=== PATIENT | female | born 1960 | race Caucasian/White ===

== ENCOUNTER → 2018-02-01 12:44 | Outpatient (CLI) | payer OTHER, SELFPAY ==
--- NOTE | 2018-02-01 12:46 | XR_ITS ---
XR DEXA axial skeleton HISTORY: ITS.REASON: menopausal ORDERING PHYSICIAN: Ozzie Palma MD PATIENT AGE: 57 years COMPARISON: None FINDINGS: The BMD measured at the left femoral neck is 0.905 g/cm squared with a T score of -1.0 . This is considered Normal according to the World Health Organization criteria. Fracture risk is Low. Treatment is advised. IMPRESSION: Normal bone density. Suggest follow-up exam January 2020
== END ==
PROVIDERS: PCP Internal Medicine Adolescent Medicine; Visit Provider Obstetrics & Gynecology
DX: Z13.820 Encounter for screening for osteoporosis (principal); Z78.0 Asymptomatic menopausal state
CPT/HCPCS: 77080

== ENCOUNTER → 2018-11-30 13:40 | Outpatient (CLI) | payer OTHER, SELFPAY ==
[2018-11-30 14:08] LABS: Basophils # 0.1 K/mm3 (0-0.2); Eosinophils # 0.4 K/mm3 (0.0-0.4); Eosinophils % 6.8 % (0.1-12.0); Hemoglobin 13.5 g/dL (12.2-16.2); Lymphocytes % 34.2 % (10-50); Mean Corpuscular HGB Conc 33.8 g/dL (31.8-35.4); Mean Corpuscular Volume 85.6 fl (81-99); Mean Platelet Volume 7.2 fl (7.4-10.4); Monocytes # 0.3 K/mm3 (0.1-1.0); Monocytes % 5.7 % (1.7-9.3); Neutrophils # 3.1 K/mm3 (1.8-7.8); Neutrophils % 52.3 % (37.0-80.0); Platelet Count 414 K/mm3 (142-424); Red Blood Count 4.67 M/mm3 (4.20-5.40); Red Cell Distribution Width 13.3 % (11.5-17.5); White Blood Count 5.8 K/mm3 (4.8-10.8)
[2018-11-30 15:29] LABS: Erythrocyte Sedimentation Rate 22 mm/hr (0-30)
[2018-11-30 15:53] LABS: Alanine Aminotransferase 31 U/L (12-78); Albumin Level 4.2 gm/dL (3.4-5.0); Albumin/Globulin Ratio 1.2 (1.1-1.8); Alkaline Phosphatase 109 U/L (46-116); Anion Gap 17.4 mEq/L (5-15); Aspartate Amino Transferase 24 U/L (15-37); Bilirubin,Total 0.3 mg/dL (0.2-1.0); Blood Urea Nitrogen 10 mg/dL (7-18); Carbon Dioxide 23 mmol/L (21.0-32.0); Chloride 104 mmol/L (98-107); Creatinine,Serum 0.73 mg/dL (0.55-1.02); Estimated Glomerular Filt Rate 82 ml/min (>60); Ferritin 172 ng/mL (8-388); GFR (African American) 99 ML/MIN (>60); Globulin 3.6 gm/dl (1.3-3.2); Glucose 65 mg/dL (74-106); Potassium 4.4 mmoL/L (3.5-5.1); Sodium 140 mmol/L (136-145); Total Protein,Serum 7.8 gm/dL (6.4-8.2)
[2018-11-30 16:27] LABS: C-Reactive Protein < 0.2 mg/L (0.0-0.9)
[2018-12-02 08:26] LABS: Iron 86 ug/dL (27-159); UIBC 309 ug/dL (131-425)
[2018-12-02 18:09] LABS: Iron Saturation 22 % (15-55)
== END ==
PROVIDERS: Visit Provider Internal Medicine Medical Oncology
DX: D47.3 Essential (hemorrhagic) thrombocythemia (principal)
CPT/HCPCS: 36415; 80053; 81270; 82728; 83540; 83550; 85025; 85651; 86140

== ENCOUNTER → 2019-01-15 11:51 | Outpatient (CLI) | payer OTHER, SELFPAY ==
[2019-01-15 12:39] LABS: Basophils # 0.1 K/mm3 (0-0.2); Basophils % 0.9 % (0.1-2.0); Eosinophils # 0.4 K/mm3 (0.0-0.4); Eosinophils % 6.6 % (0.1-12.0); Hematocrit 37.3 % (37.0-47.0); Hemoglobin 12.7 g/dL (12.2-16.2); Lymphocytes # 1.9 K/mm3 (0.7-4.5); Lymphocytes % 28.2 % (10-50); Mean Corpuscular Hemoglobin 29.3 pg (27.0-31.2); Mean Corpuscular Volume 86.2 fl (81-99); Mean Platelet Volume 7.5 fl (7.4-10.4); Monocytes # 0.3 K/mm3 (0.1-1.0); Monocytes % 4.3 % (1.7-9.3); Platelet Count 429 K/mm3 (142-424); Red Blood Count 4.33 M/mm3 (4.20-5.40); Red Cell Distribution Width 13.4 % (11.5-17.5); White Blood Count 6.6 K/mm3 (4.8-10.8)
== END ==
PROVIDERS: Visit Provider Internal Medicine Medical Oncology
DX: D47.3 Essential (hemorrhagic) thrombocythemia (principal)
CPT/HCPCS: 36415; 85025

== ENCOUNTER → 2019-06-22 14:49 | Outpatient (CLI) | payer OTHER, SELFPAY ==
[2019-06-22 15:26] LABS: Basophils # 0.1 K/mm3 (0-0.2); Basophils % 0.9 % (0.1-2.0); Eosinophils # 0.5 K/mm3 (0.0-0.4); Eosinophils % 7.7 % (0.1-12.0); Hemoglobin 12.6 g/dL (12.2-16.2); Lymphocytes # 1.9 K/mm3 (0.7-4.5); Lymphocytes % 27.9 % (10-50); Mean Corpuscular HGB Conc 32.3 g/dL (31.8-35.4); Mean Corpuscular Hemoglobin 28.9 pg (27.0-31.2); Mean Corpuscular Volume 89.3 fl (81-99); Mean Platelet Volume 7.7 fl (7.4-10.4); Monocytes # 0.4 K/mm3 (0.1-1.0); Monocytes % 5.5 % (1.7-9.3); Platelet Count 417 K/mm3 (142-424); Red Blood Count 4.37 M/mm3 (4.20-5.40); Red Cell Distribution Width 13.5 % (11.5-17.5); White Blood Count 6.9 K/mm3 (4.8-10.8)
== END ==
PROVIDERS: Visit Provider Internal Medicine Medical Oncology
DX: D64.9 Anemia, unspecified (principal)
CPT/HCPCS: 36415; 85025

== ENCOUNTER → 2019-11-09 12:55 | Outpatient (CLI) | payer OTHER, SELFPAY ==
[2019-11-09 14:31] LABS: Anion Gap 16.7 mEq/L (5-15); Blood Urea Nitrogen 12 mg/dl (7-17); Calcium 11.2 mg/dl (8.4-10.2); Carbon Dioxide 23 mmol/L (22.0-30.0); Chloride 103 mmol/L (98-107); Estimated Glomerular Filt Rate 102 ml/min (>60); GFR (African American) 124 ML/MIN (>60); Glucose 81 mg/dl (74-100); Potassium 4.7 mmoL/L (3.5-5.1); Sodium 138 mmol/L (136-145)
[2019-11-09 14:48] LABS: Free T4 (Free Thyroxine) 0.83 ng/dl (0.78-2.19)
[2019-11-09 15:03] LABS: Thyroid Stimulating Hormone 2.58 uIU/mL (0.465-4.68)
[2019-11-10 09:38] LABS: Lithium (Eskalith(R)) 0.9 mmol/L (0.6-1.2)
== END ==
PROVIDERS: Visit Provider Emergency Medicine
DX: R53.83 Other fatigue (principal)
CPT/HCPCS: 80048; 80178; 84439; 84443

== ENCOUNTER → 2019-11-12 13:31 | Outpatient (CLI) | payer OTHER, SELFPAY ==
[2019-11-16 11:22] LABS: Calcium, Ionized 5.8 mg/dL (4.5-5.6); Parathyroid Hormone Intact 26 pg/mL (15-65); Vitamin D 25 Hydroxy 50.5 ng/mL (30.0-100.0)
== END ==
PROVIDERS: Visit Provider Physician Assistant
DX: E83.52 Hypercalcemia (principal)
CPT/HCPCS: 36415; 82330; 82652; 83970

== ENCOUNTER → 2019-12-04 07:46 | Outpatient (CLI) | payer OTHER, SELFPAY ==
--- NOTE | 2019-12-04 07:46 | CT_ITS ---
PROCEDURE: CT LUNG SCREENING CLINICAL INDICATION: lung ca screening 30+ pack-year smoking history lung cancer the the COMPARISON: CHW CT CHEST W/ CONTRAST from 06/23/2017 TECHNIQUE: The exam was performed on a GE Light Speed [address] scanner using 2.90 mGy CTDI. A low dose helical CT CHEST was performed on a multi-detector scanner. All CT scans at the facility use one or more dose reduction, viz: automated exposure control, ma/kV adjustment per patient size (including targeted exams where dose is matched to indication, i.e. head), or iterative reconstruction technique. The LDCT was performed in a facility that meets the criteria for the screening program. Data regarding this exam was submitted to ACR which is an approved registry. The order for this exam indicates that it came as a result of a lung cancer screening counseling shard decision-making visit that included all the elements required of such a visit including smoking cessation. The radiologist interpreting this exam meets the CMS criteria for the LDCT lung cancer screening program. The exam is reported using the Lung-RADS classification scale and reported to the ACR registry. NOTE: This study was performed for the specific purposes of lung cancer screening and is not an alternative to diagnostic chest CT. RADIATION DOSE: CTDI vol(CT dose Index-volume) = 2.90mG DLP (Dose Length Product) = 103.42 mGcm FINDINGS: Changes of COPD. Fibrotic changes are present in the right middle lobe and lingula. No suspicious nodules are evident.. Granuloma is present in the left upper lobe. OTHER FINDINGS: No other pertinent findings evident. IMPRESSION: Lung rads category 1, negative Recommend annual LD CT Dictated by: Kwasi Jones MD 12/04/2019 14:17 Electronically signed by Kwasi Jones MD in [place] 12/04/2019 14:17
== END ==
PROVIDERS: PCP Emergency Medicine; Visit Provider Emergency Medicine
DX: Z87.891 Personal history of nicotine dependence (principal); Z12.2 Encounter for screening for malignant neoplasm of respiratory organs; E83.52 Hypercalcemia

== ENCOUNTER → 2019-12-17 10:07 | Outpatient (CLI) | payer OTHER, SELFPAY ==
[2019-12-17 10:58] LABS: Basophils # 0.1 K/mm3 (0-0.2); Eosinophils # 0.3 K/mm3 (0.0-0.4); Eosinophils % 5.8 % (0.1-12.0); Hematocrit 39.6 % (37.0-47.0); Hemoglobin 12.9 g/dL (12.2-16.2); Lymphocytes # 1.4 K/mm3 (0.7-4.5); Lymphocytes % 23.6 % (10-50); Mean Corpuscular HGB Conc 32.7 g/dL (31.8-35.4); Mean Corpuscular Volume 88.7 fl (81-99); Monocytes # 0.3 K/mm3 (0.1-1.0); Monocytes % 4.5 % (1.7-9.3); Neutrophils # 3.7 K/mm3 (1.8-7.8); Neutrophils % 65.1 % (37.0-80.0); Platelet Count 395 K/mm3 (142-424); Red Blood Count 4.46 M/mm3 (4.20-5.40); Red Cell Distribution Width 13.3 % (11.5-17.5); White Blood Count 5.7 K/mm3 (4.8-10.8)
[2019-12-17 11:58] LABS: Ferritin 129 ng/ml (11.1-264)
[2019-12-18 03:36] LABS: Iron 85 ug/dL (27-159); UIBC 301 ug/dL (131-425)
[2019-12-18 06:58] LABS: Iron Saturation 22 % (15-55)
== END ==
PROVIDERS: Visit Provider Internal Medicine Medical Oncology
DX: D64.9 Anemia, unspecified (principal)
CPT/HCPCS: 36415; 82728; 83540; 83550; 85025

== ENCOUNTER → 2019-12-25 11:27 | Outpatient (CLI) | payer OTHER, SELFPAY ==
[2019-12-25 13:18] LABS: Alanine Aminotransferase 22 U/L (12-78); Albumin Level 4.7 g/dl (3.5-5.0); Albumin/Globulin Ratio 1.7 (1.1-1.8); Alkaline Phosphatase 122 U/L (38-126); Anion Gap 13.6 mEq/L (5-15); Aspartate Amino Transferase 31 U/L (14-36); Bilirubin,Total 0.4 mg/dl (0.2-1.3); Blood Urea Nitrogen 10 mg/dl (7-17); Calcium 10.7 mg/dl (8.4-10.2); Carbon Dioxide 23 mmol/L (22.0-30.0); Chloride 106 mmol/L (98-107); Estimated Glomerular Filt Rate 102 ml/min (>60); GFR (African American) 123 ML/MIN (>60); Globulin 2.8 g/dL (1.3-3.2); Potassium 4.6 mmoL/L (3.5-5.1); Sodium 138 mmol/L (136-145); Total Protein,Serum 7.5 g/dl (6.3-8.2)
[2019-12-25 13:47] LABS: Thyroid Stimulating Hormone 2.24 uIU/mL (0.465-4.68)
[2019-12-25 14:00] LABS: Glucose 42 mg/dl (74-100)
[2019-12-26 12:56] LABS: Hemoglobin A1C 5.1 % (4.0-6.0)
[2019-12-28 09:16] LABS: Lithium (Eskalith(R)) 0.8 mmol/L (0.6-1.2)
== END ==
PROVIDERS: Visit Provider Nurse Practitioner Psychiatric/Mental Health
DX: Z00.00 Encounter for general adult medical examination without abnormal findings (principal); F31.9 Bipolar disorder, unspecified; Z79.899 Other long term (current) drug therapy
CPT/HCPCS: 36415; 80053; 80178; 83036; 84443

== ENCOUNTER 2020-01-28 10:27 | Observation (INO) | payer OTHER, SELFPAY ==
[2020-01-28] VITALS (10 sets, daily range): BP systolic 100–148; BP diastolic 72–82; PULSE 77–103; RESP 18–22; TEMP 36.6–37.3; O2SAT 91–100; BMI 26.2; BMI 26.7
--- NOTE | 2020-01-28 10:33 | ECG_ITS ---
APPROVED REPORT Exam: Resting ECG HR:77 bpm ECG Measurements Heart Rate 77 AXES FL 148 P 62 QRSd 82 QRS 63 QT 384 T 72 QTc 434 <Conclusion> Normal sinus rhythm Normal ECG Electronically signed by : Luigi Oconnell, 01/29/2020 15:52:34
--- NOTE | 2020-01-28 10:34 | XR_ITS ---
PROCEDURE: XR CHEST PORTABLE CLINICAL HISTORY: pain COMPARISON: CXR CHEST(2 VIEWS-NOT PORTABLE) from 04/22/[address] CHEST W/ CONTRAST from 06/23/2017 FINDINGS: The cardiomediastinal silhouette and pulmonary vascularity are within normal limits. There are mild atelectatic changes in the lung bases. Upper lobes are clear. No acute bony abnormalities. IMPRESSION: Mild bibasilar atelectasis Dictated by: Kwasi Jones MD 01/28/2020 10:48 Electronically signed by Kwasi Jones MD in [place] 01/28/2020 10:48
--- NOTE | 2020-01-28 10:37 | PC.NURSE ---
Rad at bedside
--- NOTE | 2020-01-28 10:43 | CT_ITS ---
PROCEDURE: CT ABDOMEN PELVIS WO CON CLINICAL INDICATION: pain Mid epigastric pain COMPARISON: No exams were available for comparison TECHNIQUE: Axial images obtained with sagittal and coronal reformats. All CT scans at the facility use one or more dose reduction, viz: automated exposure control, ma/kV adjustment per patient size (including targeted exams where dose is matched to indication, i.e. head), or iterative reconstruction technique. FINDINGS: LOWER THORAX: There are some atelectatic changes in the lung bases. Small metallic density is noted in the right breast inferior aspect. ABDOMEN & PELVIS: The liver, spleen, adrenal glands, pancreas, and kidneys have an unremarkable unenhanced CT appearance. Prior cholecystectomy. There is a small metallic density along the right aspect of the celiac artery and may be due to a displaced clip. This is not significantly changed. The There is thickening of the colon throughout which may be due to nondistention or colitis. A clip is present in the right lower quadrant. There was reported prior appendectomy. There is some fluid density in the cecum. There are post hysterectomy changes. No intestinal obstruction or free air. No acute bony anomalies. IMPRESSION: 1. Mild diffuse thickening of the colon which may be seen with colitis or may be due to nondistention. There is fatty infiltration of the wall of the colon. This is a nonspecific finding and could be seen with prior inflammation or obesity. 2. Otherwise negative. Dictated by: Kwasi Jones MD 01/28/2020 11:45 Electronically signed by Kwasi Jones MD in [place] 01/28/2020 11:45
--- NOTE | 2020-01-28 10:47 | HMH.EDGENADL ---
ED Disposition Clinical Impression: Bipolar 1 disorder Abdominal pain Qualifiers: Abdominal location: epigastric Qualified Code(s): R10.13 - Epigastric pain Disposition: Admitted as Observation Condition on Discharge: Good - Critical Care Critical Care Time: No Attestation: On 01/28/20, the high probability of a clinically significant, sudden or life threatening deterioration of the following system(s) required my full and direct attention, intervention and personal management. The time I documented below is in addition to time spent performing reported procedures but includes the following listed in this critical care notation. Medical Decision Making - Medical Records Medical records reviewed: Yes: I reviewed the patient's medical records. - Jd Inquiry Pt receiving controlled substance: No Vital Signs: 01/28/20 10:28 01/28/20 11:25 01/28/20 11:33 Temperature 99.1 F Temperature Source Oral Pulse Rate [Left Radial] 94 H 77 78 Respiratory Rate 20 Blood Pressure [Right Arm] 100/78 L 148/73 H 136/82 Blood Pressure Mean [Right Arm] 85 98 100 Blood Pressure Source [Right Arm] Automatic Cuff Automatic Cuff Blood Pressure Position [Right Arm] Sitting Sitting Sitting 02 Sat by Pulse Oximetry 98 97 98 Oxygen Delivery Method Room Air Room Air Room Air 01/28/20 11:58 Temperature Temperature Source Pulse Rate [Left Radial] 96 H Respiratory Rate Blood Pressure [Right Arm] 125/72 Blood Pressure Mean [Right Arm] 89 Blood Pressure Source [Right Arm] Automatic Cuff Blood Pressure Position [Right Arm] Right Lateral 02 Sat by Pulse Oximetry 100 Oxygen Delivery Method Room Air - Lab Data Lab results reviewed: Yes: I reviewed the patient's lab results. Lab Results 01/28/20 10:40: WBC 8.3, RBC 4.77, Hgb 14.3, Hct 42.0, MCV 88.2, MCH 30.0, MCHC 34.0, RDW 13.8, Plt Count 450 H, MPV 7.8, Neut % (Auto) 77.7, Lymph % (Auto) 17.5, [place] % (Auto) 3.6, Eos % (Auto) 0.7, Baso % (Auto) 0.5, Neut # (Auto) 6.5, Lymph # (Auto) 1.5, [place] # (Auto) 0.3, Eos # (Auto) 0.1, Baso # (Auto) 0.0 01/28/20 10:40: Sodium 136, Potassium 3.9, Chloride 103, Carbon Dioxide 22, Anion Gap 14.9, BUN 11, Creatinine 0.60, Estimated Creat Clear 93, Estimated GFR 102, Est GFR ( Amer) 123, Glucose 202 H, Calcium 10.2, Total Bilirubin 0.5, AST 61 H, ALT 37, Alkaline Phosphatase 109, Troponin I < 0.01, Total Protein 8.5 H, Albumin 5.1 H, Globulin 3.4 H, Albumin/Globulin Ratio 1.5, Amylase 78, Lipase 92 Result diagrams: 01/28/20 10:40 01/28/20 10:40 Orders (Tests/Meds): ED MEDICATIONS Generic Name Dose Route Start Last Admin Trade Name Freq PRN Reason Stop Dose Admin Sodium Chloride 1,000 mls @ 999 mls/hr 01/28/20 11:45 01/28/20 11:37 Sod Chlor 0.9% 1000ml Bag IV 01/28/20 12:45 999 mls/hr .Q1H1M MARIA M Administration Sodium Chloride 8 ml 01/28/20 10:44 Sodium Chloride 0.9% 10ml Vial IV 02/27/20 10:43 NEEDED PRN dilute pepcid Discontinued Medications Generic Name Dose Route Start Last Admin Trade Name Freq PRN Reason Stop Dose Admin Famotidine 20 mg 01/28/20 10:44 01/28/20 10:52 Pepcid 20mg/2ml Vial IV 01/28/20 10:45 20 mg ONCE ONE Administration Hydromorphone HCl 1 mg 01/28/20 12:05 01/28/20 12:06 Dilaudid 2mg/Ml Syringe IV 01/28/20 12:06 1 mg ONCE ONE Administration Metoclopramide HCl 10 mg 01/28/20 10:44 01/28/20 10:52 Reglan 10mg/2ml Vial IVP 01/28/20 10:45 10 mg ONCE ONE Administration Ondansetron HCl 4 mg 01/28/20 12:06 01/28/20 12:06 Zofran 4mg/2ml Vial IV 01/28/20 12:07 4 mg ONCE ONE Administration ORDERS Category Date Time Status [place] ([place]al[place](R)) Stat Lab 01/28/20 10:40 Received Rapid Coronavirus-19 IgG/IgM Stat Lab 01/28/20 11:51 Ordered Troponin I Q3H Lab 01/28/20 13:45 Ordered Troponin I Q3H Lab 01/28/20 16:45 Ordered - Radiology Data #1 Image(s): Chest Image Reviewed: Yes I reviewed the patient's rad
[2020-01-28 10:51] LABS: Basophils % 0.5 % (0.1-2.0); Eosinophils # 0.1 K/mm3 (0.0-0.4); Eosinophils % 0.7 % (0.1-12.0); Hemoglobin 14.3 g/dL (12.2-16.2); Lymphocytes # 1.5 K/mm3 (0.7-4.5); Lymphocytes % 17.5 % (10-50); Mean Corpuscular Volume 88.2 fl (81-99); Mean Platelet Volume 7.8 fl (7.4-10.4); Monocytes # 0.3 K/mm3 (0.1-1.0); Monocytes % 3.6 % (1.7-9.3); Neutrophils # 6.5 K/mm3 (1.8-7.8); Neutrophils % 77.7 % (37.0-80.0); Platelet Count 450 K/mm3 (142-424); Red Blood Count 4.77 M/mm3 (4.20-5.40); Red Cell Distribution Width 13.8 % (11.5-17.5); White Blood Count 8.3 K/mm3 (4.8-10.8)
[2020-01-28 10:56] LABS: Alanine Aminotransferase 37 U/L (12-78); Albumin Level 5.1 g/dl (3.5-5.0); Albumin/Globulin Ratio 1.5 (1.1-1.8); Alkaline Phosphatase 109 U/L (38-126); Amylase 78 U/L (30-110); Anion Gap 14.9 mEq/L (5-15); Aspartate Amino Transferase 61 U/L (14-36); Bilirubin,Total 0.5 mg/dl (0.2-1.3); Blood Urea Nitrogen 11 mg/dl (7-17); Calcium 10.2 mg/dl (8.4-10.2); Carbon Dioxide 22 mmol/L (22.0-30.0); Chloride 103 mmol/L (98-107); Creatinine Clearance Estimated 93 mL/min (50-200); Estimated Glomerular Filt Rate 102 ml/min (>60); GFR (African American) 123 ML/MIN (>60); Globulin 3.4 g/dL (1.3-3.2); Glucose 202 mg/dl (74-100); Lipase 92 U/L (23-300); Potassium 3.9 mmoL/L (3.5-5.1); Sodium 136 mmol/L (136-145); Total Protein,Serum 8.5 g/dl (6.3-8.2)
[2020-01-28 11:11] LABS: Troponin I < 0.01 ng/ml (0.00-0.034)
--- NOTE | 2020-01-28 11:49 | PC.NURSE ---
Calling Dr Cornejo at this time.
[2020-01-28 12:20] LABS: Coronavirus 19 IgG Antibody Negative (Negative); Coronavirus 19 IgM Antibody Negative (Negative)
--- NOTE | 2020-01-28 12:22 | PC.NURSE ---
attempted to call report no answer, will call back
--- NOTE | 2020-01-28 12:30 | PC.NURSE ---
Report received from Michelle Davila RN in ER.
--- NOTE | 2020-01-28 13:07 | HMH.PHAVTE ---
[facility] Pharmacy VTE Monitoring - Patient Demographics Admission date: 01/28/20 Report Date: 01/28/20 Time: 13:07 Allergies/Adverse Reactions: Patient Allergies Penicillins [PENICILLINS] Allergy (Unknown, Verified 12/24/19 14:10) Height: 1.5 m Weight: 60.016 kg Patient Problems: Current Active Problems Abdominal pain (Acute) Bipolar 1 disorder (Acute) - VTE Risk Labs: VTE Related Lab Results Hgb 14.3 g/dL (12.2-16.2) 01/28/20 10:40 Hct 42.0 % (37.0-47.0) 01/28/20 10:40 Plt Count 450 K/mm3 (142-424) H 01/28/20 10:40 BUN 11 mg/dl (7-17) 01/28/20 10:40 Creatinine 0.60 mg/dl (0.52-1.04) 01/28/20 10:40 Estimated Creat Clear 93 mL/min (50-200) 01/28/20 10:40 - Prophylaxis VTE Prophylaxis Ordered?: Yes Types of VTE Prophylaxis: TEDS Knee High Location of Applied Device: Bilateral Lower Extremeties
--- NOTE | 2020-01-28 13:14 | PC.NURSE ---
Dr Amato speaking with Fernando Benoit
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
[2020-01-28 15:33] LABS: Troponin I < 0.01 ng/ml (0.00-0.034)
[2020-01-28 17:34] LABS: Troponin I < 0.01 ng/ml (0.00-0.034)
--- NOTE | 2020-01-28 19:08 | PC.NURSE ---
report given to tj
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
[2020-01-29] VITALS (16 sets, daily range): BP systolic 118–154; BP diastolic 49–89; PULSE 78–116; RESP 16–20; TEMP 36.1–37.7; O2SAT 96–100; BMI 27.8
--- NOTE | 2020-01-29 05:40 | PC.NURSE ---
Pt is alert and oriented. Complains of epigastic pain medicate per MAR. Pt guarding Abd. Hyperactive bowel sound in all 4 quadrants. Lungs clear throughout 97% on room air.Pt's heart rate has been between 88-102 regular rhythm. Pt was able to rest comfortably after midnight with no complaints of N/V or Abd pain. Pt shower and receive full linen change. Pt removed TEDS after shower. Consent signed and on chart for EGD this am has been NPO since midnight.
[2020-01-29 06:27] LABS: Basophils % 0.2 % (0.1-2.0); Eosinophils # 0.1 K/mm3 (0.0-0.4)
[2020-01-29 06:33] LABS: Chloride 109 mmol/L (98-107); Potassium 3.7 mmoL/L (3.5-5.1); Sodium 137 mmol/L (136-145)
[2020-01-29 06:36] LABS: Anion Gap 10.7 mEq/L (5-15); Blood Urea Nitrogen 8 mg/dl (7-17); Carbon Dioxide 21 mmol/L (22.0-30.0); Creatinine Clearance Estimated 119 mL/min (50-200); Estimated Glomerular Filt Rate 126 ml/min (>60); GFR (African American) 152 ML/MIN (>60); Glucose 139 mg/dl (74-100)
[2020-01-29 06:46] LABS: Eosinophils % 0.4 % (0.1-12.0); Hematocrit 33.9 % (37.0-47.0); Lymphocytes # 1.6 K/mm3 (0.7-4.5); Mean Corpuscular HGB Conc 33.7 g/dL (31.8-35.4); Mean Corpuscular Hemoglobin 29.6 pg (27.0-31.2); Mean Corpuscular Volume 87.9 fl (81-99); Mean Platelet Volume 7.4 fl (7.4-10.4); Monocytes # 0.5 K/mm3 (0.1-1.0); Neutrophils # 10.9 K/mm3 (1.8-7.8); Neutrophils % 83.4 % (37.0-80.0); Platelet Count 384 K/mm3 (142-424); Red Blood Count 3.86 M/mm3 (4.20-5.40)
[2020-01-29 06:48] LABS: Hemoglobin 11.4 g/dL (12.2-16.2)
[2020-01-29 06:57] LABS: Calcium 8.5 mg/dl (8.4-10.2)
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
[2020-01-29 09:52] LABS: Lithium (Eskalith(R)) 0.2 mmol/L (0.6-1.2)
--- NOTE | 2020-01-29 10:01 | PC.NURSE ---
Pt went down at 0937 to radiology for modified barium swallow. Pt refused to do egd and stated they're not tricking me are they? This nuse explained that she was going for the modified barium swallow and she was ok with this. Surgery came to floor and stated pt was now wanting to proceed with egd. Surgery RN took pts chart, consent and peop check list done by security shift supervisor. Dr. Amato and Virginia Mason aprn were in room this am, and were aware of pt refusing to do egd. This nurse will make Dr. Amato aware of this. Awaiting update at this time. VSS before going for modified barium swallow.
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
--- NOTE | 2020-01-29 11:24 | INFXCTL.NOTE ---
Did call and speak to Shravan Mason APRN and make him aware that per surgery RN pt was going to have egd done.
--- NOTE | 2020-01-29 11:56 | HMH.SCOPE ---
- Procedure: Date: 01/29/20 Procedure Performed:: Esophagogastroduodenoscopy with biopsies Indications:: Patient is a 59-year-old female. She presented with significant epigastric pain and was admitted for inpatient management. Surgical consultation was obtained for upper endoscopy. Patient had previously had cholecystectomy at [facility]. I had actually performed EGD and colonoscopy on her in September 2018. Performing Provider:: Rinku Cornejo MD Referring Provider:: Federico Amato MD Sedation:: Propofol Procedure:: Patient was taken to endoscopy procedure room. She was positioned in a lateral decubitus position. Adequate intravenous sedation was achieved with anesthesia titration of propofol. Olympus endoscope was inserted via the oropharynx and advanced to the esophagus. Esophagus appeared unremarkable. Stomach was cannulated and insufflated retroflexion revealed a very tiny sliding hiatal hernia. Gastric lumen was unremarkable. Pylorus was widely patent and endoscope was advanced through the pylorus to the third portion of the duodenum. Duodenum and duodenal bulb were unremarkable. Endoscope was withdrawn into the gastric lumen and gastric antral mucosal biopsy was obtained for histopathologic analysis and for H. pylori assessment. A couple biopsies were obtained at the gastroesophageal junction. Couple biopsies were obtained at the distal esophagus to rule out microscopic esophagitis. Endoscope was withdrawn. Findings:: Very small tiny sliding hiatal hernia. Otherwise unremarkable upper endoscopy Recommendations:: No obvious etiology for epigastric pain on upper endoscopy Complications:: None Estimated blood obtained (mL): 2
--- NOTE | 2020-01-29 14:07 | P.PN_ITS ---
Internal Medicine - PN: Subj *Date: 01/29/20 *Time: 17:57 Interval history: 59-year-old female patient sitting up in bed in no apparent distress. Discussed upcoming EGD today, she is refusing procedure, possible medical outcomes explained she still continues to refuse procedure. Barium swallow ordered, patient is agreeable to this. at bedside and reports that is not taking her behavioral health medicine, patient reports she has them at home but she stopped taking them herself. Will consult Exam Vital signs and Labs for Last 24 Hours: Temp Pulse Resp BP Pulse Ox 98.6 F 79 18 142/73 H 96 01/29/20 12:45 01/29/20 12:45 01/29/20 12:45 01/29/20 12:45 01/29/20 12:45 Laboratory Results - last 24 hr 01/28/20 10:40: [place] 0.2 L 01/28/20 14:45: Troponin I < 0.01 01/28/20 17:04: Troponin I < 0.01 01/29/20 06:00: WBC 13.0 H D, RBC 3.86 L, Hgb 11.4 L D, Hct 33.9 L, MCV 87.9, MCH 29.6, MCHC 33.7, RDW 14.0, Plt Count 384, MPV 7.4, Neut % (Auto) 83.4 H, Lymph % (Auto) 12.0, [place] % (Auto) 4.0, Eos % (Auto) 0.4, Baso % (Auto) 0.2, Neut # (Auto) 10.9 H, Lymph # (Auto) 1.6, [place] # (Auto) 0.5, Eos # (Auto) 0.1, Baso # (Auto) 0.0 01/29/20 06:00: Sodium 137, Potassium 3.7, Chloride 109 H, Carbon Dioxide 21 L, Anion Gap 10.7, BUN 8 D, Creatinine 0.50 L, Estimated Creat Clear 119, Es timated GFR 126, Est GFR ( Amer) 152 D, Glucose 139 H D, Calcium 8.5 D I & O for Last 24 hours: Intake & Output 01/26/20 01/27/20 01/28/20 01/29/20 23:59 23:59 23:59 23:59 Intake Total 520 / 520 1455 / 1455 Output Total 300 / 300 Balance 520 / 520 1155 / 1155 Weight 132 lb 5 oz 138 lb 7 oz - Constitutional no acute distress - *Routine HEENT Exam Head: Present: normocephalic ENT: Present: mucous membranes moist - *Routine Neck Exam Present: full ROM, trachea midline. Absent: JVD, tracheal deviation - *Routine Respiratory Exam Present: CTA bilaterally. Absent: accessory muscle use - *Routine Cardiovascular Exam Present: RRR - *Routine Abdominal Exam Present: soft, normoactive bowel sounds. Absent: tenderness, firm - *Routine Extremities Exam Present: full ROM, pulses intact. Absent: cyanosis, calf tenderness - *Routine Neurological Exam Present: alert, oriented X3 - Routine Psychiatric Exam Present: unable to assess Assessment and Plan (1) Abdominal pain Current visit: Yes Status: Acute Qualifiers: Abdominal location: epigastric Qualified Code(s): R10.13 - Epigastric pain Category: Medical Code(s): R10.9 - Unspecified abdominal pain (2) Overweight with body mass index (BMI) 25.0-29.9 Current visit: No Status: Acute Category: Medical Code(s): E66.3 - Overweight (3) Bipolar 1 disorder Current visit: Yes Status: Acute Category: Medical Code(s): F31.9 - Bipolar disorder, unspecified - Assessment and plan all Dx Assessment and Plan for all problems:: Rounded w/ Dr. Amato, all orders per Dr. Amato 1. Barium Swallow
--- NOTE | 2020-01-29 16:00 | PC.NURSE ---
Called and clarified with Shravan Mason APRN that it was ok to schedule stress test for the am and also to cancel modified barium swallow. Have made Tanna at ext [phone] aware of the above. Have also called x [address] Amato/ Virginia Mason APRN aware Of Mary Kay Gilliland request for pt to have lithium 300 mg bid, wellbutrin xl q am 150 mg, and a one time dose of ativan or valium, because Mary Kay stated she is withdrawing from her psych meds likely. Called at 1538 and 1601. Awaiting cb at this time. Will cont to mx pt.
[2020-01-29 16:01] LABS: POC Glucose,Bedside 127 (70-110)
--- NOTE | 2020-01-29 16:49 | HMH.BHCONS ---
*Admission Date: 01/28/20 *Reason for consult:: bipolar disorder *History of present illness: I was consulted on patient regarding her medications; to evaluate these and see what she needs to be taking. I see her on an outpatient basis for her psychiatric medications. -I last saw her in my office on 01/24/2020. The plan was to taper her off her effexor; to decrease from 75mg daily down to 50mg daily for 2 weeks; then for her to cut them in 1/2 and take 25mg for 2 weeks then stop the medicine. -she did verbalize her understanding in the office. She states now that she totally stopped her effexor cold turkey when she got home. that she told her we were stopping this and she hasn't had it since then. -she originally came to the ER yesterday for epigastric pain -here for work up for this -and I was consulted to look into psychiatric medications -she states that she got confused and didn't remember what we talked about in my office She states that her came in today talking about her seeing a provider (myself) that was taking her off all her medications. That it was not safe and he had to deal with her at home. No us. I called her ; Roberto. -Som requested this -she is a poor historian -she states that he keeps her medications and gives them to her as they are prescribed -but with the COVID-19; he hasn't been coming to her appointments with her He did answer when I called. He states that she has been off her medications for some time. He states that she stopped the Effexor after her 1st visit here. Then she recently stopped the wellbutrin cold turkey. He states that he knew something was off cause she was being a total 'bitch' to him. That she was snappy; irritable; yelling more. -states that before this he would find the pills in the trash where she wasn't taking them I discussed with him and her what the plan was at our last appointment. (see above) They both agree to the above. She should be taking the following medications: 1. [place] 300mg BID -last lithium level was 0.8 on 12/25/2019 -however; lithium level drawn on 01.28.2020 in the ER was only 0.2; not sure of compliance here 2. Wellbutrin XL 150mg daily in the am MMSE: Examination reveals patient to have no apparent serious mental status abnormalities. Patient is normal in appearance with age appropriate dress and grooming and appears to be stated age. Neither depression nor mood elevation is evident. Speech is normal in rate, volume, and articulation and language skills are intact. Patient convincingly denies suicidal and self injurious ideas or intentions. Homicidal or assaultive ideas or intentions are also denied. Hallucinations and delusions are denied and behavior is generally appropriate. Associations are intact, thinking is basically logical and thought content is appropriate. There are no signs of cognitive difficulty, based on vocabulary and fund of knowledge. Memory is intact for recent and remote events and the patient is oriented to time, place, and person. There are no apparent signs of anxiety. A normal attention span is in evidence and patient exhibits no signs of hyperactivity. Insight and judgment appear intact. RECOMMENDATIONS: 1. [place] 300mg BID -last lithium level was 0.8 on 12/25/2019 -however; lithium level drawn on 01.28.2020 in the ER was only 0.2; not sure of compliance here 2. Wellbutrin XL 150mg daily in the am 3. She will need to continue to see me on an outpatient basis for psychotropic medication management. -next appointment is set for 02.21.2020 at 1000. TIME IN: 1515 time out : 1600 [facility] History Medical History: Reports:: Anxiety, Depression, Gastroesophageal Reflux Disease(GERD), Hyperlipidemia, Hypertension, Seizures Denies:: Cancer, Diabetes Mellitus Type 1, Diabetes Mellitus Type 2, Internal Pacemaker, Lung Disease, MRSA *Have you ever received a pneumonia vaccine?: No *Have you received a flu vaccine this season?: No An
--- NOTE | 2020-01-29 17:03 | PC.NURSE ---
Spoke with Dr. Oconnell and he did re order pts lithium and bupropion xl as odered per home med list and to give first dose now.
--- NOTE | 2020-01-29 20:14 | PC.NURSE ---
Pt alert and oriented and able to make needs known. RR even and unlabored. Current temp 98.4. PRN tylenol given earlier this shift in RE to temp 99.9. Did make Val in Dr. Burton office of Mary Kay Gilliland, nurse pract's request for meds and she stated Dr. Amato was out of the office and he would be in ER tonight. Dr. Oconnell integration software engineer and gave order's. See other nurse's note. CB in reach. has been here intermittently this shift. VSS. Pt is calm and pleasant currently. Report given to current RN
--- NOTE | 2020-01-30 | CA_ITS ---
APPROVED REPORT Exam: Pharmacologic Technologist: Mahi Flores, Ht: 4 ft 11 in Wt: 130 lbs BSA: 1.54 m2 HR: 98 bpm BP: 170/71 mmHg Indications: Chest pain Medical History Medications: buPRopion, gemfibrozil. Asa, Omperazole, Venalafaxine, Deport Allergies: PCN Cardiac Risk Factors: Hyperlipidemia Stress Test Details Test: LEXISCAN HR Resting HR: 106 bpm Max Heart Rate (APMHR): 160 bpm Max HR Achieved: 130 bpm Target HR (85% APMHR): 136 bpm % of APMHR: 81 Recovery HR: 119 bpm BP Resting BP: 170/71 mmHg Max BP: 170/71 mmHg Recovery BP: 151.0/71.0 mmHg ECG Resting ECG: NSRBrief SOA with mild nausea Clinical Exercise duration: 04:01 min Highest Stage Achieved: Stress ECG Conclusion Brief SOA with mild nausea and malaise during peak infusion that resolved during recovery. No chest pain. No arrhythmia. NS T wave flattening. Unremarkable lexiscan. Images reported separetly. Test Summary REST . . . . . . . Resting REST 03:10 . . 106 . 170/ 71 . . Stage 1 01:00 . . 127 . . . . Stage 2 01:00 . . 126 . 157/ 73 . . Stage 3 01:00 . . 120 . 158/ 72 . . Stage 4 01:00 . . 120 . 151/ 74 . . Stage 4 01:01 . . 120 . 151/ 74 . Stop exercise at 04:01 RECOVERY 01:00 . . 120 . . . . RECOVERY 02:00 . . 120 . . . . RECOVERY 03:00 . . 117 . 151/ 71 . . RECOVERY 04:00 . . 116 . 151/ 71 . . RECOVERY 04:18 . . 119 . 151/ 71 . . Electronically signed by : John Sadler, 01/31/2020 09:26:18
--- NOTE | 2020-01-30 03:25 | PC.NURSE ---
A&O X4. PT RESTED WELL WITH EYES CLOSED T/O SHIFT. PT DENIES PAIN. DENIES N/V. C/O DIARRHEA T/O PREVIOUS SHIFT. WILL PLAN TO COLLECT FOR STOOL SPECIMEN UPON NEXT BM. REMAINS NPO SINCE 0000 FOR STRESS TESTING THIS AM. BILATERAL LUNGS NOTED CLEAR T/O UPON AUSCULTATION. TOLERATES RA WELL. VSS. REMAINS SAFE. CALL LIGHT WITHIN REACH. WILL CONTINUE TO MONITOR.
[2020-01-30 03:58] VITALS: BP 126/80; PULSE 75; RESP 16; TEMP 37.1; O2SAT 98
[2020-01-30 05:09] VITALS: BMI 27.7
[2020-01-30 06:45] LABS: Basophils % 0.3 % (0.1-2.0); Eosinophils # 0.3 K/mm3 (0.0-0.4); Eosinophils % 3.5 % (0.1-12.0); Hematocrit 33.8 % (37.0-47.0); Hemoglobin 11.3 g/dL (12.2-16.2); Lymphocytes # 1.8 K/mm3 (0.7-4.5); Lymphocytes % 23.7 % (10-50); Mean Corpuscular HGB Conc 33.6 g/dL (31.8-35.4); Mean Corpuscular Hemoglobin 29.6 pg (27.0-31.2); Mean Corpuscular Volume 88.3 fl (81-99); Mean Platelet Volume 7.9 fl (7.4-10.4); Monocytes # 0.4 K/mm3 (0.1-1.0); Monocytes % 5.9 % (1.7-9.3); Neutrophils % 66.7 % (37.0-80.0); Platelet Count 365 K/mm3 (142-424); Red Blood Count 3.83 M/mm3 (4.20-5.40); Red Cell Distribution Width 13.8 % (11.5-17.5); White Blood Count 7.5 K/mm3 (4.8-10.8)
[2020-01-30 07:01] LABS: Chloride 109 mmol/L (98-107); Sodium 140 mmol/L (136-145)
[2020-01-30 07:02] LABS: Potassium 3.5 mmoL/L (3.5-5.1)
[2020-01-30 07:04] LABS: Blood Urea Nitrogen 6 mg/dl (7-17); Creatinine Clearance Estimated 118 mL/min (50-200); Estimated Glomerular Filt Rate 126 ml/min (>60); GFR (African American) 152 ML/MIN (>60)
[2020-01-30 07:05] LABS: Anion Gap 11.5 mEq/L (5-15); Carbon Dioxide 23 mmol/L (22.0-30.0); Glucose 126 mg/dl (74-100)
[2020-01-30 08:00] VITALS: BP 167/84; PULSE 86; RESP 18; TEMP 36.8; O2SAT 99
--- NOTE | 2020-01-30 08:00 | NM_ITS ---
APPROVED REPORT Exam: Nuclear Stress Test Indication: Chest pain, High cholesterol, Former tobacco use Patient Location: Inpatient Stress Tech: Mahi Flores HI Tech:Tanna Cotto VAMSHIT, RT (R)(N) Ht: 4 ft 11 in Wt: 130 lbs Bra Size: 36B HR: 98 bpm BP: 170/71 mmHg BSA: 1.54 m2 BMI: 26.2 History: Chest pain, High cholesterol, Former tobacco use Procedure: Patient received a 0.4 mg of intravenous Lexiscan, resting heart rate 98 bpm, resting blood pressure 170/71 mmHg, with Lexiscan maximum heart rate achived was 126 bpm which is % of the maximum predicted heart rate and blood pressure was 157/73 mmHg. With Lexiscan, patient denied any complaint of chest pain. Cardiac Stress and Resting SPECT Images: Cardiac Stress and Resting SPECT images were obtained using technetium 99m Myoview 30.7 mCi stress and 10.52 mCi at rest. Fixed defect involves the apex consistent with an area of infarction No reversible defects evident Normal EF 71% Conclusion: Fixed defect involves the apex consistent with an area of infarction No reversible defects evident Normal EF 71% Electronically signed by : Kwasi Jones MD 01/30/2020 13:41:22
--- NOTE | 2020-01-30 13:45 | HMH.DCSUM ---
General - General Admission date:: 01/28/20 Discharge date: 01/30/20 HPI HPI: this pt has progressive upper abd pain over the last 3 days- pt with no melena and was seen in the ed and had persistent pain despite meds in the ed and was admitted for eval and treatment Hospital Course Hospital Course: 59-year-old female patient presented to the emergency room with complaints of epigastric pain for 3 days she she does admit to nausea, denies emesis, fever chills body ache. She also denies radiation of pain, melena, EtOH, or NSAID use. In the ER she received famotidine, hydromorphone, metoclopramide, ondansetron, and IV fluids. CBC and BMP were unremarkable, lithium level was 0.2. Trop NEG x 3, COVID IgG/IgM NEG 01/28/20 CXR: IMPRESSION: Mild bibasilar atelectasis Dictated by: Dr. Jones 01/28/20 Abd/Pelvis: IMPRESSION: 1. Mild diffuse thickening of the colon which may be seen with colitis or may be due to nondistention. There is fatty infiltration of the wall of the colon. This is a nonspecific finding and could be seen with prior inflammation or obesity. 2. Otherwise negative. Dictated by: Robert 01/30/20 BH seen and rec: RECOMMENDATIONS: 1. [place] 300mg BID -last lithium level was 0.8 on 12/25/2019 -however; lithium level drawn on 01.28.2020 in the ER was only 0.2; not sure of compliance here 2. Wellbutrin XL 150mg daily in the am 3. She will need to continue to see me on an outpatient basis for psychotropic medication management. -next appointment is set for 02.21.2020 at 1000 (Per Corazon ENGINE HEAD REPAIRER). 01/30/20 EGD: Procedure:: Patient was taken to endoscopy procedure room. She was positioned in a lateral decubitus position. Adequate intravenous sedation was achieved with anesthesia titration of propofol. Olympus endoscope was inserted via the oropharynx and advanced to the esophagus. Esophagus appeared unremarkable. Stomach was cannulated and insufflated retroflexion revealed a very tiny sliding hiatal hernia. Gastric lumen was unremarkable. Pylorus was widely patent and endoscope was advanced through the pylorus to the third portion of the duodenum. Duodenum and duodenal bulb were unremarkable. Endoscope was withdrawn into the gastric lumen and gastric antral mucosal biopsy was obtained for histopathologic analysis and for H. pylori assessment. A couple biopsies were obtained at the gastroesophageal junction. Couple biopsies were obtained at the distal esophagus to rule out microscopic esophagitis. Endoscope was withdrawn. Findings:: Very small tiny sliding hiatal hernia. Otherwise unremarkable upper endoscopy Recommendations:: No obvious etiology for epigastric pain on upper endoscopy (Per Dr. Cornejo) After EGD showed no obvious etiology for epigastric pain, upon further assessment patient was still complaining of sharp substernal pain, with the risk factors of obesity, longtime smoker, and hyperlipidemia ordered a stress test. 01/30/20 Stress Test: Conclusion: Fixed defect involves the apex consistent with an area of infarction No reversible defects evident Normal EF 71% Electronically signed by : Dr. Kwasi Jones Will D/C home today: 1. We will discharge home today 2. We will discharge with Carafate, Prilosec 3. Continue recommendations from and [facility] appt 4. Follow-up in primary care in 1 week Objective Vital signs: Temp Pulse Resp BP Pulse Ox 98.2 F 86 18 167/84 H 99 01/30/20 08:00 01/30/20 08:00 01/30/20 08:00 01/30/20 08:00 01/30/20 08:00 no acute distress - *Routine HEENT Exam Head: Present: normocephalic ENT: Present: mucous membranes moist - *Routine Neck Exam Present: full ROM, trachea midline. Absent: JVD, tracheal deviation - *Routine Respiratory Exam Present: CTA bilaterally. Absent: accessory muscle use - *Routine Cardiovascular Exam Present: RRR - *Routine Abdominal Exam Present: soft, normoactive bowel sounds. Absent: te
== END 2020-01-30 16:18 | disposition home or self-care (01) ==
LOC: ER 10:29 → 2ND 12:01
PROVIDERS: Nurse Practitioner Family; Surgery; Admitting Provider Emergency Medicine; Emergency Provider Emergency Medicine; PCP Emergency Medicine; Visit Provider Emergency Medicine
PROC: 0DJ08ZZ Inspection of Upper Intestinal Tract, Via Natural or Artificial Opening Endoscopic (ICD-10-PCS; CPT 43235; principal; 2020-01-29 11:30)
DX: R10.9 Unspecified abdominal pain (principal); I10 Essential (primary) hypertension; E78.5 Hyperlipidemia, unspecified; Z87.891 Personal history of nicotine dependence; F31.9 Bipolar disorder, unspecified; Z88.0 Allergy status to penicillin; Z79.899 Other long term (current) drug therapy; Z79.82 Long term (current) use of aspirin; K21.9 Gastro-esophageal reflux disease without esophagitis; K44.9 Diaphragmatic hernia without obstruction or gangrene
CPT/HCPCS: 43239; 36415; 71045; 74176; 78452; 80048; 80053; 80178; 82150; 82962; 83690; 84484; 85025; 86328; 88305; 93005; 93017; 96365; 96375; 96376; 99284; A9502; G0378; J2405; J2785

== ENCOUNTER 2020-02-14 13:24 | Emergency (ER) | payer OTHER, SELFPAY ==
[2020-02-14 13:25] VITALS: BP 169/83; PULSE 87; RESP 18; TEMP 36.8; O2SAT 99; BMI 26.2
--- NOTE | 2020-02-14 13:47 | CT_ITS ---
PROCEDURE: CT ABDOMEN PELVIS WO CON CLINICAL INDICATION: EPIGASTRIC PAIN, N/V Nausea, vomiting, epigastric pain COMPARISON: CT ABDOMEN PELVIS WO CON from 01/28/2020 TECHNIQUE: Axial images obtained with sagittal and coronal reformats. All CT scans at the facility use one or more dose reduction, viz: automated exposure control, ma/kV adjustment per patient size (including targeted exams where dose is matched to indication, i.e. head), or iterative reconstruction technique. FINDINGS: LOWER THORAX: There are atelectatic or fibrotic changes in the right middle lobe ABDOMEN & PELVIS: Post cholecystectomy. The liver, spleen, adrenal glands, and pancreas have an unremarkable unenhanced CT appearance. No renal or ureteral calculi. No hydronephrosis. No intestinal obstruction or free air. The appendix is not clearly delineated. No evidence of appendicitis. There is thickening of the wall of the cecum, ascending colon, splenic flexure, descending colon, and sigmoid colon at the rectosigmoid region. Colitis is considered. There has been some improvement in the thickening of the mid aspect of the transverse colon. There is submucosal fat deposition within the colon. This may be seen as sequela from prior infectious/inflammatory process or increased body fat content.. No intestinal obstruction or free air. No abnormal fluid collection. There has been a prior hysterectomy. The there is a small umbilical hernia which contains fat. No acute bony findings. IMPRESSION: Persistent thickening the mucosa of the large bowel. This is somewhat improved in the transverse colon region. Colitis is a consideration. No new findings apparent Dictated by: Kwasi Jones MD 02/14/2020 14:27 Electronically signed by Kwasi Jones MD in [place] 02/14/2020 14:27
[2020-02-14 14:10] LABS: Basophils % 0.5 % (0.1-2.0); Chloride 105 mmol/L (98-107); Eosinophils # 0.2 K/mm3 (0.0-0.4); Eosinophils % 2.2 % (0.1-12.0); Hematocrit 42.2 % (37.0-47.0); Hemoglobin 14.1 g/dL (12.2-16.2); Lymphocytes # 1.7 K/mm3 (0.7-4.5); Lymphocytes % 23.1 % (10-50); Mean Corpuscular HGB Conc 33.4 g/dL (31.8-35.4); Mean Corpuscular Hemoglobin 29.2 pg (27.0-31.2); Mean Corpuscular Volume 87.5 fl (81-99); Mean Platelet Volume 7.6 fl (7.4-10.4); Monocytes # 0.4 K/mm3 (0.1-1.0); Monocytes % 4.8 % (1.7-9.3); Neutrophils # 5.2 K/mm3 (1.8-7.8); Neutrophils % 69.3 % (37.0-80.0); Platelet Count 424 K/mm3 (142-424); Potassium 4.2 mmoL/L (3.5-5.1); Red Blood Count 4.82 M/mm3 (4.20-5.40); Red Cell Distribution Width 13.3 % (11.5-17.5); Sodium 138 mmol/L (136-145); White Blood Count 7.5 K/mm3 (4.8-10.8)
[2020-02-14 14:13] LABS: Alanine Aminotransferase 31 U/L (12-78); Albumin/Globulin Ratio 1.5 (1.1-1.8); Alkaline Phosphatase 113 U/L (38-126); Anion Gap 14.2 mEq/L (5-15); Aspartate Amino Transferase 42 U/L (14-36); Bilirubin,Total 0.7 mg/dl (0.2-1.3); Blood Urea Nitrogen 9 mg/dl (7-17); Carbon Dioxide 23 mmol/L (22.0-30.0); Creatinine Clearance Estimated 80 mL/min (50-200); Estimated Glomerular Filt Rate 85 ml/min (>60); GFR (African American) 103 ML/MIN (>60); Globulin 3.3 g/dL (1.3-3.2); Total Protein,Serum 8.3 g/dl (6.3-8.2)
[2020-02-14 14:14] LABS: Calcium 10.7 mg/dl (8.4-10.2); Glucose 106 mg/dl (74-100)
--- NOTE | 2020-02-14 14:57 | HMH.EDABDPAI ---
ED Disposition Clinical Impression: GERD (gastroesophageal reflux disease) Disposition: Home, Self-Care Condition on Discharge: Good Instructions: DI for Acute Abdomen Prescriptions: Clarithromycin [Biaxin 500mg Tablet] 500 mg PO BID 10 Days #20 tab Transmission Status: Pending to [facility] Cefdinir [Omnicef 300mg Capsule] 300 mg PO BID #20 cap Transmission Status: Pending to [facility] Pantoprazole Sodium [Protonix 40mg tablet] 40 mg PO DAILY 30 Days #30 tab Transmission Status: Pending to [facility] Referrals: Lokesh Amato MD [Primary Care Provider] - - Critical Care Critical Care Time: No Attestation: On 02/14/20, the high probability of a clinically significant, sudden or life threatening deterioration of the following system(s) required my full and direct attention, intervention and personal management. The time I documented below is in addition to time spent performing reported procedures but includes the following listed in this critical care notation. Medical Decision Making - Medical Records Medical records reviewed: Yes: I reviewed the patient's medical records. - Jd Inquiry Pt receiving controlled substance: No Vital Signs: 02/14/20 13:25 Temperature 98.3 F Temperature Source Oral Pulse Rate [Right Radial] 87 Respiratory Rate 18 Blood Pressure [Right Arm] 169/83 H Blood Pressure Mean [Right Arm] 111 Blood Pressure Source [Right Arm] Automatic Cuff Blood Pressure Position [Right Arm] Sitting 02 Sat by Pulse Oximetry 99 Oxygen Delivery Method Room Air - Lab Data Lab results reviewed: Yes: I reviewed the patient's lab results. Lab Results 02/14/20 13:50: WBC 7.5, RBC 4.82, Hgb 14.1, Hct 42.2, MCV 87.5, MCH 29.2, MCHC 33.4, RDW 13.3, Plt Count 424, MPV 7.6, Neut % (Auto) 69.3, Lymph % (Auto) 23.1, [place] % (Auto) 4.8, Eos % (Auto) 2.2, Baso % (Auto) 0.5, Neut # (Auto) 5.2, Lymph # (Auto) 1.7, [place] # (Auto) 0.4, Eos # (Auto) 0.2, Baso # (Auto) 0.0 02/14/20 13:50: Sodium 138, Potassium 4.2, Chloride 105, Carbon Dioxide 23, Anion Gap 14.2, BUN 9, Creatinine 0.70, Estimated Creat Clear 80, Estimated GFR 85, Est GFR ( Amer) 103, Glucose 106 H, Calcium 10.7 H, Total Bilirubin 0.7, AST 42 H, ALT 31, Alkaline Phosphatase 113, Total Protein 8.3 H, Albumin 5.0, Globulin 3.3 H, Albumin/Globulin Ratio 1.5 Result diagrams: 02/14/20 13:50 02/14/20 13:50 Orders (Tests/Meds): ED MEDICATIONS Discontinued Medications Generic Name Dose Route Start Last Admin Trade Name Freq PRN Reason Stop Dose Admin Belladonna Alkaloids 60 ml 02/14/20 13:47 02/14/20 13:51 Gi Cocktail 60ml Udc PO 02/14/20 13:48 60 ml ONCE ONE Administration - CT Data CT Scan: Abdomen, Pelvis Time Received: 14:[address] Reviewed: Yes: I have viewed the radiologist's interpretation Preliminary Findings: Normal/NAD Abdominal Pain HPI - General Chief Complaint: Abdominal Pain Stated Complaint: stomach pain Time Seen by Provider: 02/14/20 13:34 Mode of Arrival: Ambulatory Source of Information: Patient Limitations: No Limitations Description of Symptoms (Recalled from ER Triage Doc. by RN): PT C/O EPIGASTRIC PAIN, N/V. PT ADVISES THAT SHE WAS RECENTLY HOSPITALIZED FOR THIS SAME ISSUE - History of Present Illness HPI narrative: 59-year-old female presents the ED with epigastric pain. She states she was admitted for this about 10 days ago and subsequently she had an EGD done that showed some mild gastritis no other symptoms. She states that the pains been on and off since then and she is hurting today in the epigastrium nausea with no vomiting. Patient denies any fever shakes or chills. Patient denies any cough or shortness of breath patient does state the pain is a burning sensation and pressure-like sensation in the upper Epigastrium and she rates it 6 out of 10 on a scale of 0-10. - Related Data Home Medications Medication Instructions Recorded
[2020-02-14 16:07] VITALS: BP 169/83; PULSE 87; RESP 18; TEMP 36.8; O2SAT 99
== END 2020-02-14 16:09 | disposition home or self-care (01) ==
PROVIDERS: Emergency Provider Family Medicine; PCP Emergency Medicine
DX: K21.9 Gastro-esophageal reflux disease without esophagitis (principal); F41.8 Other specified anxiety disorders; E78.5 Hyperlipidemia, unspecified; I10 Essential (primary) hypertension; Z79.899 Other long term (current) drug therapy; Z87.891 Personal history of nicotine dependence; Z90.49 Acquired absence of other specified parts of digestive tract; Z90.79 Acquired absence of other genital organ(s); Z88.0 Allergy status to penicillin
CPT/HCPCS: 74176; 80053; 85025; 99283

== ENCOUNTER 2020-04-16 10:31 | Emergency (ER) | payer OTHER, SELFPAY ==
[2020-04-16 10:43] VITALS: BP 163/75; PULSE 81; RESP 17; TEMP 37.1; O2SAT 98; BMI 26.0
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
--- NOTE | 2020-04-16 10:47 | XR_ITS ---
PROCEDURE: XR CHEST 2V CLINICAL HISTORY: ams Shortness of breath COMPARISON: CR CXR CHEST(2 VIEWS-NOT PORTABLE) from 04/22/[address] CHEST W/ CONTRAST from 06/23/2017 CR XR CHEST PORTABLE from 01/28/2020 FINDINGS: The cardiomediastinal silhouette and pulmonary vascularity are within normal limits. The lungs are clear without infiltrates, suspicious nodules, or pleural effusions. No acute bony abnormalities. IMPRESSION: No acute findings. Dictated by: Kwasi Jones MD 04/16/2020 11:11 Kwasi Jones MD in [place] 04/16/2020 11:11
--- NOTE | 2020-04-16 10:58 | PC.NURSE ---
pt to xray
--- NOTE | 2020-04-16 10:58 | PC.NURSE ---
pt going to ct and xray
[2020-04-16 11:04] LABS: Microscopic, Urine URINE MICROSCOPIC (MICROSCOPIC)
[2020-04-16 11:06] LABS: Basophils # 0.1 K/mm3 (0-0.2); Basophils % 1.2 % (0.1-2.0); Eosinophils # 0.2 K/mm3 (0.0-0.4); Eosinophils % 3.9 % (0.1-12.0); Hematocrit 42.7 % (37.0-47.0); Hemoglobin 14.7 g/dL (12.2-16.2); Lymphocytes # 1.7 K/mm3 (0.7-4.5); Lymphocytes % 26.7 % (10-50); Mean Corpuscular HGB Conc 34.5 g/dL (31.8-35.4); Mean Corpuscular Hemoglobin 29.7 pg (27.0-31.2); Mean Corpuscular Volume 86.3 fl (81-99); Mean Platelet Volume 7.8 fl (7.4-10.4); Monocytes # 0.3 K/mm3 (0.1-1.0); Neutrophils % 64.2 % (37.0-80.0); Platelet Count 438 K/mm3 (142-424); Red Blood Count 4.95 M/mm3 (4.20-5.40); Red Cell Distribution Width 13.8 % (11.5-17.5); White Blood Count 6.2 K/mm3 (4.8-10.8)
[2020-04-16 11:06] LABS: Appearance,Urine CLEAR (Clear); Blood, Urine TRACE-I (Negative); Color,Urine YELLOW (Yellow); Glucose,Urine (UA) Negative (Negative); Ketones,Urine Negative (Negative); Leukocyte Esterase,Urine Negative (Negative); Nitrate,Urine Negative (Negative); Protein,Urine Negative (Negative); Specific Gravity, Urine 1.025 (1.005-1.030); Urobilinogen,Urine 0.2 EU/dl (0.2)
[2020-04-16 11:08] LABS: Bilirubin,Urine 1+ (Negative)
[2020-04-16 11:12] LABS: Chloride 106 mmol/L (98-107); Potassium 4.1 mmoL/L (3.5-5.1); Sodium 140 mmol/L (136-145)
--- NOTE | 2020-04-16 11:13 | PC.NURSE ---
Pt back from CT and xray
[2020-04-16 11:14] LABS: Blood Urea Nitrogen 10 mg/dl (7-17); Creatinine Clearance Estimated 92 mL/min (50-200); Estimated Glomerular Filt Rate 102 ml/min (>60); GFR (African American) 123 ML/MIN (>60)
[2020-04-16 11:15] LABS: Alanine Aminotransferase 17 U/L (12-78); Albumin Level 4.7 g/dl (3.5-5.0); Albumin/Globulin Ratio 1.5 (1.1-1.8); Alkaline Phosphatase 116 U/L (38-126); Anion Gap 15.1 mEq/L (5-15); Aspartate Amino Transferase 30 U/L (14-36); Bilirubin,Total 0.6 mg/dl (0.2-1.3); Calcium 10.6 mg/dl (8.4-10.2); Carbon Dioxide 23 mmol/L (22.0-30.0); Globulin 3.2 g/dL (1.3-3.2); Glucose 110 mg/dl (74-100); Salicylate < 1.0 mg/dL (2.0-20.0); Total Protein,Serum 7.9 g/dl (6.3-8.2)
[2020-04-16 11:16] LABS: Acetaminophen < 10 ug/ml (10-30); Ethyl Alcohol < 10 mg/dl (0-10)
[2020-04-16 11:18] LABS: Benzodiazepines Screen,Urine Negative ng/ml (<200)
[2020-04-16 11:19] LABS: Amphetamine/Metha Screen,Urine Negative ng/ml (<1000)
[2020-04-16 11:20] LABS: Barbiturates Screen,Urine Negative ng/ml (<200); Cannabinoid Screen,Urine Positive ng/ml (<50)
[2020-04-16 11:21] LABS: Cocaine Screen,Urine Negative ng/ml (<300)
--- NOTE | 2020-04-16 11:21 | HMH.EDAMS ---
ED Disposition Clinical Impression: Bipolar 1 disorder Disposition: Home, Self-Care Condition on Discharge: Fair Instructions: DI for Altered Mental Status Additional Instructions: states that patient had her bipolar meds and depression meds decreased significantly approx 3 months ago. states that since she has been having uncontrollable crying and confusion that has continued to progress. tried to see psychiatric nurse balaji but as unable to get in today. pt only c/o headache at this time. We have reviewed her labs and see no acute changes; CBC CMP UA and urine drug screen are normal; lithium level has been ordered but is not back as it is a send out CT of the head is normal with no acute changes chest x-ray shows no acute changes, I have spoken to nurse practitioner Balaji about the patient and informed her of the findings patient does not seem to have any acute problems at this time and she is not suicidal the plan is to discharge her home. Balaji will see her in a week; We are giving her shot of Toradol for her headache no other changes are deemed necessary at this time Referrals: Lokesh Amato MD [Primary Care Provider] - Time of Disposition: 11:58 - Critical Care Critical Care Time: No Attestation: On 04/16/20, the high probability of a clinically significant, sudden or life threatening deterioration of the following system(s) required my full and direct attention, intervention and personal management. The time I documented below is in addition to time spent performing reported procedures but includes the following listed in this critical care notation. Medical Decision Making - Medical Records Medical records reviewed: Yes: I reviewed the patient's medical records. - Jd Inquiry Pt receiving controlled substance: No Vital Signs: 04/16/20 10:43 Temperature 98.8 F Temperature Source Oral Pulse Rate [Right Radial] 81 Respiratory Rate 17 Blood Pressure [Right Arm] 163/75 H Blood Pressure Mean [Right Arm] 104 02 Sat by Pulse Oximetry 98 Oxygen Delivery Method Room Air - Lab Data Lab results reviewed: Yes: I reviewed the patient's lab results. Lab Results 04/16/20 10:55: WBC 6.2, RBC 4.95, Hgb 14.7, Hct 42.7, MCV 86.3, MCH 29.7, MCHC 34.5, RDW 13.8, Plt Count 438 H, MPV 7.8, Neut % (Auto) 64.2, Lymph % (Auto) 26.7, Osborne % (Auto) 4.0, Eos % (Auto) 3.9, Baso % (Auto) 1.2, Neut # (Auto) 4.0, Lymph # (Auto) 1.7, Osborne # (Auto) 0.3, Eos # (Auto) 0.2, Baso # (Auto) 0.1 04/16/20 10:55: Sodium 140, Potassium 4.1, Chloride 106, Carbon Dioxide 23, Anion Gap 15.1 H, BUN 10, Creatinine 0.60, Estimated Creat Clear 92, Estimated GFR 102, Est GFR ( Amer) 123, Glucose 110 H, Calcium 10.6 H, Total Bilirubin 0.6, AST 30, ALT 17, Alkaline Phosphatase 116, Total Protein 7.9, Albumin 4.7, Globulin 3.2, Albumin/Globulin Ratio 1.5, Salicylates < 1.0 L, Acetaminophen < 10 L 04/16/20 10:55: Plasma/Serum Alcohol < 10 04/16/20 11:00: Urine Color Yellow, Urine Appearance Clear, Urine pH 6.0, Ur Specific Bovina 1.025, Urine Protein Negative, Urine Glucose (UA) Negative, Urine Ketones Negative, Urine Blood Trace-i, Urine Nitrate Negative, Urine Bilirubin 1+ A, Urine Urobilinogen 0.2, Ur Leukocyte Esterase Negative, Urine RBC Occasional, Urine WBC 3-5, Ur Squamous Epith Cells Occasional 04/16/20 11:00: Urine Opiates Screen Negative, Urine Methadone Screen Negative, Ur Barbituates Screen Negative, Ur Phencyclidine Scrn Negative, Ur Amphetamines Screen Negative, U Benzodiazepines Scrn Negative, Urine Cocaine Screen Negative, U Marijuana (THC) Screen Positive H Result diagrams: 04/16/20 10:55 04/16/20 10:55 Orders (Tests/Meds): ORDERS Category Date Time Status [place] (Eskalith(R)) Stat Lab 04/16/20 10:55 Received Altered Mental Status HPI - General Chief Complaint: Altered Mental Status Stated Complaint: AMS Time Seen by Provider: 04/16/20 11:12 Mode of Arrival: Ambulatory Source of Information: [facility]
[2020-04-16 11:22] LABS: Methadone Screen,Urine Negative ng/ml (<300); Opiate Screen,Urine Negative ng/ml (<300)
[2020-04-16 11:23] LABS: Phencyclidine Screen,Urine Negative ng/ml (<25)
[2020-04-16 11:27] LABS: RBC,Urine Occasional #/hpf (0-3); Squamous Epithelial Cell,Urine Occasional #/hpf (0-5)
--- NOTE | 2020-04-16 11:34 | PC.NURSE ---
Called specialty clinic for dr Mirza to talk to Mary Kay Gilliland, she is to call back
--- NOTE | 2020-04-16 11:43 | PC.NURSE ---
KATYA MADRIGAL speaking with PAWAN Chandra
[2020-04-16 12:12] VITALS: BP 138/79; PULSE 79; RESP 17; TEMP 37.1; O2SAT 99
[2020-04-17 12:24] LABS: Lithium (Eskalith(R)) 0.8 mmol/L (0.6-1.2)
== END 2020-04-16 12:12 | disposition home or self-care (01) ==
PROVIDERS: Emergency Provider Emergency Medicine; PCP Emergency Medicine
DX: F31.9 Bipolar disorder, unspecified (principal); F33.1 Major depressive disorder, recurrent, moderate; K21.9 Gastro-esophageal reflux disease without esophagitis; I10 Essential (primary) hypertension; E78.5 Hyperlipidemia, unspecified; F12.10 Cannabis abuse, uncomplicated; Z87.891 Personal history of nicotine dependence; Z88.0 Allergy status to penicillin; Z79.899 Other long term (current) drug therapy
CPT/HCPCS: 70450; 71046; 80053; 80178; 80305; 80329; 81001; 85025; 96374; 99283

== ENCOUNTER → 2020-06-20 12:12 | Outpatient (CLI) | payer OTHER, SELFPAY ==
[2020-06-20 13:09] LABS: Basophils # 0.1 K/mm3 (0-0.2); Basophils % 0.9 % (0.1-2.0); Eosinophils # 0.3 K/mm3 (0.0-0.4); Eosinophils % 5.2 % (0.1-12.0); Hematocrit 44.6 % (37.0-47.0); Hemoglobin 14.5 g/dL (12.2-16.2); Lymphocytes # 1.6 K/mm3 (0.7-4.5); Lymphocytes % 28.8 % (10-50); Mean Corpuscular HGB Conc 32.5 g/dL (31.8-35.4); Mean Corpuscular Hemoglobin 28.6 pg (27.0-31.2); Mean Corpuscular Volume 87.9 fl (81-99); Mean Platelet Volume 8.1 fl (7.4-10.4); Monocytes # 0.3 K/mm3 (0.1-1.0); Monocytes % 5.2 % (1.7-9.3); Neutrophils # 3.4 K/mm3 (1.8-7.8); Neutrophils % 59.9 % (37.0-80.0); Platelet Count 493 K/mm3 (142-424); Red Blood Count 5.07 M/mm3 (4.20-5.40); Red Cell Distribution Width 13.7 % (11.5-17.5); White Blood Count 5.7 K/mm3 (4.8-10.8)
[2020-06-20 14:13] LABS: Alanine Aminotransferase 12 U/L (12-78); Albumin Level 4.7 g/dl (3.5-5.0); Albumin/Globulin Ratio 1.6 (1.1-1.8); Alkaline Phosphatase 147 U/L (38-126); Aspartate Amino Transferase 25 U/L (14-36); Bilirubin,Total 0.4 mg/dl (0.2-1.3); Blood Urea Nitrogen 11 mg/dl (7-17); Calcium 10.8 mg/dl (8.4-10.2); Carbon Dioxide 28 mmol/L (22.0-30.0); Chloride 103 mmol/L (98-107); Estimated Glomerular Filt Rate 85 ml/min (>60); GFR (African American) 103 ML/MIN (>60); Glucose 85 mg/dl (74-100); Sodium 142 mmol/L (136-145); Total Protein,Serum 7.7 g/dl (6.3-8.2)
== END ==
PROVIDERS: Visit Provider Internal Medicine Medical Oncology
DX: R10.9 Unspecified abdominal pain (principal)
CPT/HCPCS: 36415; 80053; 85025

== ENCOUNTER → 2020-06-26 09:04 | Outpatient (CLI) | payer OTHER, SELFPAY ==
--- NOTE | 2020-06-26 09:07 | MM_ITS ---
PROCEDURE: MM DIG SCREENING MAMM BI W/CAD Digital Breast Tomosynthesis Included CLINICAL INDICATION: SCREENING There is no personal or family history of breast cancer. There has been a previous biopsy right breast for benign disease. COMPARISON: MG MM MAMMO DIGITAL SCREENING W CAD BILAT from 05/16/2017 MG MM MAMMO DIGITAL SCREENING W CAD BILAT from 06/02/2018 MG MM MAMMO DIGITAL STEPHANIE SCREEN BILAT from 06/11/2019 TECHNIQUE: Standard CC and MLO images and 3D Tomosynthesis was obtained. R2 CAD reviewed. FINDINGS: Moderate fibroglandular densities are seen in the central portions of both breasts. There is a biopsy clip right breast. There is a stable there is no suspicious lesion and no suspicious microcalcifications. Asymmetric benign-appearing density just superior to the nipple right breast. IMPRESSION: Moderate breast density with no suspicious lesions seen BI-RAD Category: 2 Benign Finding(s) FOLLOW-UP: 1YR 1 Year Follow-up (A letter has been sent to the patient regarding results of the study.) Dictated by: Dr. Rich Deng MD 07/06/2020 08:03 Dr. Rich Deng MD in [place] 07/06/2020 08:03
== END ==
PROVIDERS: PCP Emergency Medicine; Visit Provider Internal Medicine Medical Oncology
DX: Z12.31 Encounter for screening mammogram for malignant neoplasm of breast (principal)
CPT/HCPCS: 77063; 77067

== ENCOUNTER → 2020-08-26 18:02 | Outpatient (CLI) | payer OTHER, SELFPAY ==
[2020-08-26 19:03] LABS: Basophils # 0.1 K/mm3 (0-0.2); Basophils % 0.7 % (0.1-2.0); Eosinophils # 0.4 K/mm3 (0.0-0.4); Eosinophils % 4.8 % (0.1-12.0); Hematocrit 42.8 % (37.0-47.0); Hemoglobin 14.4 g/dL (12.2-16.2); Lymphocytes # 1.9 K/mm3 (0.7-4.5); Mean Corpuscular HGB Conc 33.6 g/dL (31.8-35.4); Mean Corpuscular Hemoglobin 29.8 pg (27.0-31.2); Mean Corpuscular Volume 88.8 fl (81-99); Mean Platelet Volume 8.6 fl (7.4-10.4); Monocytes # 0.4 K/mm3 (0.1-1.0); Monocytes % 5.6 % (1.7-9.3); Neutrophils # 4.5 K/mm3 (1.8-7.8); Neutrophils % 62.8 % (37.0-80.0); Platelet Count 474 K/mm3 (142-424); Red Blood Count 4.82 M/mm3 (4.20-5.40); White Blood Count 7.2 K/mm3 (4.8-10.8)
[2020-08-26 19:12] LABS: Alanine Aminotransferase 18 U/L (12-78); Albumin Level 4.7 g/dl (3.5-5.0); Albumin/Globulin Ratio 1.4 (1.1-1.8); Anion Gap 13.6 mEq/L (5-15); Aspartate Amino Transferase 31 U/L (14-36); Bilirubin,Total 0.5 mg/dl (0.2-1.3); Blood Urea Nitrogen 10 mg/dl (7-17); Calcium 10.8 mg/dl (8.4-10.2); Carbon Dioxide 26 mmol/L (22.0-30.0); Chloride 102 mmol/L (98-107); Estimated Glomerular Filt Rate 85 ml/min (>60); GFR (African American) 103 ML/MIN (>60); Globulin 3.4 g/dL (1.3-3.2); Glucose 98 mg/dl (74-100); Potassium 4.6 mmoL/L (3.5-5.1); Sodium 137 mmol/L (136-145); Total Protein,Serum 8.1 g/dl (6.3-8.2); Triglycerides 338 mg/dl (30-150)
[2020-08-26 19:13] LABS: Alkaline Phosphatase 127 U/L (38-126); Chol/HDL Ratio 5.9 (1-3.5); Cholesterol 188 mg/dl (140-200); HDL Cholesterol 32 mg/dl (40-60); VLDL Cholesterol 68 mg/dL (0-40)
[2020-08-26 19:23] LABS: Direct LDL Cholesterol 116.89 mg/dL (100-129)
[2020-08-26 19:29] LABS: 25-OH Vitamin D, Total 52.8 ng/mL (30-100)
[2020-08-26 19:30] LABS: T4 (Thyroxine) 6.6 ug/dl (5.53-11.0)
[2020-08-26 19:43] LABS: Thyroid Stimulating Hormone 2.66 uIU/mL (0.465-4.68)
[2020-08-28 11:49] LABS: Lithium (Eskalith(R)) 1.1 mmol/L (0.6-1.2)
== END ==
PROVIDERS: Visit Provider Nurse Practitioner Family
DX: F31.9 Bipolar disorder, unspecified (principal); R53.83 Other fatigue; Z79.899 Other long term (current) drug therapy
CPT/HCPCS: 80053; 80061; 80178; 82306; 84436; 84443; 85025

== ENCOUNTER → 2021-02-20 13:48 | Outpatient (CLI) | payer OTHER, SELFPAY ==
[2021-02-20 14:17] LABS: Anion Gap 15.9 mEq/L (5-15); Blood Urea Nitrogen 9 mg/dl (7-17); Calcium 10.1 mg/dl (8.4-10.2); Carbon Dioxide 21 mmol/L (22.0-30.0); Chloride 107 mmol/L (98-107); Estimated Glomerular Filt Rate 102 ml/min (>60); GFR (African American) 123 ML/MIN (>60); Glucose 53 mg/dl (74-100); Potassium 4.9 mmoL/L (3.5-5.1); Sodium 139 mmol/L (136-145)
[2021-02-22 07:08] LABS: Lithium (Eskalith(R)) 0.9 mmol/L (0.5-1.2)
== END ==
PROVIDERS: Visit Provider Emergency Medicine
DX: R53.83 Other fatigue (principal); R56.9 Unspecified convulsions; F31.9 Bipolar disorder, unspecified; Z51.81 Encounter for therapeutic drug level monitoring
CPT/HCPCS: 80048; 80178

== ENCOUNTER → 2021-07-07 15:36 | Outpatient (CLI) | payer OTHER, SELFPAY ==
--- NOTE | 2021-07-07 15:40 | MM_ITS ---
PROCEDURE: MM DIG SCREENING MAMM BI W/CAD Digital Breast Tomosynthesis Included CLINICAL INDICATION: SCREENING There is no personal or family history of breast cancer. COMPARISON: MG MM MAMMO DIGITAL STEPHANIE SCREEN BILAT from 06/11/2019 MG MM DIG SCREENING MAMM BI W/CAD from 06/26/2020 TECHNIQUE: Standard CC and MLO images and 3D Tomosynthesis was obtained. R2 CAD reviewed. FINDINGS: Scattered fibroglandular densities are seen in both breast and the findings are fairly symmetrical and bilateral. There is a biopsy clip right breast. There is no new or suspicious lesion in either breast and no suspicious microcalcifications. IMPRESSION: Fibrofatty parenchyma with no suspicious lesions seen BI-RAD Category: 2 Benign Finding(s) FOLLOW-UP: 1YR 1 Year Follow-up (A letter has been sent to the patient regarding results of the study.) Dictated by: Dr. Rich Deng MD 07/10/2021 14:46 Dr. Rich Deng MD in [place] 07/10/2021 14:46
== END ==
PROVIDERS: PCP Nurse Practitioner; Visit Provider Nurse Practitioner
DX: Z12.31 Encounter for screening mammogram for malignant neoplasm of breast (principal)
CPT/HCPCS: 77063; 77067

== ENCOUNTER 2021-11-01 09:34 | Emergency (ER) | payer OTHER, SELFPAY ==
[2021-11-01 09:35] VITALS: BP 172/94; PULSE 102; RESP 20; TEMP 36.8; O2SAT 97; BMI 37.1
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
--- NOTE | 2021-11-01 10:05 | HMH.EDUTC ---
[facility] [place] Impression: Shoulder pain, left Qualifiers: Chronicity: acute Qualified Code(s): M25.512 - Pain in left shoulder Disposition: Home, Self-Care Condition on Discharge: Good Instructions: DI for Shoulder Pain Additional Instructions: rest Ice with cold pack for 20 minutes remove may repeat for comfort every hour Ibuprofen every 6 hours as needed for pain or inflammation. If needs something more you can take Tylenol every 4 hours as needed as long as her primary care has told he was okayed for you to take both. If improving any do not need to follow-up you can bring begin exercising 2-3 weeks after injury. Follow-up immediately if new or worsening symptoms or no noticeable improvement over the next 3-5 days. call ortho tomorrow for appointment Prescriptions: predniSONE [Prednisone 20mg Tab] 20 mg PO BID #10 tab Prescription Printed Referrals: Krista Neville APRN [Primary Care Provider] - Robert Locke MD [Staff Physician] - Time of Disposition: 10:42 Medical Decision Making - Jd Inquiry Pt receiving controlled substance: No Vital Signs: 11/01/21 09:35 Temperature 98.2 F Temperature Source Oral Pulse Rate [Right Brachial] 102 H Respiratory Rate 20 Blood Pressure [Right Arm] 172/94 H Blood Pressure Mean [Right Arm] 120 Blood Pressure Source [Right Arm] Automatic Cuff Blood Pressure Position [Right Arm] Sitting 02 Sat by Pulse Oximetry 97 Oxygen Delivery Method Room Air [facility] [place] - General Chief complaint: Urgent [facility] Stated complaint: left arm/shoulder pain Time Seen by Provider: 11/01/21 10:05 Mode of Arrival: Ambulatory Source of Information: Patient Limitations: No Limitations Description of Symptoms (Recalled from Triage Doc. by RN): PATIENT C/O PAIN TO LEFT SHOULDER AND UPPER ARM. STATES FELL IN AUGUST AND IT HAS BEEN HURTING SINCE HEENT Symptoms (Recalled from RN notes): No Resp Symptoms (Recalled from RN notes): No Skin Symptoms (Recalled from RN notes): No MS Symptoms (Recalled from RN notes): Yes Functional Status (Recalled from RN notes): WNL - History of Present Illness Provider Complaint: 60 yr old female presents for left shoulder pain. pt states she fell in aug and its been hurting since then - Related Data Home Medications Medication Instructions Recorded Confirmed aspirin 81 mg tablet,delayed 81 mg PO DAILY tab 01/19/18 10/22/21 release Black Cohosh 40 mg PO DAILY 01/28/20 10/22/21 Previous Rx's Medication Instructions Recorded gemfibrozil 600 mg tablet See Rx Instructions .ROUTE 11/17/20 .COMPLEX #180 tab lithium carbonate 300 mg capsule 300 mg PO BID #60 cap 12/23/20 wsrxmxxxbiom-hpkrkhyl-rfimih tablet 1 tab PO DAILY #90 tab 12/23/20 loratadine 10 mg tablet See Rx Instructions .ROUTE 02/09/21 .COMPLEX #90 tab oxybutynin chloride 5 mg See Rx Instructions .ROUTE 02/09/21 tablet,extended release 24 hr .COMPLEX #90 tab venlafaxine 75 mg capsule,extended 75 mg PO DAILY #30 cap 04/22/21 release 24 hr bupropion HCl 150 mg 24 hr tablet, See Rx Instructions .ROUTE 07/06/21 extended release .COMPLEX #90 tab ropinirole 1 mg tablet 1 mg PO HS #30 tab 07/22/21 fluticasone propionate 50 See Rx Instructions .ROUTE 08/20/21 mcg/actuation nasal .COMPLEX #16 g spray,suspension predniSONE [Prednisone 20mg 20 mg PO BID #10 tab 11/01/21 Tab] Allergies Allergy/AdvReac Type Severity Reaction Status Date / Time Penicillins [PENICILLINS] Allergy Unknown Verified 10/22/21 14:05 - Worker's Comp Is this a Worker's Comp case?: No [facility] History - Hepatitis A Screen Drug use history?: No High risk sexual behaviors?: No History of sexually transmitted infection?: No Currently employed?: No Childcare worker?: No Do you have indoor plumbing?: Yes Do you have electricity?: Yes Attestation statement:: This patient has been screened for Hepatitis A risk factors. I have reviewed the patient's past medical h
[2021-11-01 10:45] VITALS: BP 172/94; PULSE 102; RESP 20; TEMP 36.8; O2SAT 97
== END 2021-11-01 10:49 | disposition home or self-care (01) ==
PROVIDERS: Emergency Provider Nurse Practitioner Family; PCP Nurse Practitioner
DX: M25.512 Pain in left shoulder (principal); M79.622 Pain in left upper arm; I10 Essential (primary) hypertension; E78.5 Hyperlipidemia, unspecified; G21.9 Secondary parkinsonism, unspecified; G40.909 Epilepsy, unspecified, not intractable, without status epilepticus; F31.9 Bipolar disorder, unspecified; F41.9 Anxiety disorder, unspecified; Z79.51 Long term (current) use of inhaled steroids; Z79.52 Long term (current) use of systemic steroids; Z79.82 Long term (current) use of aspirin; Z79.899 Other long term (current) drug therapy; Z88.0 Allergy status to penicillin; Z87.891 Personal history of nicotine dependence
CPT/HCPCS: 73030; 99213; G0463

== ENCOUNTER → 2021-12-11 10:19 | Outpatient (CLI) | payer OTHER, SELFPAY ==
[2021-12-11 10:54] LABS: Basophils # 0.1 K/mm3 (0-0.2); Basophils % 2.8 % (0.1-2.0); Eosinophils # 0.3 K/mm3 (0.0-0.4); Eosinophils % 6.8 % (0.1-12.0); Hematocrit 40.8 % (37.0-47.0); Lymphocytes # 1.2 K/mm3 (0.7-4.5); Lymphocytes % 24.3 % (10-50); Mean Corpuscular HGB Conc 31.9 g/dL (31.8-35.4); Mean Corpuscular Hemoglobin 29.7 pg (27.0-31.2); Monocytes # 0.2 K/mm3 (0.1-1.0); Monocytes % 4.5 % (1.7-9.3); Neutrophils # 3.1 K/mm3 (1.8-7.8); Neutrophils % 61.6 % (37.0-80.0); Platelet Count 390 K/mm3 (142-424); Red Blood Count 4.38 M/mm3 (4.20-5.40); Red Cell Distribution Width 13.6 % (11.5-17.5); White Blood Count 5.1 K/mm3 (4.8-10.8)
[2021-12-11 11:44] LABS: Anion Gap 11.4 mEq/L (5-15); Blood Urea Nitrogen 12 mg/dl (7-17); Calcium 9.6 mg/dl (8.4-10.2); Carbon Dioxide 23 mmol/L (22.0-30.0); Chloride 106 mmol/L (98-107); Estimated Glomerular Filt Rate 101 ml/min (>60); GFR (African American) 123 ML/MIN (>60); Glucose 275 mg/dl (74-100); Potassium 4.4 mmoL/L (3.5-5.1); Sodium 136 mmol/L (136-145)
== END ==
PROVIDERS: Visit Provider Internal Medicine Medical Oncology
DX: D64.9 Anemia, unspecified (principal)
CPT/HCPCS: 36415; 80048; 85025

== ENCOUNTER 2021-12-18 10:00 | Outpatient (RCR) | payer OTHER, SELFPAY ==
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
== END 2021-12-18 10:05 | disposition home or self-care (01) ==
LOC: OT 10:00
PROVIDERS: PCP Nurse Practitioner; Visit Provider Orthopaedic Surgery
DX: M25.512 Pain in left shoulder (principal)
CPT/HCPCS: 97010; 97014; 97110; 97140; 97166; G0283

== ENCOUNTER → 2022-06-16 13:18 | Outpatient (CLI) | payer OTHER, SELFPAY ==
--- NOTE | 2022-06-16 13:25 | MM_ITS ---
PROCEDURE INFORMATION: Exam: MG Bilateral Screening 3D Mammography Exam date and time: 06/16/2022 1:29 PM Age: 61 years old Clinical indication: Screening examination TECHNIQUE: Imaging protocol: Bilateral Screening tomosynthesis and 2D mammography including computer-aided detection (CAD) when performed. COMPARISON: 1. MG MM DIG SCREENING MAMM BI W/CAD 07/07/2021 3:44 PM 2. MG MM DIG SCREENING MAMM BI W/CAD 06/26/2020 9:20 AM FINDINGS: MAMMOGRAPHY: Breast composition: There are scattered areas of fibroglandular density. Mass: None. Architectural distortion: None. Calcifications: No suspicious calcifications. Asymmetric density: None. Skin thickening: None. Axillary adenopathy: None. IMPRESSION: No mammographic evidence of malignancy. Annual screening is recommended unless otherwise clinically indicated. ASSESSMENT: BI-RADS Category 1: Negative
== END ==
PROVIDERS: PCP Nurse Practitioner; Visit Provider Nurse Practitioner
DX: Z12.31 Encounter for screening mammogram for malignant neoplasm of breast (principal)
CPT/HCPCS: 77063; 77067

== ENCOUNTER → 2023-06-20 15:00 | Outpatient (CLI) | payer OTHER, SELFPAY ==
--- NOTE | 2023-06-20 15:05 | MM_ITS ---
PROCEDURE INFORMATION: Exam: MG Bilateral Screening 3D Mammography Exam date and time: 06/20/2023 3:02 PM Age: 62 years old Clinical indication: Screening examination TECHNIQUE: Imaging protocol: Bilateral Screening tomosynthesis and 2D mammography including computer-aided detection (CAD) when performed. COMPARISON: 1. MG MM DIG SCREENING MAMM BI W/CAD 06/16/2022 1:29 PM 2. MG MM DIG SCREENING MAMM BI W/CAD 07/07/2021 3:44 PM FINDINGS: MAMMOGRAPHY: Breast composition: There are scattered areas of fibroglandular density. Mass: None. Architectural distortion: None. Calcifications: No suspicious calcifications. Asymmetric density: None. Skin thickening: None. Axillary adenopathy: None. IMPRESSION: No mammographic evidence of malignancy. Annual screening is recommended unless otherwise clinically indicated. ASSESSMENT: BI-RADS Category 1: Negative
== END ==
PROVIDERS: PCP Nurse Practitioner; Visit Provider Nurse Practitioner
DX: Z12.31 Encounter for screening mammogram for malignant neoplasm of breast (principal)
CPT/HCPCS: 77063; 77067

== ENCOUNTER 2024-08-19 10:54 | Emergency (ER) | payer OTHER, SELFPAY ==
[2024-08-19] VITALS (9 sets, daily range): BP systolic 152–208; BP diastolic 64–83; PULSE 77–88; RESP 16–20; TEMP 36.6–36.9; O2SAT 97–99; BMI 25.2
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
[2024-08-19] MEDS: PANTOPRAZOLE 40MG VIAL 40 MG IV (11:31)
[2024-08-19 11:41] LABS: Microscopic, Urine URINE MICROSCOPIC (MICROSCOPIC)
[2024-08-19 11:47] LABS: Albumin Level 5.3 g/dl (3.5-5.0); Chloride 106 mmol/L (98-107); Potassium 4.8 mmoL/L (3.5-5.1); Sodium 138 mmol/L (136-145)
[2024-08-19 11:49] LABS: Blood Urea Nitrogen 22 mg/dl (7-17); Creatinine Clearance Estimated 51 mL/min (50-200); Estimated Glomerular Filt Rate 63 ml/min (>60); GFR (African American) 76 ML/MIN (>60)
[2024-08-19 11:50] LABS: Alanine Aminotransferase 30 U/L (12-78); Albumin/Globulin Ratio 1.5 (1.1-1.8); Alkaline Phosphatase 192 U/L (38-126); Anion Gap 16.8 mEq/L (5-15); Aspartate Amino Transferase 45 U/L (14-36); Bilirubin,Total 0.9 mg/dl (0.2-1.3); Calcium 10.9 mg/dl (8.4-10.2); Carbon Dioxide 20 mmol/L (22.0-30.0); Globulin 3.6 g/dL (1.3-3.2); Glucose 119 mg/dl (74-100); Lipase 88 U/L (23-300); Magnesium 2.5 mg/dl (1.6-2.3); Total Protein,Serum 8.9 g/dl (6.3-8.2)
[2024-08-19 11:58] LABS: Blood, Urine Negative (Negative); Glucose,Urine (UA) Negative (Negative); Ketones,Urine 3+ (Negative); Leukocyte Esterase,Urine Negative (Negative); Nitrate,Urine Negative (Negative); PH,Urine 6.5 (5.0-8.5); Protein,Urine 1+ (Negative); Specific Gravity, Urine >= 1.030 (1.005-1.030); Urobilinogen,Urine 0.2 EU/dl (0.2)
[2024-08-19 11:59] LABS: Appearance,Urine Slightly Cloudy (Clear); Bilirubin,Urine 2+ (Negative); Color,Urine Dark Yellow (Yellow)
[2024-08-19 12:00] LABS: Acetaminophen < 10 ug/ml (10-30); Salicylate < 1.0 mg/dL (2.0-20.0)
[2024-08-19 12:02] LABS: Basophils % 0.3 % (0.1-2.0); Eosinophils % 0.2 % (0.1-12.0); Hematocrit 46.9 % (37.0-47.0); Hemoglobin 15.2 g/dL (12.2-16.2); Lymphocytes # 1.1 K/mm3 (0.7-4.5); Lymphocytes % 7.9 % (10-50); Mean Corpuscular HGB Conc 32.4 g/dL (31.8-35.4); Mean Corpuscular Hemoglobin 28.3 pg (27.0-31.2); Mean Corpuscular Volume 87.2 fl (81-99); Mean Platelet Volume 10.3 fl (7.4-10.4); Monocytes # 0.5 K/mm3 (0.1-1.0); Monocytes % 3.7 % (1.7-9.3); Neutrophils # 11.6 K/mm3 (1.8-7.8); Neutrophils % 87.4 % (37.0-80.0); Platelet Count 480 K/mm3 (142-424); Red Blood Count 5.38 M/mm3 (4.20-5.40); Red Cell Distribution Width 12.6 % (11.5-17.5); White Blood Count 13.2 K/mm3 (4.8-10.8)
[2024-08-19 12:03] LABS: MANUAL DIFFERENTIAL MANUAL DIFFERENTIAL (MANUAL DIFF)
[2024-08-19 12:21] LABS: Bacteria,Urine Trace /lpf; Hyaline Casts,Urine OCC #/lpf (0)
[2024-08-19 12:37] LABS: Lymphocytes % 14 % (10-50); Monocytes % 3 % (2-9); Neutrophils % 83 % (42-76); Total Cells Counted 100
[2024-08-19 12:38] LABS: Platelet Estimate Normal; RBC Morphology Normal
[2024-08-19 12:59] LABS: Barbiturates Screen,Urine Negative ng/ml (<200)
[2024-08-19 13:00] LABS: Amphetamine/Metha Screen,Urine Negative ng/ml (<1000); Benzodiazepines Screen,Urine Positive ng/ml (<200)
[2024-08-19 13:01] LABS: Cannabinoid Screen,Urine Positive ng/ml (<50)
[2024-08-19 13:02] LABS: Cocaine Screen,Urine Negative ng/ml (<300); Methadone Screen,Urine Negative ng/ml (<300)
[2024-08-19 13:03] LABS: Opiate Screen,Urine Negative ng/ml (<300)
[2024-08-19 13:04] LABS: Phencyclidine Screen,Urine Negative ng/ml (<25)
[2024-08-19 13:41] LABS: HIV Combo NEGATIVE (Negative)
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
[2024-08-20 10:08] LABS: HCV Ab Non Reactive (Non Reactive)
[2024-08-20 16:14] LABS: Lithium (Eskalith(R)) 1.9 mmol/L (0.5-1.2)
== END 2024-08-19 14:50 | disposition home or self-care (01) ==
PROVIDERS: Emergency Provider Student in an Organized Health Care Education/Training Program; PCP Nurse Practitioner
DX: R44.1 Visual hallucinations (principal); R44.3 Hallucinations, unspecified; R10.30 Lower abdominal pain, unspecified
CPT/HCPCS: 80053; 80178; 80307; 80329; 81001; 83690; 83735; 85007; 85025; 85027; 86803; 87389; 96374; 99283; G0480

== ENCOUNTER 2024-08-30 14:49 | Observation (INO) | payer OTHER, SELFPAY ==
[2024-08-30] VITALS (10 sets, daily range): BP systolic 150–184; BP diastolic 70–103; PULSE 80–96; RESP 14–18; TEMP 36.6–37.2; O2SAT 95–98; BMI 24.4; BMI 34.4
--- NOTE | 2024-08-30 15:05 | ECG_ITS ---
APPROVED REPORT Exam: Resting ECG HR:97 bpm ECG Measurements Heart Rate 97 AXES KS 142 P 46 QRSd 86 QRS 26 QT 343 T 93 QTc [address] depression and inversions in anterolateral leads without reciprocal change Electronically signed by : MAGALIE TRIVEDI, 08/30/2024 20:29:33
--- NOTE | 2024-08-30 15:06 | XR_ITS ---
FINAL REPORT CLINICAL HISTORY: Generalized weakness FINDINGS: A portable view of the chest is obtained. Cardiac and mediastinal silhouettes are normal. The lungs are clear. There is no pleural effusion or pneumothorax. IMPRESSION: No acute process on this portable exam. Reviewed, Interpreted and Dictated by Binta Gan MD Transcribed by Karin Barcenas Authenticated and [facility]
[2024-08-30 15:15] LABS: Basophils # 0.1 K/mm3 (0-0.2); Basophils % 0.5 % (0.1-2.0); Eosinophils # 0.1 K/mm3 (0.0-0.4); Eosinophils % 0.3 % (0.1-12.0); Hematocrit 52.3 % (37.0-47.0); Hemoglobin 17.3 g/dL (12.2-16.2); Lymphocytes # 2.1 K/mm3 (0.7-4.5); Lymphocytes % 8.9 % (10-50); Mean Corpuscular HGB Conc 33.1 g/dL (31.8-35.4); Mean Corpuscular Hemoglobin 28.5 pg (27.0-31.2); Mean Platelet Volume 10.8 fl (7.4-10.4); Monocytes # 1.4 K/mm3 (0.1-1.0); Monocytes % 5.7 % (1.7-9.3); Neutrophils # 19.8 K/mm3 (1.8-7.8); Neutrophils % 83.6 % (37.0-80.0); Platelet Count 461 K/mm3 (142-424); Red Blood Count 6.08 M/mm3 (4.20-5.40); Red Cell Distribution Width 12.6 % (11.5-17.5); White Blood Count 23.7 K/mm3 (4.8-10.8)
[2024-08-30] MEDS: LACTATED RINGERS 1000ML 1,000 ML 999 ML IV (15:18)
[2024-08-30 15:20] LABS: Albumin Level 4.4 g/dl (3.5-5.0); Chloride 98 mmol/L (98-107); Potassium 4.5 mmoL/L (3.5-5.1); Sodium 142 mmol/L (136-145)
[2024-08-30 15:23] LABS: Alanine Aminotransferase 124 U/L (12-78); Albumin/Globulin Ratio 1.2 (1.1-1.8); Alkaline Phosphatase 253 U/L (38-126); Anion Gap 20.5 mEq/L (5-15); Aspartate Amino Transferase 134 U/L (14-36); Bilirubin,Total 0.5 mg/dl (0.2-1.3); Blood Urea Nitrogen 24 mg/dl (7-17); Carbon Dioxide 28 mmol/L (22.0-30.0); Creatine Kinase 65 U/L (30-135); Creatinine Clearance Estimated 67 mL/min (50-200); Estimated Glomerular Filt Rate 72 ml/min (>60); GFR (African American) 87 ML/MIN (>60); Globulin 3.6 g/dL (1.3-3.2); MANUAL DIFFERENTIAL MANUAL DIFFERENTIAL (MANUAL DIFF)
--- NOTE | 2024-08-30 15:23 | ED_ITS ---
Discharge Plan Disposition Patient Disposition: Admitted Chief Complaint: Altered Mental Status Clinical Impressions Clinical Impression: Acute metabolic encephalopathy, Severe sepsis Discharge ED Provider: Jacob Hernandez General Adult HPI General Chief complaint: Altered Mental Status Stated complaint: dehydration, weakness, sent from [facility] Time Seen by Provider: 08/30/24 15:04 Mode of Arrival: Wheelchair Source of Information: Spouse Limitations: Altered Mental Status Description of Symptoms (Recalled from ER Triage Doc. by RN): pt is not eating,drinking for several days. bipolar. meds being adjusted History of Present Illness HPI narrative: Please note that above description of symptoms, in this electronic medical record under categorization of recalled from ER triage doctor by RN are reflective of an initial nursing assessment, however, is not reflective of my full history and physical exam that was personally taken and clarified. Consequentially, this preceding description of symptoms, which may include the patient's categorized chief complaint in the EMR, do not reflect my personal clinical impression, and the ultimate description of history of present illness and patient stated complaints should be deferred to this section of the note. Unless stated otherwise or congruent with this section of the note, additional signs, symptoms, or incongruence should be interpreted as inaccurate with my clinical impression. Related Data Home Medications ?Medication ?Instructions ?Recorded ?Confirmed aspirin 81 mg tablet,delayed 81 mg PO DAILY HEART HEALTH 01/19/18 12/17/21 release (Adult Low Dose Aspirin) black cohosh 40 mg tablet 40 mg PO DAILY Supplement 01/28/20 12/17/21 diazepam 5 mg tablet 5 mg PO DAILY 12/17/21 12/17/21 venlafaxine 150 mg 150 mg PO DAILY 12/17/21 12/17/21 capsule,extended release 24 hr Previous Rx's ?Medication ?Instructions ?Recorded gemfibrozil 600 mg tablet See Rx Instructions .Route 11/17/20 .COMPLEX #180 tabs lithium carbonate 300 mg capsule 300 mg PO BID PSYCH ISSUES #60 caps 12/23/20 bgpmeqqqqhla-ugbkqemf-jpgcih 1 tab PO DAILY #90 tabs 12/23/20 tablet ([employer] [facility]) loratadine 10 mg tablet See Rx Instructions .Route 02/09/21 .COMPLEX #90 tabs oxybutynin chloride 5 mg See Rx Instructions .Route 02/09/21 tablet,extended release 24 hr .COMPLEX #90 tabs bupropion HCl 150 mg 24 hr tablet, See Rx Instructions .Route 07/06/21 extended release .COMPLEX #90 tabs ropinirole 1 mg tablet 1 mg PO HS #30 tabs 07/22/21 fluticasone propionate 50 See Rx Instructions .Route 11/22/22 mcg/actuation nasal .COMPLEX #16 caps spray,suspension Allergies Allergy/AdvReac Type Severity Reaction Status Date / Time Penicillins (PENICILLINS) Allergy Unknown Verified 12/17/21 12:29 [facility] Disclaimer: The information contained in this section may have been updated after the patient was seen, as this information can be updated by other users. Social History Smoking Status: Never smoker alcohol intake: current alcohol intake frequency: holidays/special occasions only substance use type: marijuana current occupational status: disabled Travel in the last 8 weeks: None household members: spouse housing: house number of children: 0 caffeine: Yes Have you lived/traveled outside [place] in past 30 days?: No Contact w/someone who lives/traveled outside US past 30 days?: No Exposure to someone with infectious disease in past 14 days?: No Do you have a fever (greater than 100.4 F or 38 C)?: No Have you tested positive for COVID-19: No Exposed to someone with COVID-19 in past 14 days?: No Do you have a sore throat?: No Do you have a cough?: No Do you have any weakness?: Yes Do you have any diarrhea?: No Are you experiencing any unusual bleeding?: No Do you have any muscle aches/pain?: No Do you have any abdominal pain?: No Are you experiencing loss of taste or smell?: No Other Medical History Have you received the Flu Vaccine for this season: Yes Have you received the Pneumonia Vaccine: No ROS Obtained: Yes All systems reviewed & no additional complaints except as documented Physical Exam General General appearance: lethargic Head Head exam: atraumatic and normocephalic Eye Eye exam: Present normal appearance, PERRL and EOMI ENT ENT exam: Present mucous membranes dry Neck Neck exam: Present normal inspection, full ROM and trachea midline Respiratory Respiratory exam: Absent respiratory distress, wheezes, stridor, accessory muscle use or prolonged expiratory phase Cardiovascular Cardiovascular exam: Present other (Pulses equal symmetric in upper and lower extremities) Abdominal Exam Abdominal exam: Present soft; Absent distention, tenderness, guarding, rebound, rigidity or pulsatile mass Extremities Exam Extremities exam: Absent edema Neurological Exam Neurological exam: Absent alert or oriented X3 Skin Skin exam: Present warm and dry; Absent diaphoresis or erythema Medical Decision Making Medical Records Medical records reviewed: Yes I reviewed the patient's medical records. Screening: Per USPSTF and CDC recommendations, given the prevalence of disease in our region, it is our hospital?s policy to screen for HIV and viral Hepatitis for all patients aged 18 and over and those with ongoing risk factors. Jd Inquiry Pt receiving controlled substance: No Jd was queried for this patient: No Vital Signs: 08/30/24 14:50 08/30/24 15:30 08/30/24 16:00 Pulse Rate 92 H 87 Pulse Rate [Right] 96 H Respiratory Rate 16 16 17 Blood Pressure 175/90 H 162/82 H Blood Pressure [Right Arm] 174/103 H Blood Pressure Mean [Right Arm] 126 02 Sat by Pulse Oximetry 95 97 96 Oxygen Delivery Method Room Air Room Air 08/30/24 16:29 08/30/24 17:30 08/30/24 18:00 Pulse Rate 89 88 Pulse Rate [Right] Respiratory Rate 16 18 14 Blood Pressure 180/90 H 150/79 H 169/88 H Blood Pressure [Right Arm] Blood Pressure Mean [Right Arm] 02 Sat by Pulse Oximetry 98 Oxygen Delivery Method Room Air Room Air 08/30/24 18:30 Pulse Rate Pulse Rate [Right] Respiratory Rate 18 Blood Pressure 184/89 H Blood Pressure [Right Arm] Blood Pressure Mean [Right Arm] 02 Sat by Pulse Oximetry Oxygen Delivery Method Room Air Lab Data Lab Results 08/30/24 15:00: WBC 23.7 H*, RBC 6.08 H, Hgb 17.3 H, Hct 52.3 H, MCV 86.0, MCH 28.5, MCHC 33.1, RDW 12.6, Plt Count 461 H, MPV 10.8 H, Neut % (Auto) 83.6 H, L ymph % (Auto) 8.9 L, [place] % (Auto) 5.7, Eos % (Auto) 0.3, Baso % (Auto) 0.5, N eut # (Auto) 19.8 H, Lymph # (Auto) 2.1, [place] # (Auto) 1.4 H, Eos # (Auto) 0.1, Baso # (Auto) 0.1, Total Counted 100, Neutrophils % (Manual) 86 H, Lymphocytes % (Manual) 9 L, Monocytes % (Manual) 5, Platelet Estimate Slight increase, RBC Morphology Normal, PT 46.9 H, INR 4.90 H, APTT 54.1 H, Sodium 142, Potassium 4.5, Chloride 98, Carbon Dioxide 28, Anion Gap 20.5 H, BUN 24 H, Creatinine 0.80, Estimated Creat Clear 67, Estimated GFR 72, Est GFR ( Amer) 87, G lucose 135 H, Calcium 10.8 H, Magnesium 2.5 H, Total Bilirubin 0.5, AST 134 H, A LT 124 H, Alkaline Phosphatase 253 H, Total Creatine Kinase 65, Total Protein 8.0, Albumin 4.4, Globulin 3.6 H, Albumin/Globulin Ratio 1.2, Lipase 125, TSH 1.16, Thyroxine (T4) 8.3, Salicylates < 1.0 L, Acetaminophen < 10 L, Plasma/Serum Alcohol < 10 08/30/24 15:23: VBG pH 7.40, VBG pCO2 45.1, VBG pO2 50.9 H, VBG HCO3 27.0, VBG Total CO2 28.4 H, VBG O2 Saturation 85.5 H, VBG Base Excess 2.1, VBG Lactic Acid 5.4 H 08/30/24 16:15: Lactate 5.2 H 08/30/24 17:17: Urine Color Yellow, Urine Appearance Clear, Urine pH 7.0, Ur Specific [place] <= 1.005, Urine Protein Negative, Urine Glucose (UA) Negative, Urine Ketones Trace, Urine Blood 3+ A, Urine Nitrate Negative, Urine Bilirubin Negative, Urine Urobilinogen 0.2, Ur Leukocyte Esterase Negative, Urine RBC 10- 20, Urine WBC 3-5, Ur Squamous Epith Cells Occasional, Amorphous Sediment 1+, Urine Bacteria 1+, Urine Creatinine 37, Urine Sodium 10.0 L 08/30/24 18:30: Ammonia < 9 L 08/30/24 15:00 08/30/24 15:00 Orders (Tests/Meds): ED MEDICATIONS Generic Name Dose Route Start Last Admin Trade Name Freq PRN Reason Stop Dose Admin Miscellaneous 1 each 08/30/24 16:15 Vancomycin Consult Request NOTAPPLIC 09/29/24 16:14 CONSULT PHARMACY [facility] Discontinued Medications Generic Name Dose Route Start Last Admin Trade Name Chante PRN Reason Stop Dose Admin Sodium Chloride 1,000 mls @ 999 mls/hr 08/30/24 15:06 Sod Chlor 0.9% 1000ml Bag IV 08/30/24 16:06 .Q1H1M ONE Lactated Ringer's 1,000 mls @ 999 mls/hr 08/30/24 15:15 08/30/24 15:18 Lactated Ringer's 1000 Ml Bag IV 08/30/24 16:15 999 mls/hr .Q1H1M ONE Administration Lactated Ringer's 2,250 mls @ 1,125 mls/hr 08/30/24 16:01 08/30/24 18:45 Lactated Ringer's 1000 Ml Bag 30 ml/kg infuse over 2 hr (2250 ml) 08/30/24 18:00 1,125 mls/hr IV Administration .Q2H ONE Cefepime HCl 2 gm/ Sodium 100 mls @ 200 mls/hr 08/30/24 16:10 08/30/24 18:46 Chloride IV 08/30/24 16:39 200 mls/hr ONCE ONE Administration Metronidazole 500 mg in 100 mls @ 100 mls/hr 08/30/24 16:10 Flagyl 500mg/100ml Ivpb IV 08/30/24 17:09 ONCE ONE Vancomycin/PEG/NADA/Lysine/Water 1.25 gm in 250 mls @ 125 mls/hr 08/30/24 16:30 Vancomycin 1.25gm/250ml (Peg) Premix IV 08/30/24 18:29 ONCE ONE Iopamidol 80 ml 08/30/24 16:50 08/30/24 16:51 Iopamidol-370 (76%);100ml Bottle IV 08/30/24 16:51 80 ml ONCE ONE Administration Iopamidol 80 ml 08/30/24 16:52 08/30/24 16:53 Iopamidol-370 (76%);100ml Bottle IV 08/30/24 16:53 80 ml ONCE ONE Administration Sodium Chloride 10 ml 08/30/24 16:50 08/30/24 16:51 Sodium Chloride 0.9% 10ml Syr (Rad Only) IV 08/30/24 16:51 10 ml ONCE ONE Administration Sodium Chloride 50 ml 08/30/24 16:50 08/30/24 16:51 0.9 % Sodium Chloride 50 Ml Vial IV 08/30/24 16:51 50 ml ONCE ONE Administration Sodium Chloride 10 ml 08/30/24 16:52 08/30/24 16:52 Sodium Chloride 0.9% 10ml Syr (Rad Only) IV 08/30/24 16:53 10 ml ONCE ONE Administration Sodium Chloride 50 ml 08/30/24 16:52 08/30/24 16:52 0.9 % Sodium Chloride 50 Ml Vial IV 08/30/24 16:53 50 ml ONCE ONE Administration ORDERS Category Date Time Status CT angio abdomen pelvis Stat Cat Scan 08/30/24 16:[address] angio head Stat Cat Scan 08/30/24 16:[address] angio neck Stat Cat Scan 08/30/24 16:[address] head/brain wo con Stat Cat Scan 08/30/24 16:03 Completed CTA Chest [CT angio chest - dissection] Stat Cat Scan 08/30/24 16:06 Completed XR chest portable Stat Exams 08/30/24 15:06 Completed Acetaminophen Stat Lab 08/30/24 15:00 Completed Ammonia Stat Lab 08/30/24 18:30 Completed CK [Creatine Kinase] Stat Lab 08/30/24 15:00 Completed Complete Blood Count Auto Diff Stat Lab 08/30/24 15:00 Completed Comprehensive Metabolic Panel Stat Lab 08/30/24 15:00 Completed Creatinine,Urine Random Stat Lab 08/30/24 17:17 Completed Ethanol [Ethyl Alcohol] Stat Lab 08/30/24 15:00 Completed Lactic Acid Stat Lab 08/30/24 16:15 Completed Lipase Stat Lab 08/30/24 15:00 Completed [place] (Eskalith(R)) Stat Lab 08/30/24 15:00 Received Magnesium Stat Lab 08/30/24 15:00 Completed PT INR [Prothrombin Time INR] Stat Lab 08/30/24 15:00 Completed PTT [Activated Partial Thrombo Time] Stat Lab 08/30/24 15:00 Completed Salicylate Stat Lab 08/30/24 15:00 Completed Sodium,Urine Random Stat Lab 08/30/24 17:17 Completed T4 (Thyroxine) Stat Lab 08/30/24 15:00 Completed TSH [Thyroid Stimulating Hormone] Stat Lab 08/30/24 15:00 Completed UA [Urinalysis and Microscopic] Stat Lab 08/30/24 17:17 Completed Blood Culture Stat Micro 08/30/24 16:20 Received VBG [Venous Blood Gas] Stat RT 08/30/24 15:23 Completed Medical Decision Narrative: 63-year-old female of psychosis, bipolar disorder, headache, RLS, GERD, hypertension, hyperlipidemia presenting with altered mental status. Patient's providing all of her history. He states that she was taken off of her lithium after having toxic levels at the beginning of June. Since that time, it has been all downhill. Patient's states that she has been sleeping, losing weight, not eating or drinking, generally not interacting. Patient unable provide any history due to confusion. On arrival, patient clinically ill-appearing. Very dehydrated, dry mucous membranes, not oriented to place, time, situation. Pupils are 3 mm and reactive bilaterally. Lungs are clear bilaterally, cardiac exam without murmurs gallops or rubs. Abdomen is soft, nondistended, but patient does seem to have mild tenderness in left lower quadrant. No lower extremity swelling. Moving bilateral upper and lower extremities spontaneously. Patient placed on continuous cardiac monitoring and continuous pulse ox with initial blood pressure 174/103, heart rate 96, saturation 96% on room air. Independent interpretation of EKG shows sinus rhythm 97 bpm. Patient does have ST depressions and T wave inversions V2 through V6, 1 and aVL. No reciprocal elevations. CT 142, QRS 86, QTc 397. Patient was given sepsis bolus, empiric antibiotics for symptomatic management and correction of underlying abnormalities. Workup independently interpreted and significant for White count of nearly 24,000, elevated hemoglobin at 17 and platelet count 461 consistent with significant dehydration and hemoconcentration in the setting of what is likely overlapping sepsis. Patient's coags significant for INR of 4.9. Kidney function normal with creatinine 0.8 and BUN 24. VBG with pH 7.4/CO2 45/O2 51/bicarb 27. Anion gap of 20.5, lactate nearly 6. Other electrolytes normal. Regarding LFTs, total bili normal AST elevated 130, ALT elevated 120 and alkaline phosphatase 250. CK normal. Thyroid studies normal. Tox labs negative.. On independent interpretation of imaging, no intracranial hemorrhage, no evidence of intrathoracic or intra-abdominal injury/abnormality. See radiology read for full review of final results. Because patient has leukocytosis and lactate nearly 6, was given empiric antibiotics and sepsis bolus. On reevaluation, patient much more interactive, however still appears confused. 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 I contacted the hospitalist to discuss this case and both agreed on admission, of course, but underlying etiology still unknown. May be bacteremia. Elevated INR may be due to severe sepsis as well. Patient to be admitted for further definitive workup and management. Cloud Developer disclaimer Much of this encounter note is an electronic naphthol soaping machine operator spoken language to printed text. Electronic naphthol soaping machine operator of the spoken language may permit errors. Although I have reviewed the note, some errors may still exist. Critical Care Critical Care Time Critical Care Time: Yes (severe sepsis) Attestation: On 08/30/24, the high probability of a clinically significant, sudden or life threatening deterioration of the following system(s) required my full and direct attention, intervention and personal management. The time I documented below is in addition to time spent performing reported procedures but includes the following listed in this critical care notation. Total Time Total Critical Care Time: 45
[2024-08-30 15:24] LABS: Activated Partial Thrombo Time 54.1 seconds (22.8-30.6); Calcium 10.8 mg/dl (8.4-10.2); Glucose 135 mg/dl (74-100)
[2024-08-30 15:28] LABS: VBG Base Excess 2.1 mmol/L (-2.4-2.3); VBG Oxygen Saturation 85.5 % (50-70); VBG PCO2 45.1 mmol/L (35-51); VBG PO2 50.9 mmol/L (28-40); VBG Total CO2 28.4 mmol/L (23-27)
[2024-08-30 15:32] LABS: Lactate Venous 5.4 mmol/L (0.4-2.0)
[2024-08-30 15:34] LABS: Lipase 125 U/L (23-300); Magnesium 2.5 mg/dl (1.6-2.3)
[2024-08-30 15:35] LABS: Acetaminophen < 10 ug/ml (10-30); Salicylate < 1.0 mg/dL (2.0-20.0)
[2024-08-30 15:40] LABS: T4 (Thyroxine) 8.3 ug/dl (5.53-11.0)
--- NOTE | 2024-08-30 15:42 | PC.NURSE ---
CRITICAL PT/INR 46.9/4.90. PT NAME AND R/V DR TRIVEDI NOTIFIED
[2024-08-30 15:43] LABS: Prothrombin Time 46.9 seconds (10.1-12.5)
[2024-08-30 15:52] LABS: Ethyl Alcohol < 10 mg/dl (0-10)
[2024-08-30 15:54] LABS: Thyroid Stimulating Hormone 1.16 uIU/mL (0.465-4.68)
--- NOTE | 2024-08-30 16:03 | CT_ITS ---
PROCEDURE INFORMATION: Exam: CT Head Without Contrast Exam date and time: 08/30/2024 4:47 PM Age: 63 years old Clinical indication: Altered mental status/memory loss; Additional info: AMS TECHNIQUE: Imaging protocol: Computed tomography of the head without contrast. Radiation optimization: All CT scans at this facility use at least one of these dose optimization techniques: automated exposure control; mA and/or kV adjustment per patient size (includes targeted exams where dose is matched to clinical indication); or iterative reconstruction. COMPARISON: CT HEAD/BRAIN WO CON 04/16/2020 11:05 AM FINDINGS: Brain: Age-related volume loss. Decreased attenuation of the supratentorial white matter is likely secondary to chronic microvascular ischemia. No acute intracranial hemorrhage, midline shift or intracranial mass effect. Cerebral ventricles: Ventriculomegaly is commensurate for degree of volume loss. Paranasal sinuses: Visualized sinuses are unremarkable. No fluid levels. Mastoid air cells: Visualized mastoid air cells are well aerated. Bones: Unremarkable. No acute fracture. Soft tissues: There are several metallic foreign bodies involving the left posterior scalp measuring up to 4 mm. These are stable from prior examination. IMPRESSION: No acute intracranial abnormality.
--- NOTE | 2024-08-30 16:06 | CT_ITS ---
PROCEDURE INFORMATION: Exam: CTA Chest With Contrast Exam date and time: 08/30/2024 4:55 PM Age: 63 years old Clinical indication: Other: AMS; Additional info: AMS, failure to thrive, confusion TECHNIQUE: Imaging protocol: Computed tomographic angiography of the chest with contrast. Exam focused on the arteries. 3D rendering (Not supervised by radiologist): MIP and/or 3D reconstructed images were created by the technologist. Radiation optimization: All CT scans at this facility use at least one of these dose optimization techniques: automated exposure control; mA and/or kV adjustment per patient size (includes targeted exams where dose is matched to clinical indication); or iterative reconstruction. Contrast material: ISOVUE 370; Contrast volume: 160 ml; Contrast route: INTRAVENOUS (IV); COMPARISON: CR XR CHEST PORTABLE 08/30/2024 3:22 PM FINDINGS: Pulmonary arteries: Normal. No pulmonary emboli. Aorta: Mild atherosclerotic changes are seen within the thoracic aorta without evidence of aneurysm. No dissection. Lungs: Unremarkable. No consolidation. No masses. Pleural spaces: Unremarkable. No pneumothorax. No pleural effusion. Heart: Unremarkable. No cardiomegaly. No pericardial effusion. Lymph nodes: Unremarkable. No enlarged lymph nodes. Bones/joints: Unremarkable. No acute fracture. Soft tissues: Unremarkable. IMPRESSION: No acute findings.
--- NOTE | 2024-08-30 16:06 | CT_ITS ---
PROCEDURE INFORMATION: Exam: CTA Abdomen and Pelvis With Contrast Exam date and time: 08/30/2024 4:55 PM Age: 63 years old Clinical indication: Other: AMS; Additional info: AMS, failure to thrive, confusion, belly pain TECHNIQUE: Imaging protocol: Computed tomographic angiography of the abdomen and pelvis with contrast. Exam focused on the arteries. 3D rendering (Not supervised by radiologist): MIP and/or 3D reconstructed images were created by the technologist. Radiation optimization: All CT scans at this facility use at least one of these dose optimization techniques: automated exposure control; mA and/or kV adjustment per patient size (includes targeted exams where dose is matched to clinical indication); or iterative reconstruction. Contrast material: ISOVUE 370; Contrast volume: 160 ml; Contrast route: INTRAVENOUS (IV); COMPARISON: CT ABDOMEN PELVIS WO CON 02/14/2020 2:01 PM FINDINGS: Aorta: Mild atherosclerotic changes are seen within the abdominal aorta and branch vasculature without evidence of aneurysm. No dissection. Celiac trunk and mesenteric arteries: No occlusion or significant stenosis. Renal arteries: No occlusion or significant stenosis. Right iliac arteries: No occlusion or significant stenosis. Left iliac arteries: No occlusion or significant stenosis. Liver: No mass. Gallbladder and biliary ducts: Cholecystectomy. No ductal dilation. Pancreas: Unremarkable. No mass. No ductal dilation. Spleen: Unremarkable. No splenomegaly. Adrenal glands: Unremarkable. No mass. Kidneys and ureters: Unremarkable. No solid mass. No hydronephrosis. Stomach and bowel: Unremarkable. No obstruction. No mucosal thickening. Appendix: No evidence of appendicitis. Intraperitoneal space: Unremarkable. No free air. No significant fluid collection. Lymph nodes: Unremarkable. No enlarged lymph nodes. Urinary bladder: Unremarkable. No mass. Reproductive: Hysterectomy. Bones/joints: No acute fracture. Soft tissues: Unremarkable. IMPRESSION: No acute findings.
--- NOTE | 2024-08-30 16:07 | CT_ITS ---
PROCEDURE INFORMATION: Exam: CTA Head With Contrast, Arteriography Exam date and time: 08/30/2024 4:50 PM Age: 63 years old Clinical indication: Other: AMS; Additional info: AMS confusion, unable to perform nihss TECHNIQUE: Imaging protocol: Computed tomographic angiography of the head with contrast. Exam focused on the arteries. 3D rendering (Not supervised by radiologist): MIP and/or 3D reconstructed images were created by the technologist. Radiation optimization: All CT scans at this facility use at least one of these dose optimization techniques: automated exposure control; mA and/or kV adjustment per patient size (includes targeted exams where dose is matched to clinical indication); or iterative reconstruction. Contrast material: ISOVUE 370; Contrast volume: 160 ml; Contrast route: INTRAVENOUS (IV); COMPARISON: CT HEAD/BRAIN WO CON 08/30/2024 4:47 PM FINDINGS: ANTERIOR CIRCULATION: Right internal carotid artery: Intracranial segment is patent with no significant stenosis. No aneurysm. Right middle cerebral artery: No occlusion or significant stenosis. No aneurysm. Right anterior cerebral artery: No occlusion or significant stenosis. No aneurysm. Left internal carotid artery: Intracranial segment is patent with no significant stenosis. No aneurysm. Left middle cerebral artery: No occlusion or significant stenosis. No aneurysm. Left anterior cerebral artery: No occlusion or significant stenosis. No aneurysm. POSTERIOR CIRCULATION: Right vertebral artery: No occlusion or significant stenosis. No aneurysm. Left vertebral artery: No occlusion or significant stenosis. No aneurysm. Basilar artery: No occlusion or significant stenosis. No aneurysm. Right posterior cerebral artery: No occlusion or significant stenosis. No aneurysm. Left posterior cerebral artery: No occlusion or significant stenosis. No aneurysm. IMPRESSION: No hemodynamically significant stenosis or large vessel occlusion.
--- NOTE | 2024-08-30 16:07 | CT_ITS ---
PROCEDURE INFORMATION: Exam: CTA Neck With Contrast Exam date and time: 08/30/2024 4:50 PM Age: 63 years old Clinical indication: Other: AMS; Additional info: AMS confusion, unable to perform nihss TECHNIQUE: Imaging protocol: Computed tomographic angiography of the neck with contrast. Exam focused on the cervical segments of the vasculature. 3D rendering (Not supervised by radiologist): MIP and/or 3D reconstructed images were created by the technologist. Radiation optimization: All CT scans at this facility use at least one of these dose optimization techniques: automated exposure control; mA and/or kV adjustment per patient size (includes targeted exams where dose is matched to clinical indication); or iterative reconstruction. Contrast material: ISOVUE 370; Contrast volume: 160 ml; Contrast route: INTRAVENOUS (IV); COMPARISON: CT ANGIO HEAD 08/30/2024 4:50 PM FINDINGS: Right common carotid artery: No stenosis. No dissection or occlusion. Right internal carotid artery: No stenosis of the extracranial segment. No dissection or occlusion. Right external carotid artery: No occlusion or stenosis of the origin. Left common carotid artery: Mild atheromatous irregularity involving the left common carotid artery without hemodynamically significant stenosis. Left internal carotid artery: Mild atheromatous irregularity of the proximal left ICA without hemodynamically significant stenosis. Left external carotid artery: No occlusion or stenosis of the origin. Right vertebral artery: No stenosis. No dissection or occlusion. Left vertebral artery: No stenosis. No dissection or occlusion. Aorta: Aortic calcification. Soft tissues: Normal. No significant soft tissue swelling. Bones/joints: Degenerative change involving the spine. IMPRESSION: No hemodynamically significant stenosis. REFERENCES: NASCET CRITERIA. The degree of stenosis in the cervical segment of the internal carotid artery is based on NASCET criteria. Normal is no stenosis. Mild is less than 50% stenosis. Moderate is 50-69% stenosis. Severe is 70% to 99% stenosis. Total occlusion is no detectable patent lumen.
[2024-08-30 16:43] LABS: Lactic Acid 5.2 mmol/L (0.7-2.1)
--- NOTE | 2024-08-30 16:43 | PC.NURSE ---
Pt going to CT
[2024-08-30] MEDS: SODIUM CHLORIDE 0.9% 10ML SYR (RAD ONLY) 10 ML IV ×2 (16:51→16:52)
[2024-08-30] MEDS: IOPAMIDOL-370 (76%);100ML BOTTLE 80 ML IV ×2 (16:51→16:53)
[2024-08-30] MEDS: 0.9 % SODIUM CHLORIDE 50 ML VIAL IV ×2 (16:51→16:52)
[2024-08-30 17:03] LABS: Lymphocytes % 9 % (10-50); Monocytes % 5 % (2-9); Neutrophils % 86 % (42-76); Total Cells Counted 100
[2024-08-30 17:06] LABS: RBC Morphology Normal
[2024-08-30 17:19] LABS: Platelet Estimate Slight Increase
[2024-08-30 17:22] LABS: Microscopic, Urine URINE MICROSCOPIC (MICROSCOPIC)
[2024-08-30 17:25] LABS: Appearance,Urine CLEAR (Clear); Bilirubin,Urine Negative (Negative); Blood, Urine 3+ (Negative); Color,Urine YELLOW (Yellow); Glucose,Urine (UA) Negative (Negative); Ketones,Urine TRACE (Negative); Leukocyte Esterase,Urine Negative (Negative); Nitrate,Urine Negative (Negative); Protein,Urine Negative (Negative); Specific Gravity, Urine <= 1.005 (1.005-1.030); Urobilinogen,Urine 0.2 EU/dl (0.2)
[2024-08-30 18:00] LABS: Squamous Epithelial Cell,Urine Occasional #/hpf (0-5)
[2024-08-30 18:01] LABS: Amorphous Sediment,Urine 1+ /lpf; Bacteria,Urine 1+ /lpf
[2024-08-30 18:07] LABS: Creatinine,Urine Random 37 mg/dL (Not Estab.)
--- NOTE | 2024-08-30 18:33 | PC.NURSE ---
REGULATORY COMPLIANCE DIRECTOR NOTIFIED OF ADMISSION
[2024-08-30 18:45] LABS: Ammonia < 9 umol/L (9-30)
[2024-08-30] MEDS: LACTATED RINGERS 1000ML 2,250 ML 1125 ML IV (18:45)
[2024-08-30] MEDS: CEFEPIME HCL 2 GM in 0.9 % SODIUM CHLORIDE 100 ML IV (18:46)
--- NOTE | 2024-08-30 18:51 | PC.NURSE ---
report called to Ruthy
[2024-08-30 19:31] LABS: Reflex Lactic Add Lactic Reflex
[2024-08-30 20:21] LABS: Lactic Acid Follow Up (RFLX 1) 3.5 mmol/L (0.7-2.1)
[2024-08-30] MEDS: 0.9 % SODIUM CHLORIDE 1000ML 1,000 ML 999 ML IV (20:38)
[2024-08-30] MEDS: METRONIDAZ/SOD CHL 500 MG/100 ML PIGGYBACK 100 MG IV (20:40)
[2024-08-30 21:58] LABS: Reflex Lactic (2 hrs) Add Lactic Reflex
--- NOTE | 2024-08-30 22:07 | PC.NURSE ---
Pt. had a vanc consult ordered at 1615 in the ED. It was not marked as done and no notes were placed about the consult. I contacted [facility] pharmacy and spoke to Shola he is looking into the consult and will get back to this RN.
[2024-08-30 22:35] LABS: Lactic Acid Follow up (RFLX 2) 1.6 mmol/L (0.7-2.1)
[2024-08-30] MEDS: VANCOMYCIN CONSULT REQUEST 1 EACH NOTAPPLIC (22:39)
[2024-08-30] MEDS: VANCOMYCIN/WATER FOR INJ (PEG) 1.5 GM/300 ML PIGGYBACK IV (23:32)
[2024-08-31 01:19] VITALS: BP 163/79; PULSE 79; RESP 18; TEMP 36.8; O2SAT 98
--- NOTE | 2024-08-31 01:25 | P.HP_ITS ---
<Statement entered by Aramis Ramos MD - 09/04/24 22:28> I personally evaluated the patient and agree with the plan as outlined by the DIRECTOR OF ATHLETICS. History of Present Illness *Admission Date: 09/30/24 *Reason for visit:: Altered mental status elevated white count *History of present illness: This 63-year-old female has a long history of mental health issues.. Being bipolar she has been kept on lithium for quite some times., She had progressively gotten worse lithium needing to be increased. Until it reached the level of toxicity and has been stopped. The patient was seen in the emergency room on 08/19/2024, and was to follow-up with Barrera Salazar. Patient has been brought back to the emergency room today by her . For increasing psychosis the bipolar disorder she is having headaches GERD hypertension hyperlipidemia now with altered mental status and increased white count. Labs remarkable for significantly elevated white count. Elevated H&H, and increasingly high PT/INR with no history of anticoagulation except for aspirin. Patient also noted is having some ST depressions and T wave inversions V2 through V6. Radiology studies did not find any source of infection. But patient was started on vancomycin and other empiric antibiotics. Labs do indicate dehydration and hemoconcentration with potential overlapping sepsis. Patient was excepted by the daytime provider and brought to the floor, I was then able to examine the patient. She is now sleeping comfortably did not really wake up much while I was examining her. Showing no significant signs distress skin [place] warm and dry please see rest of evaluation and exam below [facility] Disclaimer: The information contained in this section may have been updated after the patient was seen, as this information can be updated by other users. Medical History (Updated 08/31/24 @ 01:58 by Jonathan Carroll APRN) URI (upper respiratory infection) Mild acid reflux Seasonal allergies Abdominal pain GERD (gastroesophageal reflux disease) Sinusitis Cough Shoulder pain, left FH: total abdominal hysterectomy and bilateral salpingo-oophorectomy Anxiety Bladder leak Acute metabolic encephalopathy Hallucinations, visual Surgical History (Updated 08/31/24 @ 01:55 by Jontahan Carroll APRN) Hx of cholecystectomy History of appendectomy Social History (Updated 08/31/24 @ 01:45 by Jonathan Carroll APRN) Smoking Status: Former smoker tobacco type: cigarettes smoking status stop date: 2022 alcohol intake: never substance use type: marijuana current occupational status: disabled Travel in the last 8 weeks: None household members: spouse housing: house number of children: 0 caffeine: Yes Other Medical History Have you received the Flu Vaccine for this season: No Have you received the Pneumonia Vaccine: No Review of Systems Constitutional Constitutional: Reports as per HPI Eyes Eyes: Reports as per HPI ENT Ears, Nose, Mouth, and Throat: Reports as per HPI *Cardiovascular Cardiovascular: Reports as per HPI *Respiratory Respiratory: Reports as per HPI *Gastrointestinal Gastrointestinal: Reports as per HPI *Genitourinary Genitourinary: Reports as per HPI *Musculoskeletal Musculoskeletal: Reports as per HPI Integumentary/Breasts Skin/Breast: Reports as per HPI *Neurologic Neurologic: Reports as per HPI and Reports confusion Psychiatric Psychiatric: Reports as per HPI, Reports auditory hallucinations, Reports confusion, Reports depression, Reports mood swings and Reports visual hallucinations Endocrine Endocrine: Reports as per HPI Hematologic/Lymphatic Hematologic/Lymphatic: Reports as per HPI Allergic/Immunologic Allergic/Immunologic: Reports as per HPI Meds Home Medications and Allergies Home Medications ?Medication ?Instructions ?Recorded ?Confirmed ?Type aspirin 81 mg tablet,delayed 81 mg PO DAILY HEART HEALTH 01/19/18 12/17/21 History release (Adult Low Dose Aspirin) black cohosh 40 mg tablet 40 mg PO DAILY Supplement 01/28/20 12/17/21 History gemfibrozil 600 mg tablet See Rx Instructions .Route 11/17/20 12/17/21 Rx .COMPLEX #180 tabs lithium carbonate 300 mg capsule 300 mg PO BID PSYCH ISSUES #60 caps 12/23/20 12/17/21 Rx twlwjxzryehz-adcbsdkd-wypahj 1 tab PO DAILY #90 tabs 12/23/20 12/17/21 Rx tablet ([employer]er[employer] Senior) loratadine 10 mg tablet See Rx Instructions .Route 02/09/21 12/17/21 Rx .COMPLEX #90 tabs oxybutynin chloride 5 mg See Rx Instructions .Route 02/09/21 12/17/21 Rx tablet,extended release 24 hr .COMPLEX #90 tabs bupropion HCl 150 mg 24 hr tablet, See Rx Instructions .Route 07/06/21 12/17/21 Rx extended release .COMPLEX #90 tabs ropinirole 1 mg tablet 1 mg PO HS #30 tabs 11/24/21 04/21/22 Rx diazepam 5 mg tablet 5 mg PO DAILY 12/17/21 12/17/21 History venlafaxine 150 mg 150 mg PO DAILY 12/17/21 12/17/21 History capsule,extended release 24 hr fluticasone propionate 50 See Rx Instructions .Route 11/22/22 Rx mcg/actuation nasal .COMPLEX #16 caps spray,suspension New Prescriptions to Start Prescriptions: Allergies Allergy/AdvReac Type Severity Reaction Status Date / Time Penicillins (PENICILLINS) Allergy Unknown Verified 12/17/21 12:29 Exam Data for Last 24 hours Vital signs and Labs for Last 24 Hours: Temp Pulse Resp BP Pulse Ox O2 Del Method 98.9 F 86 16 171/83 H 97 Room Air 08/30/24 23:12 08/30/24 23:12 08/30/24 23:12 08/30/24 23:12 08/30/24 23:12 08/30/24 23:12 Laboratory Results - last 24 hr 08/30/24 15:00: WBC 23.7 H*, RBC 6.08 H, Hgb 17.3 H, Hct 52.3 H, MCV 86.0, MCH 28.5, MCHC 33.1, RDW 12.6, Plt Count 461 H, MPV 10.8 H, Neut % (Auto) 83.6 H, Lymph % (Auto) 8.9 L, [place] % (Auto) 5.7, Eos % (Auto) 0.3, Baso % (Auto) 0.5, Neut # (Auto) 19.8 H, Lymph # (Auto) 2.1, [place] # (Auto) 1.4 H, Eos # (Auto) 0.1, Baso # (Auto) 0.1, Total Counted 100, Neutrophils % (Manual) 86 H, Lymphocytes % (Manual) 9 L, Monocytes % (Manual) 5, Platelet Estimate Slight increase, RBC Morphology Normal, PT 46.9 H, INR 4.90 H, APTT 54.1 H, Sodium 142, Potassium 4.5, Chloride 98, Carbon Dioxide 28, Anion Gap 20.5 H, BUN 24 H, Creatinine 0.80, Estimated Creat Clear 67, Estimated GFR 72, Est GFR ( Amer) 87, Glucose 135 H, Calcium 10.8 H, Magnesium 2.5 H, Total Bilirubin 0.5, AST 134 H, ALT 124 H, Alkaline Phosphatase 253 H, Total Creatine Kinase 65, Total Protein 8.0, Albumin 4.4, Globulin 3.6 H, Albumin/Globulin Ratio 1.2, Lipase 125, TSH 1.16, Thyroxine (T4) 8.3, Salicylates < 1.0 L, Acetaminophen < 10 L, Plasma/Serum Alcohol < 10 08/30/24 15:23: VBG pH 7.40, VBG pCO2 45.1, VBG pO2 50.9 H, VBG HCO3 27.0, VBG Total CO2 28.4 H, VBG O2 Saturation 85.5 H, VBG Base Excess 2.1, VBG Lactic Acid 5.4 H 08/30/24 16:15: Lactate 5.2 H 08/30/24 17:17: Urine Color Yellow, Urine Appearance Clear, Urine pH 7.0, Ur Specific [place] <= 1.005, Urine Protein Negative, Urine Glucose (UA) Negative, Urine Ketones Trace, Urine Blood 3+ A, Urine Nitrate Negative, Urine Bilirubin Negative, Urine Urobilinogen 0.2, Ur Leukocyte Esterase Negative, Urine RBC 10- 20, Urine WBC 3-5, Ur Squamous Epith Cells Occasional, Amorphous Sediment 1+, Urine Bacteria 1+, Urine Creatinine 37, Urine Sodium 10.0 L 08/30/24 18:30: Ammonia < 9 L 08/30/24 19:50: Lactate 3.5 H 08/30/24 22:20: Lactate 1.6 I & O for Last 24 hours: Intake & Output 08/28/24 08/29/24 08/30/24 08/31/24 05:59 05:59 05:59 05:59 Weight 165 lb Radiology Reports for the Last 24 Hours: No acute findings found on multiple test. Constitutional Constitutional: moderate distress and obese *Routine HEENT Exam Head: Present normocephalic and atraumatic Eye: Present EOMI, PERRL and normal accommodation ENT: Present mucous membranes moist *Routine Neck Exam Neck: Present supple and full ROM Routine Chest/Breast/Axilla Exam Comments: No abnormalities found no signs of tenderness found *Routine Respiratory Exam Respiratory: Present CTA bilaterally, normal respiratory effort, able to speak in complete sentences and symmetric chest movement *Routine Cardiovascular Exam Cardiovascular: Present RRR, Normal S1 and Normal S2 *Routine Abdominal Exam Abdominal: Present soft and normoactive bowel sounds *Routine Rectal Exam Rectal:: deferred *Routine Genitalia Exam Genitalia:: deferred *Routine Extremities Exam Comments: No tenderness found able to move all extremities Routine Back/Spine/Pelvis Exam Back/Spine: Present full ROM Comments: Patient is able to move bend position herself without difficulty *Routine Skin Exam Skin: Present intact, warm and normal turgor Comments: No signs of rash or injury or bruising *Routine Neurological Exam Neurological: Present alert, oriented X3, CN II-XII intact and normal tone Routine Psychiatric Exam Psychiatric: Present auditory hallucinations (By recent history), visual hallucinations (By recent history) and anxious H&P: Result Impressions 1. Long mental health history with bipolar now with hallucination. Medication does not seem to be working. Has been on lithium for approximately 2 years, now per has started to continue a downhill slide. Recently was in the emergency room for similar behavioral issues in mid July. Now has come back to the emergency room more confused having hallucinations noting extremely high white blood cell count. We concentration of hemoglobin hematocrit. Coagulation factors more than doubled on lab test. And also liver function AST ALT are elevated. Noting also low urine sodium. From chart patient is followed at [facility] for her mental health issues. Patient seen in the ER ER physician talked to daytime provider who agrees that the patient needs to be admitted., She has been moved to the floor with a Horner catheter of that is putting out clear yellow urine. Nurse has described the patient is quite confused as she was sleeping when I was examining her and her was not in the room any longer. Patient was resting well and vital signs are stable Imaging and Cardiology CT scan - abdomen: Additional comments: No abnormal findings CT scan - head: Status: image reviewed by me Additional comments: No abnormal findings Assessment and Plan *Assessment and plan (1) Severe sepsis: Status: Acute Category: Medical Code(s): A41.9 - Sepsis, unspecified organism; R65.20 - Severe sepsis without septic shock (2) Elevated white blood cell count: Status: Acute Qualifiers: Leukocytosis type: leukemoid reaction Qualified Code(s): D72.823 - Leukemoid reaction Category: Medical Code(s): D72.829 - Elevated white blood cell count, unspecified (3) Elevated liver function tests: Status: Acute Category: Medical Code(s): R79.89 - Other specified abnormal findings of blood chemistry (4) Coagulation test abnormality: Status: Acute Category: Medical Code(s): R79.1 - Abnormal coagulation profile (5) Acute metabolic encephalopathy: Status: Acute Category: Medical Code(s): G93.41 - Metabolic encephalopathy (6) Bipolar 1 disorder: Status: Acute Category: Medical Code(s): F31.9 - Bipolar disorder, unspecified (7) Hallucinations, visual: Status: Acute Category: Medical Code(s): R44.1 - Visual hallucinations (8) Hiatal hernia: Status: Acute Category: Medical Code(s): K44.9 - Diaphragmatic hernia without obstruction or gangrene (9) Anxiety: Status: Acute Category: Medical Code(s): F41.9 - Anxiety disorder, unspecified (10) Depression: Status: Acute Qualifiers: Depression Type: major depressive disorder Major depression recurrence: recurrent Active/Remission status: currently active Major depression episode severity: moderate Qualified Code(s): F33.1 - Major depressive disorder, recurrent, moderate Category: Medical Code(s): F32.A - Depression, unspecified Plan 1. For sepsis with the abnormal lab test. Patient has empirically been placed on antibiotics.. Has urine catheter and Horner placed also. Will continue to treat the patient and seek the initial source of infection. 2. Abnormal liver function test and abnormal coagulation test. Will continue to monitor the labs for the patient and see if this is worsening may require further studies to evaluate for cirrhosis and/or liver failure. 3. Mental health issues including hallucinations, bipolar, anxiety, depression,, holding most home medications at this time until patient is further evaluated to add back medications that would not affect liver function or coagulation function. Noting through history that medication here recently being changed has had no help as if her underlying conditions are just progressively worsening..
[2024-08-31 04:00] VITALS: PULSE 80; BMI 34.6
[2024-08-31 04:07] LABS: Lithium (Eskalith(R)) 0.2 mmol/L (0.5-1.2)
[2024-08-31 07:08] LABS: INR 4.87 (0.9-1.1)
[2024-08-31 07:11] LABS: Alanine Aminotransferase 66 U/L (12-78); Albumin Level 3.1 g/dl (3.5-5.0); Albumin/Globulin Ratio 1.2 (1.1-1.8); Alkaline Phosphatase 160 U/L (38-126); Anion Gap 8.1 mEq/L (5-15); Aspartate Amino Transferase 65 U/L (14-36); Bilirubin,Total 0.3 mg/dl (0.2-1.3); Blood Urea Nitrogen 15 mg/dl (7-17); Calcium 9.2 mg/dl (8.4-10.2); Carbon Dioxide 28 mmol/L (22.0-30.0); Chloride 110 mmol/L (98-107); Creatinine Clearance Estimated 67 mL/min (50-200); Estimated Glomerular Filt Rate 84 ml/min (>60); GFR (African American) 102 ML/MIN (>60); Globulin 2.5 g/dL (1.3-3.2); Glucose 70 mg/dl (74-100); Magnesium 2.1 mg/dl (1.6-2.3); Potassium 3.1 mmoL/L (3.5-5.1); Sodium 143 mmol/L (136-145); Total Protein,Serum 5.6 g/dl (6.3-8.2)
[2024-08-31 07:16] LABS: Lactic Acid 1.2 mmol/L (0.7-2.1)
[2024-08-31 07:27] LABS: Basophils # 0.1 K/mm3 (0-0.2); Basophils % 0.4 % (0.1-2.0); Eosinophils # 0.1 K/mm3 (0.0-0.4); Hematocrit 39.4 % (37.0-47.0); Lymphocytes # 1.2 K/mm3 (0.7-4.5); Lymphocytes % 8.8 % (10-50); Mean Corpuscular Hemoglobin 28.2 pg (27.0-31.2); Mean Corpuscular Volume 88.1 fl (81-99); Mean Platelet Volume 10.7 fl (7.4-10.4); Monocytes # 0.8 K/mm3 (0.1-1.0); Monocytes % 5.6 % (1.7-9.3); Neutrophils # 11.2 K/mm3 (1.8-7.8); Neutrophils % 83.3 % (37.0-80.0); Platelet Count 274 K/mm3 (142-424); Red Blood Count 4.47 M/mm3 (4.20-5.40); Red Cell Distribution Width 12.7 % (11.5-17.5); White Blood Count 13.4 K/mm3 (4.8-10.8)
[2024-08-31 07:49] LABS: Prothrombin Time 46.6 seconds (10.1-12.5)
[2024-08-31 08:00] VITALS: BP 162/77; PULSE 91; RESP 14; TEMP 36.6; O2SAT 98
--- NOTE | 2024-08-31 08:07 | PC.NURSE ---
Pt. was admitted 08/30/24 at change of shift for AMS/Sepsis.Per pt. . Pt. has bipolar and was on meds and got toxic. meds have been changed around. reports Pt. was seeing things that were not there and was very confused for last week. She was seen in the ED twice in the last month.Pt. alert to name only, words garbled. She is able to say husbands name clear. Pt. tried climing out of bed several times. bed alarm on. VSS. Personal items and call dixon in reach. Pt. unable to follow commands so staff kept close eyes on her.
[2024-08-31 08:08] LABS: Hemoglobin 12.6 g/dL (12.2-16.2)
[2024-08-31] MEDS: DOCUSATE SODIUM 100 MG CAPSULE PO (08:19)
[2024-08-31] MEDS: POTASSIUM CHLORIDE 20MEQ TAB 40 MEQ PO ×3 (08:57→16:03)
[2024-08-31] MEDS: ONDANSETRON 4MG/2ML VIAL 4 MG IV (09:04)
[2024-08-31] MEDS: PHYTONADIONE 5 MG in 0.9 % SODIUM CHLORIDE 50 ML 100 MG IV (09:13)
[2024-08-31] MEDS: CEFTRIAXONE 1 GM 1 GM in 0.9 % SODIUM CHLORIDE 50 ML IV (10:46)
[2024-08-31] MEDS: 0.9 % SODIUM CHLORIDE 1000ML 1,000 ML 100 ML IV (10:46)
[2024-08-31 12:00] VITALS: BP 158/74; PULSE 80; RESP 16; TEMP 36.2; O2SAT 95
--- NOTE | 2024-08-31 12:04 | P.CONPHA_ITS ---
Pharmacy Consult Date: 08/31/24 Time: 12:06 Referring provider: DR HOFFMAN Reason for Consult:: VANCOMYCIN DOSING CONSULT Allergies Allergy/AdvReac Type Severity Reaction Status Date / Time Penicillins (PENICILLINS) Allergy Unknown Verified 12/17/21 12:29 Home Medications ?Medication ?Instructions ?Recorded ?Confirmed ?Type diazepam 5 mg tablet 5 mg PO BIDP PRN Anxiety 12/17/21 08/31/24 History venlafaxine 150 mg 150 mg PO DAILY 12/17/21 08/31/24 History capsule,extended release 24 hr bupropion HCl 150 mg 24 hr tablet, 150 mg PO DAILY 08/31/24 08/31/24 History extended release divalproex 250 mg tablet,delayed 250 mg PO TID 08/31/24 08/31/24 History release loratadine 10 mg tablet 10 mg PO DAILY 08/31/24 08/31/24 History metformin 500 mg tablet,extended 500 mg PO DAILY 08/31/24 08/31/24 History release 24 hr ropinirole 1 mg tablet 1 mg PO BID 08/31/24 08/31/24 History rosuvastatin 10 mg tablet 10 mg PO HS 08/31/24 08/31/24 History venlafaxine 75 mg capsule,extended 75 mg PO DAILY 08/31/24 08/31/24 History release 24 hr New Prescriptions to Start Prescriptions: Height: 1.47 m Weight: 74.843 kg Laboratory Results:: Laboratory Results - last 24 hr 08/30/24 15:00: WBC 23.7 H*, RBC 6.08 H, Hgb 17.3 H, Hct 52.3 H, MCV 86.0, MCH 28.5, MCHC 33.1, RDW 12.6, Plt Count 461 H, MPV 10.8 H, Neut % (Auto) 83.6 H, Lymph % (Auto) 8.9 L, [place] % (Auto) 5.7, Eos % (Auto) 0.3, Baso % (Auto) 0.5, Neut # (Auto) 19.8 H, Lymph # (Auto) 2.1, [place] # (Auto) 1.4 H, Eos # (Auto) 0.1, Baso # (Auto) 0.1, Total Counted 100, Neutrophils % (Manual) 86 H, Lymphocytes % (Manual) 9 L, Monocytes % (Manual) 5, Platelet Estimate Slight increase, RBC Morphology Normal, PT 46.9 H, INR 4.90 H, APTT 54.1 H, Sodium 142, Potassium 4.5, Chloride 98, Carbon Dioxide 28, Anion Gap 20.5 H, BUN 24 H, Creatinine 0.80, Estimated Creat Clear 67, Estimated GFR 72, Est GFR ( Amer) 87, Glucose 135 H, Calcium 10.8 H, Magnesium 2.5 H, Total Bilirubin 0.5, AST 134 H, ALT 124 H, Alkaline Phosphatase 253 H, Total Creatine Kinase 65, Total Protein 8.0, Albumin 4.4, Globulin 3.6 H, Albumin/Globulin Ratio 1.2, Lipase 125, TSH 1.16, Thyroxine (T4) 8.3, Salicylates < 1.0 L, Acetaminophen < 10 L, [place] 0.2 L, Plasma/Serum Alcohol < 10 08/30/24 15:23: VBG pH 7.40, VBG pCO2 45.1, VBG pO2 50.9 H, VBG HCO3 27.0, VBG Total CO2 28.4 H, VBG O2 Saturation 85.5 H, VBG Base Excess 2.1, VBG Lactic Acid 5.4 H 08/30/24 16:15: Lactate 5.2 H 08/30/24 17:17: Urine Color Yellow, Urine Appearance Clear, Urine pH 7.0, Ur Specific [place] <= 1.005, Urine Protein Negative, Urine Glucose (UA) Negative, Urine Ketones Trace, Urine Blood 3+ A, Urine Nitrate Negative, Urine Bilirubin Negative, Urine Urobilinogen 0.2, Ur Leukocyte Esterase Negative, Urine RBC 10- 20, Urine WBC 3-5, Ur Squamous Epith Cells Occasional, Amorphous Sediment 1+, Urine Bacteria 1+, Urine Creatinine 37, Urine Sodium 10.0 L 08/30/24 18:30: Ammonia < 9 L 08/30/24 19:50: Lactate 3.5 H 08/30/24 22:20: Lactate 1.6 08/31/24 06:33: WBC 13.4 H D, RBC 4.47 D, Hgb 12.6 D, Hct 39.4, MCV 88.1, MCH 28.2, MCHC 32.0, RDW 12.7, Plt Count 274 D, MPV 10.7 H, Neut % (Auto) 83.3 H, Lymph % (Auto) 8.8 L, [place] % (Auto) 5.6, Eos % (Auto) 1.0, Baso % (Auto) 0.4, Neut # (Auto) 11.2 H, Lymph # (Auto) 1.2, [place] # (Auto) 0.8, Eos # (Auto) 0.1, Baso # (Auto) 0.1, PT 46.6 H, INR 4.87 H, Sodium 143, Potassium 3.1 L D, Chlorid e 110 H, Carbon Dioxide 28, Anion Gap 8.1, BUN 15 D, Creatinine 0.70, Estimated Creat Clear 67, Estimated GFR 84, Est GFR ( Amer) 102, Glucose 70 L D, Lactate 1.2, Calcium 9.2, Magnesium 2.1 D, Total Bilirubin 0.3, AST 65 H D, ALT 66 D, Alkaline Phosphatase 160 H, Total Protein 5.6 L D, Albumin 3.1 L D, Globulin 2.5, Albumin/Globulin Ratio 1.2 Medical History: Medical History (Updated 08/31/24 @ 01:58 by Jonathan Carroll APRN) URI (upper respiratory infection) Mild acid reflux Seasonal allergies Abdominal pain GERD (gastroesophageal reflux disease) Sinusitis Cough Shoulder pain, left FH: total abdominal hysterectomy and bilateral salpingo-oophorectomy Anxiety Bladder leak Acute metabolic encephalopathy Hallucinations, visual Assessment and Plan Assessment and plan all Dx Assessment and Plan for all problems:: Pharmacokinetic dosing service Objective: Age: 63 yo Serum creatinine: 0.7 mg/dL Height: 57.9 Inches Weight (kg): 74.843 Diagnosis: SEPSIS Assessment: IBW (kg): 43.91 Dosing wt(kg): 74.843 Estimated Creatinine clearance (ml/min): 56.3 CRCL method: Cockcroft and Gault using ibw(default). Drug selected: Vancomycin Loading dose (mg): 1500 MG Vd (liters): 52.4 (factor used: 0.7 L/kg) Lew (hr-1): 0.051 Half life (hrs): 13.59 CLvanco=?? 2.672 L/hr Recommended dose: 1250 mg Interval: 24 hrs Infusion time (hrs): 2.0 Predicted peak (mcg/mL): 32.1 Predicted trough (mcg/mL): 10.45 Total body weight is being used for vancomycin dosing. Recommendations: Give Vancomycin 1250 mg q 24 hrs with an expected Cpeak of 32.1 mcg/ml and an expected Ctrough of 10.45 mcg/ml, PATIENT RECEIVED A ONE-TIME LOADING DOSE OF VANCOMYCIN 1500 MG IV 08/30/24 23:32. AUC 0-24 /HARRISON Data: HARRISON 0.5 mcg/mL:?? AUC/HARRISON:? 935.6 HARRISON 1.0 mcg/mL:?? AUC/HARRISON:? 467.8 --------- HARRISON 1.5 mcg/mL:?? AUC/HARRISON:? 311.9 HARRISON 2.0 mcg/mL:?? AUC/HARRISON:? 233.9 Thank you for the consult
--- NOTE | 2024-08-31 14:16 | PC.NURSE ---
Pt is aox 1 with confusion, 90's on RA, 20g L AC NS @ 100 ML/HR, f/c in place, bed alarm active.
[2024-08-31 18:36] LABS: Coronavirus 19, PCR Not Detected (NotDetected); Human Rhinovirus Not Detected (NotDetected); Influenza A, PCR Not Detected (NotDetected); Influenza B, PCR Not Detected (NotDetected); Respiratory Syncytial Virus Not Detected (NotDetected)
[2024-08-31 20:00] VITALS: BP 168/76; PULSE 91; RESP 16; TEMP 37.1; O2SAT 94
[2024-08-31] MEDS: PANTOPRAZOLE 40MG TABLET 40 MG PO (20:44)
[2024-08-31] MEDS: CEFTRIAXONE 1 GM 2 GM in 0.9 % SODIUM CHLORIDE 50 ML IV (21:32)
--- NOTE | 2024-08-31 22:07 | EXP.PN ---
Subjective *Date: 08/31/24 *Time: 12:40 Interval history: Continues to be profoundly weak, confused. But slightly improved from yesterday per at bedside. Exam Data for Last 24 hours Vital signs and Labs for Last 24 Hours: Temp Pulse Resp BP Pulse Ox O2 Del Method 98.7 F 91 H 16 168/76 H 94 L Room Air 08/31/24 20:00 08/31/24 20:00 08/31/24 20:00 08/31/24 20:00 08/31/24 20:00 08/31/24 20:00 Laboratory Results - last 24 hr 08/30/24 15:00: [place] 0.2 L 08/30/24 22:20: Lactate 1.6 08/31/24 06:33: WBC 13.4 H D, RBC 4.47 D, Hgb 12.6 D, Hct 39.4, MCV 88.1, MCH 28.2, MCHC 32.0, RDW 12.7, Plt Count 274 D, MPV 10.7 H, Neut % (Auto) 83.3 H, Lymph % (Auto) 8.8 L, [place] % (Auto) 5.6, Eos % (Auto) 1.0, Baso % (Auto) 0.4, Neut # (Auto) 11.2 H, Lymph # (Auto) 1.2, [place] # (Auto) 0.8, Eos # (Auto) 0.1, Baso # (Auto) 0.1, PT 46.6 H, INR 4.87 H, Sodium 143, Potassium 3.1 L D, Chloride 110 H, Carbon Dioxide 28, Anion Gap 8.1, BUN 15 D, Creatinine 0.70, Estimated Creat Clear 67, Estimated GFR 84, Est GFR ( Amer) 102, Glucose 70 L D, Lactate 1.2, Calcium 9.2, Magnesium 2.1 D, Total Bilirubin 0.3, AST 65 H D, ALT 66 D, Alkaline Phosphatase 160 H, Total Protein 5.6 L D, Albumin 3.1 L D, Globulin 2.5, Albumin/Globulin Ratio 1.2 I & O for Last 24 hours: Intake & Output 08/28/24 08/29/24 08/30/24 08/31/24 23:59 23:59 23:59 23:59 Intake Total 4970 / 4970 Output Total 750 / 1500 2375 / 2375 Balance -750 / 2310 2595 / 2595 Weight 74.843 kg 74.843 kg Microbiology Reports for the Last 24 Hours: Microbiology 08/30/24 16:20 Blood Blood Culture - Preliminary NO GROWTH AFTER 24 HOURS 08/30/24 16:20 Blood Blood Culture - Preliminary NO GROWTH AFTER 24 HOURS Constitutional Constitutional: no acute distress Comments: Psychomotor retardation. Confused. *Routine HEENT Exam Head: Present normocephalic Eye: Present EOMI and PERRL ENT: Present mucous membranes moist *Routine Neck Exam Neck: Present supple; Absent lymphadenopathy *Routine Respiratory Exam Respiratory: Present CTA bilaterally *Routine Cardiovascular Exam Cardiovascular: Present RRR *Routine Abdominal Exam Abdominal: Present soft and normoactive bowel sounds; Absent tenderness *Routine Extremities Exam Extremities: Absent cyanosis, clubbing or edema Comments: Bilateral upper and lower motor strength 1/5. *Routine Skin Exam Skin: Present warm; Absent rash *Routine Neurological Exam Neurological: Present alert and oriented X3 Assessment and Plan *Assessment and plan (1) Bipolar disorder: Status: Acute Category: Medical Code(s): F31.9 - Bipolar disorder, unspecified (2) Acute metabolic encephalopathy: Status: Acute Category: Medical Code(s): G93.41 - Metabolic encephalopathy (3) Sepsis: Status: Acute Category: Medical Code(s): A41.9 - Sepsis, unspecified organism Plan Som Ruth is a 63-year-old female with a medical history significant for bipolar disorder, diabetes who admitted with acute metabolic encephalopathy, profound generalized weakness, and meeting SIRS criteria. #Sepsis, suspected meningitis #Bipolar disorder, ?depressive state/catotonia #Generalized weakness #Acute metabolic encephalopathy - Patient is not the best historian at this time, but per she has been complaining of headaches recently. ? Per , patient has been having progressive generalized weakness over the past week and a half. Of note, she had been weaned off lithium last month for toxicity for bipolar disorder - Presented with significant leukocytosis 23.7, tachycardia. ? Has significant generalized weakness, motor strength 1/5 in all extremities, confused. - Workup thus far negative, including CT scans, UA, respiratory panel, and blood cultures. ? Also suspect catatonia from depressive state in the setting of bipolar disorder after lithium. Consider Ativan challenge tomorrow if symptoms or not improving. ? WBC improved from 23.7-13.4. - Continue Vanc, ceftriaxone for now. Will hold off on acyclovir for now given neutrophilic predominance. ? Consider LP on Tuesday. #Elevated PT/INR ? Initial PT/INR 46.9/4.9. Unclear why it would be elevated, potentially from vitamin K deficiency as patient is been encephalopathic and not eating well. ? Will administer IV vitamin K 5 mg today. ? Follow-up PT/INR tomorrow. #Bipolar disorder ? Recently discontinued from lithium due to toxicity. ? Hold off on Wellbutrin, Depakote, venlafaxine given encephalopathy at this time. Full code
[2024-08-31] MEDS: VANCOMYCIN/WATER FOR INJ (PEG) 1.25 GM/250 ML PIGGYBACK IV (22:19)
[2024-08-31] MEDS: 0.9 % SODIUM CHLORIDE 1000ML 1,000 ML 75 ML IV (22:19)
[2024-09-01 04:00] VITALS: BP 127/58; PULSE 94; RESP 16; TEMP 37.1; O2SAT 94; BMI 24.7
--- NOTE | 2024-09-01 05:50 | PC.NURSE ---
Alert to self. This nurse took over care for patient at 0000. Pt has had no complaints. Horner in place and draining. Patient remains on room air. Bed alarm on. Call light in reach.
[2024-09-01 08:00] VITALS: BP 163/77; PULSE 94; RESP 18; TEMP 36.9; O2SAT 95
[2024-09-01 08:04] LABS: Ammonia < 9 umol/L (9-30)
[2024-09-01 08:12] LABS: Lactic Acid 0.9 mmol/L (0.7-2.1)
[2024-09-01] MEDS: DOCUSATE SODIUM 100 MG CAPSULE PO (08:20)
[2024-09-01 09:21] LABS: Iron 36 ug/dL (37-170)
[2024-09-01 10:42] LABS: INR 0.97 (0.9-1.1); Prothrombin Time 10.9 seconds (10.1-12.5)
[2024-09-01 11:14] VITALS: BP 163/78; PULSE 86; RESP 18; TEMP 36.8; O2SAT 95
--- NOTE | 2024-09-01 11:40 | HMH.PTEV ---
Physical Therapy Evaluation Rehab PT IP Evaluation Start: 09/01/24 10:29 Freq: ONCE Status: Active Protocol: Document 09/01/24 11:20 MARCI (Rec: 09/01/24 11:40 MARCI [id number]) Subjective/History History History Per H&P: This 63-year-old female has a long history of mental health issues.. Being bipolar she has been kept on lithium for quite some times., She had progressively gotten worse lithium needing to be increased. Until it reached the level of toxicity and has been stopped. The patient was seen in the emergency room on 08/19/2024, and was to follow -up with Barrera Salazar. Patient has been brought back to the emergency room today by her . For increasing psychosis the bipolar disorder she is having headaches GERD hypertension hyperlipidemia now with altered mental status and increased white count. Labs remarkable for significantly elevated white count. Elevated H&H, and increasingly high PT/INR with no history of anticoagulation except for aspirin. Patient also noted is having some ST depressions and T wave inversions V2 through V6. Radiology studies did not find any source of infection. But patient was started on vancomycin and other empiric antibiotics. Labs do indicate dehydration and hemoconcentration with potential overlapping sepsis. Patient was excepted by the daytime provider and brought to the floor, I was then able to examine the patient. She is now sleeping comfortably did not really wake up much while I was examining her. Showing no significant signs distress skin [place] warm and dry please see rest of evaluation and exam below Subjective Subjective Pt required multiple cues to wake. Pt unable to follow commands once awake. Pt reports yes to lives alone. Pt is a questionable historian . Refer to CM for social history. New diagnosis of cancer in past 12 No months? Rehab PT IP Eval Objective Appearance Patient Behavior Fatigued,Confused Difficulty following instructions moderate Speech Pattern Mumbled,Poor Articulation Ambulation Patient Able to Ambulate No Balance Ability to Arise Unable Transfers Bed Transfer Ability Total/Dependent (100%) Rehab PT IP prob,goals,plan Problems Date of Evaluation: 09/01/24 PT IP Problems Bed Mobility,Transfers,Gait, Balance,Self care,Safety Rehab Potential Rehab Potential Good Plan PT Intervention Plan Bed Mobility,Transfers,Gait, Balance,Self care,Safety, Therapeutic Exercise Other Intervention Plan 1-2 times PT Plan Frequency Daily Duration LOS Discharge Goals Bed Transfer Ability Maximum x 1 (75% assist) Sit to Stand Chair Transfer Ability Maximum x 1 (75% assist) Discharge Plan PT Discharge Plan Pt's mobility limited by difficulty following commands and generalized weakness. PT provided multiple simple one- step commands but pt not able to follow. Pt slightly resistive to mobility and was unable to sit EOB without DEP A. Pt most appropriate for inpatient rehab placement upon d/c from [facility] d/t current level of mobility. Pt would benefit from skilled IP PT while at [facility] to address these mobility deficits and prevent skin breakdown d/t immobility. Eval Complexity Eval Charge Codes 49431 - Moderate Complexity PHYSICIAN CERTIFICATION: I certify the specified therapy services for Som Ruth are required, authorized, and reviewed every 30 days.
[2024-09-01 12:06] LABS: Total Iron Binding Capacity 263 ug/dL (265-497)
[2024-09-01 12:29] LABS: Thyroid Stimulating Hormone 2.93 uIU/mL (0.465-4.68)
[2024-09-01 12:33] LABS: Ferritin 322 ng/ml (11.1-264)
[2024-09-01 13:45] LABS: Vitamin B12 823 pg/mL (239-931)
[2024-09-01 13:50] LABS: Folate 5.53 ng/mL
[2024-09-01] MEDS: LORazepam 2MG/ML VIAL 1 MG IV (14:27)
[2024-09-01 15:27] VITALS: BP 145/71; PULSE 78; RESP 18; TEMP 36.8; O2SAT 95
--- NOTE | 2024-09-01 18:18 | PC.NURSE ---
PT IS RESTING IN BED WITH FAMILY AT BEDSIDE. ALERT TO SELF ONLY. WILL ANSWER SIMPLE YES OR NO QUESTIONS. PT WAS REFUSING TO EAT FOR NURSING STAFF BUT DID TAKE A FEW BITES OF DINNER WHEN HER ARRIVED. PT WAS AGITATED AND YELLED OUT EARLIER THIS AFTERNOON. HOSPITALIST ORDERED 1 DOSE OF IV ATIVAN. LUNG SOUNDS CLEAR. ABDOMEN SOFT/NON TENDER WITH ACTIVE BOWEL SOUNDS. WILL CONTINUE TO MONITOR.
[2024-09-01] MEDS: CEFTRIAXONE SODIUM 2 GM in 0.9 % SODIUM CHLORIDE 100 ML IV (18:45)
[2024-09-01 19:39] VITALS: BP 134/66; PULSE 89; RESP 15; TEMP 36.9; O2SAT 96
[2024-09-01] MEDS: DIVALPROEX 250MG (Delayed-Release) TABLET 250 MG PO (20:08)
[2024-09-01] MEDS: ROPINIROLE 1MG TABLET 1 MG PO (20:08)
[2024-09-01] MEDS: PANTOPRAZOLE 40MG TABLET 40 MG PO (20:08)
[2024-09-01] MEDS: VANCOMYCIN/WATER FOR INJ (PEG) 1.25 GM/250 ML PIGGYBACK IV (22:49)
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
[2024-09-02] VITALS (7 sets, daily range): BP systolic 136–165; BP diastolic 69–74; PULSE 70–90; RESP 16–18; TEMP 36.4–37.3; O2SAT 91–96; BMI 25.0
--- NOTE | 2024-09-02 04:52 | PC.NURSE ---
Pt has remained alert to self only. She has tolerated room air. Lung sounds clear and bowel sounds active. She has remained very fatigued and has slept most of the shift. VSS. Horner has remained in place and draining well. Currently asleep with bed alarm on.
[2024-09-02] MEDS: 0.9 % SODIUM CHLORIDE 1000ML 1,000 ML 75 ML IV (05:24)
[2024-09-02 07:32] LABS: MANUAL DIFFERENTIAL MANUAL DIFFERENTIAL (MANUAL DIFF)
[2024-09-02 07:34] LABS: Basophils # 0.1 K/mm3 (0-0.2); Basophils % 0.4 % (0.1-2.0); Eosinophils # 0.2 K/mm3 (0.0-0.4); Eosinophils % 1.3 % (0.1-12.0); Hematocrit 35.5 % (37.0-47.0); Hemoglobin 11.4 g/dL (12.2-16.2); Lymphocytes # 1.2 K/mm3 (0.7-4.5); Lymphocytes % 8.9 % (10-50); Mean Corpuscular HGB Conc 32.1 g/dL (31.8-35.4); Mean Corpuscular Hemoglobin 28.9 pg (27.0-31.2); Mean Corpuscular Volume 89.9 fl (81-99); Mean Platelet Volume 9.8 fl (7.4-10.4); Monocytes # 0.8 K/mm3 (0.1-1.0); Monocytes % 5.7 % (1.7-9.3); Neutrophils # 11.1 K/mm3 (1.8-7.8); Platelet Count 263 K/mm3 (142-424); Red Blood Count 3.95 M/mm3 (4.20-5.40); Red Cell Distribution Width 12.7 % (11.5-17.5); White Blood Count 13.5 K/mm3 (4.8-10.8)
[2024-09-02 08:00] LABS: Alanine Aminotransferase 46 U/L (12-78); Albumin Level 2.7 g/dl (3.5-5.0); Albumin/Globulin Ratio 1.1 (1.1-1.8); Alkaline Phosphatase 152 U/L (38-126); Anion Gap 6.8 mEq/L (5-15); Aspartate Amino Transferase 46 U/L (14-36); Blood Urea Nitrogen 6 mg/dl (7-17); Calcium 8.6 mg/dl (8.4-10.2); Carbon Dioxide 29 mmol/L (22.0-30.0); Chloride 111 mmol/L (98-107); Creatinine Clearance Estimated 48 mL/min (50-200); Estimated Glomerular Filt Rate 101 ml/min (>60); GFR (African American) 122 ML/MIN (>60); Globulin 2.5 g/dL (1.3-3.2); Glucose 92 mg/dl (74-100); Sodium 144 mmol/L (136-145); Total Protein,Serum 5.2 g/dl (6.3-8.2)
[2024-09-02 08:05] LABS: Bilirubin,Total < 0.1 mg/dl (0.2-1.3)
[2024-09-02 08:07] LABS: Potassium 2.8 mmoL/L (3.5-5.1)
[2024-09-02] MEDS: FOLIC ACID 1MG TABLET 1 MG PO (08:23)
[2024-09-02] MEDS: ROPINIROLE 1MG TABLET 1 MG PO ×2 (08:23→20:00)
[2024-09-02] MEDS: DOCUSATE SODIUM 100 MG CAPSULE PO (08:23)
[2024-09-02] MEDS: DIVALPROEX 250MG (Delayed-Release) TABLET 250 MG PO ×3 (08:24→20:00)
[2024-09-02] MEDS: POTASSIUM CHLORIDE 20MEQ TAB 40 MEQ PO (09:35)
[2024-09-02] MEDS: THIAMINE HCL 100 MG in 0.9 % SODIUM CHLORIDE 50 ML 204 MG IV (09:35)
[2024-09-02] MEDS: TRIMETHOPRIM IV ×2 (09:57→19:59)
[2024-09-02] MEDS: SULFAMETHOXAZOLE IV ×2 (09:57→19:59)
[2024-09-02] MEDS: DEXTROSE IV ×2 (09:57→19:59)
[2024-09-02] MEDS: WATER IV ×2 (09:57→19:59)
[2024-09-02 09:58] LABS: Lymphocytes % 5 % (10-50); Monocytes % 3 % (2-9); Neutrophils % 92 % (42-76); Platelet Estimate Normal; RBC Morphology Normal; Total Cells Counted 100
[2024-09-02 10:08] LABS: INR 0.94 (0.9-1.1); Prothrombin Time 10.6 seconds (10.1-12.5)
[2024-09-02] MEDS: CEFTRIAXONE SODIUM 2 GM in 0.9 % SODIUM CHLORIDE 100 ML IV ×2 (11:39→21:09)
[2024-09-02 11:46] LABS: C-Reactive Protein 112.1 mg/L (0-4)
[2024-09-02 12:30] LABS: Erythrocyte Sedimentation Rate 96 mm/hr (0-30)
[2024-09-02 12:52] LABS: Procalcitonin 0.102 ng/mL (0.0-2.0)
[2024-09-02] MEDS: KCl 10mEq/100ml 100 ML 100 MEQ IV ×6 (12:57→18:17)
[2024-09-02] MEDS: buPROPion HCl SR 150MG TAB 150 MG PO (12:57)
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
[2024-09-02] MEDS: ENOXAPARIN 40MG/0.4ML SYRINGE 40 MG SUBCUT (13:50)
[2024-09-02] MEDS: LORazepam 2MG/ML VIAL 2 MG IV ×2 (13:50→23:10)
[2024-09-02 13:55] LABS: Barbiturates Screen,Urine Negative ng/ml (<200); Benzodiazepines Screen,Urine Positive ng/ml (<200)
[2024-09-02 13:56] LABS: Amphetamine/Metha Screen,Urine Negative ng/ml (<1000)
[2024-09-02 13:57] LABS: Cannabinoid Screen,Urine Negative ng/ml (<50); Cocaine Screen,Urine Negative ng/ml (<300)
[2024-09-02 13:58] LABS: Methadone Screen,Urine Negative ng/ml (<300)
[2024-09-02 13:59] LABS: Opiate Screen,Urine Negative ng/ml (<300); Phencyclidine Screen,Urine Negative ng/ml (<25)
--- NOTE | 2024-09-02 17:43 | PC.NURSE ---
pt alert to self only. at bedside. pt has refused to eat, only taking a few small bites of each meal. pt had new IV placed in rt forearm after ripping out the previous 22 placed in her rt forearm. potassium replaced IV after pt spit oral form out numerous times. pt has become agitated at times, trying to exit the bed and cursing at staff. reza in place and draining pale urine. pt has not complained of pain. fluids stopped this shift. no needs at this time. bed alarm on for pt safety and bed in low and locked position. call light within reach.
[2024-09-02] MEDS: PANTOPRAZOLE 40MG TABLET 40 MG PO (20:00)
[2024-09-02] MEDS: ATORVASTATIN 40MG TABLET 40 MG PO (20:00)
[2024-09-02 22:51] LABS: Vancomycin,Trough 5.2 ug/mL (5.0-10.0)
--- NOTE | 2024-09-02 23:05 | EXP.EVENT.NO ---
Patient has a long history of mental health problems. Is agitated confused tonight yelling out. Last night was given 2 mg of Ativan IV that worked very well. Nurse states that this is very similar to what happened last night. And that the Ativan worked very well. Will order a one-time dose of Ativan 2 mg to be given now IV.
[2024-09-02] MEDS: VANCOMYCIN/WATER FOR INJ (PEG) 1.25 GM/250 ML PIGGYBACK IV (23:09)
--- NOTE | 2024-09-02 23:36 | PC.NURSE ---
Called pts and received consent for procedure tomorrow.
[2024-09-03] VITALS (7 sets, daily range): BP systolic 124–164; BP diastolic 52–87; PULSE 60–100; RESP 16–18; TEMP 36.3–37.2; O2SAT 91–100; BMI 25.4
[2024-09-03 03:51] LABS: Vancomycin,Peak 21.5 ug/ml (11-39)
[2024-09-03] MEDS: DEXTROSE IV ×2 (08:20→20:04)
[2024-09-03] MEDS: DIVALPROEX 250MG (Delayed-Release) TABLET 250 MG PO ×3 (08:20→23:00)
[2024-09-03] MEDS: FOLIC ACID 1MG TABLET 1 MG PO (08:20)
[2024-09-03] MEDS: ENOXAPARIN 40MG/0.4ML SYRINGE 40 MG SUBCUT (08:20)
[2024-09-03] MEDS: WATER IV ×2 (08:20→20:04)
[2024-09-03] MEDS: TRIMETHOPRIM IV ×2 (08:20→20:04)
[2024-09-03] MEDS: buPROPion HCl SR 150MG TAB 150 MG PO (08:20)
[2024-09-03] MEDS: SULFAMETHOXAZOLE IV ×2 (08:20→20:04)
[2024-09-03] MEDS: DOCUSATE SODIUM 100 MG CAPSULE PO (08:20)
[2024-09-03] MEDS: ROPINIROLE 1MG TABLET 1 MG PO ×2 (08:20→23:01)
--- NOTE | 2024-09-03 08:31 | EXP.PHA.PN ---
Subjective *Date: 09/03/24 *Time: 08:31 Medical Exam Vital signs and Labs for Last 24 Hours: Vital Signs Temp Pulse Pulse Resp BP Pulse Ox O2 Del Method 09/03/24 06:45 Room Air 09/03/24 05:00 Room Air 09/03/24 04:00 60 09/03/24 04:00 97.4 F L 65 16 124/52 L 91 L Room Air 09/03/24 03:00 Room Air 09/03/24 00:58 98.9 F 90 16 143/81 H 96 Room Air 09/03/24 00:53 Room Air 09/03/24 00:00 85 09/02/24 23:00 Room Air 09/02/24 21:00 Room Air 09/02/24 20:00 85 09/02/24 20:00 Room Air 09/02/24 20:00 97.6 F 90 18 160/73 H 96 Room Air 09/02/24 18:22 Room Air 09/02/24 17:00 Room Air 09/02/24 16:00 80 09/02/24 15:00 Room Air 09/02/24 13:00 Room Air 09/02/24 12:00 82 09/02/24 11:46 98.5 F 82 18 146/69 H 91 L Room Air 09/02/24 11:00 Room Air 09/02/24 09:00 Room Air Intake and Output 09/02/24 09/03/24 09/03/24 23:59 07:59 15:59 Intake Total 744 / 4020 900 / 900 Output Total 500 / 500 Balance 744 / 2220 400 / 400 Intake: Intake, Oral Amount 100 / 100 Intake, Other Amount 400 / 400 Intake, Total IV Amount 344 / 3280 800 / 800 0.9 % Sodium Chloride 1000ML 1, 344 / 2190 200 / 200 000 ml @ 75 mls/hr IV .[id number] MARIA M Rx#:[id number] Ceftriaxone Sodium 2 gm In 0.9 100 / 100 % Sodium Chloride 100 ml @ 200 mls/hr IV Q12H MARIA M Rx#:[id number] Sulfamethoxazole/Trimethoprim 250 / 250 20 ml In Dextrose 5 % in Water 250 ml @ 180 mls/hr IV Q12H MARIA M Rx#:[id number] Vancomycin/Water For Inj (Peg) 250 / 250 1.25 gm In 250 ml @ 125 mls/hr IV Q24H [facility] Rx#:[id number] Output: Output, Urine Amount 500 / 500 Other: Number of Unmeasured Voids 0 Weight 55.111 kg Patient Weight 09/03/24 23:59 Weight 55.111 kg Laboratory Results - last 24 hr 09/02/24 07:25: Total Counted 100, Neutrophils % (Manual) 92 H, Lymphocytes % (Manual) 5 L, Monocytes % (Manual) 3, Platelet Estimate Normal, RBC Morphology Normal 09/02/24 09:50: PT 10.6, INR 0.94 09/02/24 11:20: ESR 96 H, C-Reactive Protein 112.1 H, Procalcitonin 0.102 09/02/24 13:00: Urine Opiates Screen Negative, Urine Methadone Screen Negative, Ur Barbituates Screen Negative, Ur Phencyclidine Scrn Negative, Ur Amphetamines Screen Negative, U Benzodiazepines Scrn Positive H, Urine Cocaine Screen Negative, U Marijuana (THC) Screen Negative 09/02/24 22:15: Vancomycin Trough 5.2 09/03/24 03:08: Vancomycin Peak 21.5 I & O for Labs for Last 24 Hours: Intake & Output 08/31/24 09/01/24 09/02/24 09/03/24 23:59 23:59 23:59 23:59 Intake Total 4970 / 4970 1003 / 1628 3120 / 4020 900 / 900 Output Total 2375 / 3325 1675 / 2075 1800 / 1800 500 / 500 Balance 2595 / 1645 -672 / -447 1320 / 2220 400 / 400 Weight 74.843 kg 53.388 kg 53.932 kg 55.111 kg Microbiology Reports for the Last 24 Hours: Microbiology 08/31/24 10:52 Urine,Clean Catch Urine Culture - Final No growth. The patient's infection will respond to the chosen ABx?: Yes Is the patient receiving the right drug, dose, and route?: Yes Could a more targeted ABx be ordered?: No (ALL CX NO GROWTH OF DOCUMENTATION)
[2024-09-03 08:43] LABS: Chloride 115 mmol/L (98-107); Potassium 3.6 mmoL/L (3.5-5.1); Sodium 145 mmol/L (136-145)
[2024-09-03 08:46] LABS: Anion Gap 12.6 mEq/L (5-15); Blood Urea Nitrogen 3 mg/dl (7-17); Calcium 8.4 mg/dl (8.4-10.2); Carbon Dioxide 21 mmol/L (22.0-30.0); Creatinine Clearance Estimated 49 mL/min (50-200); Estimated Glomerular Filt Rate 161 ml/min (>60); GFR (African American) 194 ML/MIN (>60); Glucose 69 mg/dl (74-100)
[2024-09-03 09:57] LABS: Basophils # 0.1 K/mm3 (0-0.2); Basophils % 0.7 % (0.1-2.0); Eosinophils # 0.3 K/mm3 (0.0-0.4); Eosinophils % 3.3 % (0.1-12.0); Hematocrit 31.9 % (37.0-47.0); Hemoglobin 10.1 g/dL (12.2-16.2); Lymphocytes # 1.5 K/mm3 (0.7-4.5); Lymphocytes % 18.4 % (10-50); MANUAL DIFFERENTIAL MANUAL DIFFERENTIAL (MANUAL DIFF); Mean Corpuscular HGB Conc 31.7 g/dL (31.8-35.4); Mean Corpuscular Hemoglobin 28.4 pg (27.0-31.2); Mean Corpuscular Volume 89.6 fl (81-99); Mean Platelet Volume 9.6 fl (7.4-10.4); Monocytes # 0.6 K/mm3 (0.1-1.0); Monocytes % 6.8 % (1.7-9.3); Neutrophils # 5.5 K/mm3 (1.8-7.8); Neutrophils % 67.4 % (37.0-80.0); Platelet Count 247 K/mm3 (142-424); Red Blood Count 3.56 M/mm3 (4.20-5.40); Red Cell Distribution Width 12.9 % (11.5-17.5); White Blood Count 8.2 K/mm3 (4.8-10.8)
[2024-09-03] MEDS: CEFTRIAXONE SODIUM 2 GM in 0.9 % SODIUM CHLORIDE 100 ML IV ×2 (10:09→23:00)
--- NOTE | 2024-09-03 10:09 | EXP.PHA.CONS ---
Pharmacy Consult Date: 09/03/24 Time: 10:09 Referring provider: DR. HOFFMAN Reason for Consult:: VANCOMCYIN LEVELS Allergies Allergy/AdvReac Type Severity Reaction Status Date / Time Penicillins (PENICILLINS) Allergy Unknown Verified 12/17/21 12:29 Home Medications ?Medication ?Instructions ?Recorded ?Confirmed ?Type diazepam 5 mg tablet 5 mg PO BIDP PRN Anxiety 12/17/21 08/31/24 History venlafaxine 150 mg 150 mg PO DAILY 12/17/21 08/31/24 History capsule,extended release 24 hr bupropion HCl 150 mg 24 hr tablet, 150 mg PO DAILY 08/31/24 08/31/24 History extended release divalproex 250 mg tablet,delayed 250 mg PO TID 08/31/24 08/31/24 History release loratadine 10 mg tablet 10 mg PO DAILY 08/31/24 08/31/24 History metformin 500 mg tablet,extended 500 mg PO DAILY 08/31/24 08/31/24 History release 24 hr ropinirole 1 mg tablet 1 mg PO BID 08/31/24 08/31/24 History rosuvastatin 10 mg tablet 10 mg PO HS 08/31/24 08/31/24 History venlafaxine 75 mg capsule,extended 75 mg PO DAILY 08/31/24 08/31/24 History release 24 hr New Prescriptions to Start Prescriptions: Height: 1.47 m Weight: 55.111 kg Laboratory Results:: Laboratory Results - last 24 hr 09/02/24 11:20: ESR 96 H, C-Reactive Protein 112.1 H, Procalcitonin 0.102 09/02/24 13:00: Urine Opiates Screen Negative, Urine Methadone Screen Negative, Ur Barbituates Screen Negative, Ur Phencyclidine Scrn Negative, Ur Amphetamines Screen Negative, U Benzodiazepines Scrn Positive H, Urine Cocaine Screen Negative, U Marijuana (THC) Screen Negative 09/02/24 22:15: Vancomycin Trough 5.2 09/03/24 03:08: Vancomycin Peak 21.5 09/03/24 06:50: Sodium 145, Potassium 3.6 D, Chloride 115 H, Carbon Dioxide 21 L, Anion Gap 12.6, BUN 3 L D, Creatinine 0.40 L D, Estimated Creat Clear 49, Estimated GFR 161, Est GFR ( Amer) 194 D, Glucose 69 L D, Calcium 8.4 09/03/24 09:51: WBC 8.2 D, RBC 3.56 L, Hgb 10.1 L, Hct 31.9 L, MCV 89.6, MCH 28.4, MCHC 31.7 L, RDW 12.9, Plt Count 247, MPV 9.6, Neut % (Auto) 67.4, Lymph % (Auto) 18.4, [place] % (Auto) 6.8, Eos % (Auto) 3.3, Baso % (Auto) 0.7, Neut # (Auto) 5.5, Lymph # (Auto) 1.5, [place] # (Auto) 0.6, Eos # (Auto) 0.3, Baso # (Auto) 0.1 Medical History: Medical History (Updated 09/02/24 @ 13:23 by Aramis Hoffman MD) URI (upper respiratory infection) Mild acid reflux Seasonal allergies Abdominal pain GERD (gastroesophageal reflux disease) Sinusitis Cough Shoulder pain, left FH: total abdominal hysterectomy and bilateral salpingo-oophorectomy Anxiety Bladder leak Acute metabolic encephalopathy Hallucinations, visual Assessment and Plan Assessment and plan all Dx Assessment and Plan for all problems:: Pharmacokinetic dosing service Weight: 55 Kilograms Vancomycin single level analysis: Current dose being given: 1250 mg Current dosing interval: 24 hrs Current infusion time (hrs): 2 Single level Trough Data: Trough level obtained: 5.2 mcg/ml Timing of trough - # of hrs before next dose: 0.5 Hrs Desired peak: 35 mcg/ml Desired trough: 15 mcg/ml Estimated PK Parameters: New rate constant (jerson): 0.079 hr-1 Half-life: 8.77 Hours Vd from levels: 44.00 Liters (0.7 L/kg) CLvanco=?? 3.476 L/hr Estimated New Dose and Interval Recommended dose: 1054.4 mg Recommended interval: 12.7 Hrs Recommendations: Give Vancomycin 1000 mg q 12 hrs. Infuse over 2 hrs Expected Cpeak: 34.3 mcg/mL Expected Ctrough: 15.6 mcg/mL AUC 0-24 /HARRISON Data: HARRISON 0.5 mcg/mL:?? AUC/HARRISON:? 1150.7 HARRISON 1.0 mcg/mL:?? AUC/HARRISON:? 575.4
[2024-09-03 10:13] LABS: INR 0.94 (0.9-1.1); Prothrombin Time 10.6 seconds (10.1-12.5)
[2024-09-03 10:29] LABS: Glucose,CSF 50 mg/dl (40-70)
--- NOTE | 2024-09-03 10:35 | SW/DCPLANNER ---
Addendum entered by [facility] 09/05/24 10:14: I have updated Evonne w/ [facility] that patient will discharge today. Addendum entered by [facility] 09/05/24 09:54: [facility]. Addendum entered by [facility] 09/04/24 15:53: Per Roxanna rocha/ [facility] they can accept this patient [facility] level of care tomorrow. Addendum entered by [facility] 09/04/24 14:08: Roxanna rocha/ [facility] stated that precert will be started today. Addendum entered by [facility] 09/04/24 13:32: Information also faxed to [facility]. Addendum entered by [facility] 09/04/24 13:23: I spoke w/ patient and her regarding plans once medically stable for discharge. PT/OT evaluated patient and recommend placement at this time. Patient and are agreeable to placement. I did explain that patient would need a Medicaid bed and all this entails. I also explained to patient and that if placement can not be established then we may have to consider home w/ home health services. Patient is agreeable to placement w/ no preference. Patient information will be faxed to [facility], [facility] and [facility]. Per MD patient could be ready for discharge tomorrow pending no setbacks. Original Note: I attempted to contact patient's regarding discharge plans: no answer and VM full. PT recommended placement at this time. I will continue trying to make contact with patient's regarding discharge plans. Discharge date is unknown at this time.
[2024-09-03] MEDS: VANCOMYCIN HCL 1,000 MG in 0.9 % SODIUM CHLORIDE 250 ML 125 MG IV ×2 (11:02→23:24)
[2024-09-03 11:16] LABS: Appearance,CSF Clear (Clear); Volume,CSF 5 mL
[2024-09-03 11:17] LABS: Red Blood Cell,CSF 164 cells/uL (0); White Blood Cell,CSF 0 cells/uL (0-5)
--- NOTE | 2024-09-03 11:19 | HMH.OTEV ---
OT Inpatient Evaluation Rehab OT IP Evaluation Start: 09/01/24 10:31 Freq: ONCE Status: Active Protocol: Document 09/03/24 11:14 GIACOMO (Rec: 09/03/24 11:19 [facility] [id number]) Rehab OT IP Assessment Subjective History Pt unable to provide any information about orientation. When asked what her name was pt reports her name is daisha. Per H&P: This 63-year-old female has a long history of mental health issues. Being bipolar she has been kept on lithium for quite some times., She had progressively gotten worse lithium needing to be increased. Until it reached the level of toxicity and has been stopped. The patient was seen in the emergency room on 08/19/2024, and was to follow -up with Barrera Salazar. Patient has been brought back to the emergency room today by her . For increasing psychosis the bipolar disorder she is having headaches GERD hypertension hyperlipidemia now with altered mental status and increased white count. Labs remarkable for significantly elevated white count. Elevated H&H, and increasingly high PT/INR with no history of anticoagulation except for aspirin. Patient also noted is having some ST depressions and T wave inversions V2 through V6. Radiology studies did not find any source of infection. But patient was started on vancomycin and other empiric antibiotics. Labs do indicate dehydration and hemoconcentration with potential overlapping sepsis. Patient was excepted by the daytime provider and brought to the floor, I was then able to examine the patient. She is now sleeping comfortably did not really wake up much while I was examining her. Showing no significant signs distress skin [place] warm and dry please see rest of evaluation and exam below Subjective Pt unable to provide any information about previous level of functioning. No family present to assist. Objective Bed Mobility bed mobility-scooting,bed mobility - supine/sit Assist Level Maximum x 2 (75% assist) Rehab OT IP prob,goals,plan Problems Date of Evaluation: 09/03/24 OT IP Problems Bed Mobility,Transfers,Balance ,Self care,Safety Rehab Potential Rehab Potential Good Equipment Needs Assistive Devices Rolling / Wheeled Walker Plan OT intervention Plan Bed Mobility,Transfers,Balance ,Self care,Safety,Therapeutic Exercise OT Plan Frequency Daily Duration LOS Discharge Goals Bed Mobility Ability Assistance x1 Sit to Stand Chair Transfer Ability Maximum x 1 (75% assist) Chair Transfer Ability Maximum x 1 (75% assist) Chair Transfer Technique Sit to/from Ambulatory Chair Transfer Assistive Devices Rolling Walker Feeding Ability Assist with Tray Set Up Lower Body Dressing Ability Moderate Assistance Upper Body Dressing Ability Minimal Assistance Bathing Ability Maximum Assistance Performing Toilet Hygiene Ability Maximum Assistance Overall Commode/Toilet Transfer Ability Maximum Assistance Commode/Toilet Transfer Technique Sit to/from Ambulatory Commode/Toilet Transfer Assistive Grab Bars Devices Oral Care Assist Moderate Assistance Decrease in Endurance Yes Discharge Plan OT Discharge Plan Pt will continue to be seen for OT services while at [facility]. Pt would benefit most from short term rehab at SNF following discharge from hospital. Continued skilled therapy is important in order for patient to improve strength, safety, endurance, ADL independence, and functional transfers to reach PLOF. Eval Complexity Eval Charge Codes 51679 - Moderate Complexity PHYSICIAN CERTIFICATION: I certify the specified therapy services for Som Ruth are required, authorized, and reviewed every 30 days.
[2024-09-03] MEDS: POLYETHYLENE GLYCOL 3350 17 GM PACKET PO (11:35)
[2024-09-03 11:37] LABS: Appearance,CSF Clear (Clear); Red Blood Cell,CSF 3 cells/uL (0); Volume,CSF 5 mL; White Blood Cell,CSF 0 cells/uL (0-5)
[2024-09-03 12:44] LABS: Eosinophils % 3 % (0-3); Lymphocytes % 16 % (10-50); Monocytes % 10 % (2-9); Neutrophils % 67 % (42-76); Promyelocytes % 1 %; Total Cells Counted 100
[2024-09-03 12:46] LABS: Platelet Estimate Normal; RBC Morphology Normal
--- NOTE | 2024-09-03 13:18 | PC.NURSE ---
Horner removed and purewick in place
[2024-09-03 14:04] LABS: Mononuclear WBCs,CSF 34 %; Polynuclear WBCs,CSF 66 %
[2024-09-03] MEDS: ATORVASTATIN 40MG TABLET 40 MG PO (23:00)
[2024-09-03] MEDS: PANTOPRAZOLE 40MG TABLET 40 MG PO (23:03)
[2024-09-04] VITALS (7 sets, daily range): BP systolic 151–165; BP diastolic 58–97; PULSE 66–120; RESP 16–20; TEMP 36.3–37; O2SAT 91–99; BMI 25.0
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
[2024-09-04 03:53] LABS: Anti-DNase B Strep Antibodies <78 U/mL (0-120)
[2024-09-04 07:12] LABS: MANUAL DIFFERENTIAL MANUAL DIFFERENTIAL (MANUAL DIFF)
[2024-09-04 07:24] LABS: Basophils # 0.1 K/mm3 (0-0.2); Eosinophils # 0.3 K/mm3 (0.0-0.4); Hematocrit 33.6 % (37.0-47.0); Hemoglobin 10.7 g/dL (12.2-16.2); Lymphocytes # 1.6 K/mm3 (0.7-4.5); Lymphocytes % 25.9 % (10-50); Mean Corpuscular HGB Conc 31.8 g/dL (31.8-35.4); Mean Platelet Volume 9.5 fl (7.4-10.4); Monocytes # 0.6 K/mm3 (0.1-1.0); Monocytes % 10.1 % (1.7-9.3); Neutrophils # 3.4 K/mm3 (1.8-7.8); Neutrophils % 54.6 % (37.0-80.0); Platelet Count 266 K/mm3 (142-424); Red Blood Count 3.82 M/mm3 (4.20-5.40); Red Cell Distribution Width 13.1 % (11.5-17.5); White Blood Count 6.2 K/mm3 (4.8-10.8)
[2024-09-04 07:32] LABS: Anion Gap 10.1 mEq/L (5-15); Blood Urea Nitrogen 2 mg/dl (7-17); Calcium 8.6 mg/dl (8.4-10.2); Carbon Dioxide 24 mmol/L (22.0-30.0); Chloride 113 mmol/L (98-107); Creatinine Clearance Estimated 49 mL/min (50-200); Estimated Glomerular Filt Rate 124 ml/min (>60); GFR (African American) 150 ML/MIN (>60); Glucose 84 mg/dl (74-100); Potassium 3.1 mmoL/L (3.5-5.1); Sodium 144 mmol/L (136-145)
--- NOTE | 2024-09-04 07:35 | PC.NURSE ---
Pt. is alert to name and sometimes birthday. She is on room air. Pt. very agitated at times. trying to climb out of the bed, or sliding down in a recliner chair. Pt is up x 2 assist. when patient stands up she lets herself go limp.Pt. muttering all night about random things, also swears a lot. Pt. getting IV antibiotics. VSS. Personal items and call dixon in reach.
[2024-09-04 07:46] LABS: Lymphocytes % 38 % (10-50); Monocytes % 3 % (2-9); Neutrophils % 59 % (42-76); Platelet Estimate Normal; RBC Morphology Normal; Total Cells Counted 100
[2024-09-04] MEDS: CEFTRIAXONE SODIUM 2 GM in 0.9 % SODIUM CHLORIDE 100 ML IV ×2 (09:38→21:09)
[2024-09-04] MEDS: FOLIC ACID 1MG TABLET 1 MG PO (09:39)
[2024-09-04] MEDS: KCl 10mEq/100ml 100 ML 100 MEQ IV (09:39)
[2024-09-04] MEDS: DOCUSATE SODIUM 100 MG CAPSULE PO (09:39)
[2024-09-04] MEDS: ENOXAPARIN 40MG/0.4ML SYRINGE 40 MG SUBCUT (09:39)
[2024-09-04] MEDS: buPROPion HCl SR 150MG TAB 150 MG PO (09:39)
[2024-09-04] MEDS: DIVALPROEX 250MG (Delayed-Release) TABLET 250 MG PO ×3 (09:39→21:09)
[2024-09-04] MEDS: POLYETHYLENE GLYCOL 3350 17 GM PACKET PO (09:39)
[2024-09-04] MEDS: ROPINIROLE 1MG TABLET 1 MG PO ×2 (09:40→21:09)
[2024-09-04 10:21] LABS: Vancomycin,Trough 13.8 ug/mL (5.0-10.0)
[2024-09-04 10:23] LABS: INR 0.91 (0.9-1.1); Prothrombin Time 10.3 seconds (10.1-12.5)
[2024-09-04] MEDS: BISACODYL 10MG SUPP 10 MG RC (12:08)
[2024-09-04] MEDS: VANCOMYCIN HCL 1,000 MG in 0.9 % SODIUM CHLORIDE 250 ML 125 MG IV (12:08)
--- NOTE | 2024-09-04 12:12 | EXP.PHA.CONS ---
Pharmacy Consult Date: 09/04/24 Time: 12:12 Referring provider: DR. HOFFMAN Reason for Consult:: VANCOMYCIN LEVEL Allergies Allergy/AdvReac Type Severity Reaction Status Date / Time Penicillins (PENICILLINS) Allergy Unknown Verified 12/17/21 12:29 Home Medications ?Medication ?Instructions ?Recorded ?Confirmed ?Type diazepam 5 mg tablet 5 mg PO BIDP PRN Anxiety 12/17/21 08/31/24 History venlafaxine 150 mg 150 mg PO DAILY 12/17/21 08/31/24 History capsule,extended release 24 hr bupropion HCl 150 mg 24 hr tablet, 150 mg PO DAILY 08/31/24 08/31/24 History extended release divalproex 250 mg tablet,delayed 250 mg PO TID 08/31/24 08/31/24 History release loratadine 10 mg tablet 10 mg PO DAILY 08/31/24 08/31/24 History metformin 500 mg tablet,extended 500 mg PO DAILY 08/31/24 08/31/24 History release 24 hr ropinirole 1 mg tablet 1 mg PO BID 08/31/24 08/31/24 History rosuvastatin 10 mg tablet 10 mg PO HS 08/31/24 08/31/24 History venlafaxine 75 mg capsule,extended 75 mg PO DAILY 08/31/24 08/31/24 History release 24 hr New Prescriptions to Start Prescriptions: Height: 1.47 m Weight: 54.114 kg Laboratory Results:: Laboratory Results - last 24 hr 09/01/24 07:38: Anti-DNase B (Strep) <78 09/03/24 09:51: Total Counted 100, Neutrophils % (Manual) 67, Band Neutrophils % 3.0, Lymphocytes % (Manual) 16, Monocytes % (Manual) 10 H, Eosinophils % (Manual) 3, Promyelocytes % 1, Platelet Estimate Normal, RBC Morphology Normal 09/03/24 10:00: CSF Volume 5 09/03/24 10:00: CSF Volume 5, CSF Appearance Clear 09/03/24 10:00: CSF Appearance Clear, CSF WBC 0 09/03/24 10:00: CSF WBC 0, CSF RBC 164 09/03/24 10:00: CSF RBC 3, CSF Mononuclear WBCs % 34 09/03/24 10:00: CSF Mononuclear WBCs % TNP, CSF Polynuclear WBCs % 66 09/03/24 10:00: CSF Polynuclear WBCs % TNP 09/04/24 07:00: WBC 6.2, RBC 3.82 L, Hgb 10.7 L, Hct 33.6 L, MCV 88.0, MCH 28.0, MCHC 31.8, RDW 13.1, Plt Count 266, MPV 9.5, Neut % (Auto) 54.6, Lymph % (Auto) 25.9, [place] % (Auto) 10.1 H, Eos % (Auto) 5.0, Baso % (Auto) 1.0, Neut # (Auto) 3.4, Lymph # (Auto) 1.6, [place] # (Auto) 0.6, Eos # (Auto) 0.3, Baso # (Auto) 0.1, Total Counted 100, Neutrophils % (Manual) 59, Lymphocytes % (Manual) 38, Monocytes % (Manual) 3, Platelet Estimate Normal, RBC Morphology Normal, Sodium 144, Potassium 3.1 L, Chloride 113 H, Carbon Dioxide 24, Anion Gap 10.1, BUN 2 L D, Creatinine 0.50 L D, Estimated Creat Clear 49, Estimated GFR 124, Est GFR ( Amer) 150 D, Glucose 84, Calcium 8.6 09/04/24 09:53: PT 10.3, INR 0.91, Vancomycin Trough 13.8 H Medical History: Medical History (Updated 09/02/24 @ 13:23 by Aramis Hoffman MD) URI (upper respiratory infection) Mild acid reflux Seasonal allergies Abdominal pain GERD (gastroesophageal reflux disease) Sinusitis Cough Shoulder pain, left FH: total abdominal hysterectomy and bilateral salpingo-oophorectomy Anxiety Bladder leak Acute metabolic encephalopathy Hallucinations, visual Assessment and Plan Assessment and plan all Dx Assessment and Plan for all problems:: PATIENT'S VANCOMYCIN TROUGH LEVE WAS 13.8 MCG/ML THIS AM. RECOMMEND CONTINUING WITH VANCOMYCIN 1000 MG Q12H AT THIS TIME.
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
--- NOTE | 2024-09-04 13:24 | PC.NURSE ---
PT IS REFUSING TO TAKE PO POTASSIUM AND HAS REFUSED IV POTASSIUM.
[2024-09-04] MEDS: SULFAMETHOXAZOLE IV ×2 (14:49→21:45)
[2024-09-04] MEDS: DEXTROSE IV ×2 (14:49→21:45)
[2024-09-04] MEDS: WATER IV ×2 (14:49→21:45)
[2024-09-04] MEDS: TRIMETHOPRIM IV ×2 (14:49→21:45)
[2024-09-04] MEDS: ATORVASTATIN 40MG TABLET 40 MG PO (21:09)
[2024-09-04] MEDS: PANTOPRAZOLE 40MG TABLET 40 MG PO (21:09)
[2024-09-05] VITALS: BP 162/76; PULSE 100; PULSE 71; RESP 18; TEMP 36.9; O2SAT 93
[2024-09-05] MEDS: VANCOMYCIN HCL 1,000 MG in 0.9 % SODIUM CHLORIDE 250 ML 125 MG IV ×2 (00:51→12:06)
[2024-09-05 04:00] VITALS: BP 155/66; PULSE 80; PULSE 81; RESP 16; TEMP 36.9; O2SAT 98; BMI 25.0
--- NOTE | 2024-09-05 05:18 | PC.NURSE ---
Alert to self only. Room air. Purewick. Patient pulled out IV, new one placed after multiple attempts from this RN and liyah Amado. Patient noncompliant to IV, Mitts were applied during IV infusions, but since has been taken off. Patient shouts and expresses profanity. IV antibiotics. Bed alarm on. Call light in reach.
[2024-09-05 07:04] LABS: Basophils # 0.1 K/mm3 (0-0.2); Basophils % 1.5 % (0.1-2.0); Eosinophils # 0.4 K/mm3 (0.0-0.4); Eosinophils % 5.9 % (0.1-12.0); Hematocrit 38.5 % (37.0-47.0); Lymphocytes # 1.6 K/mm3 (0.7-4.5); Lymphocytes % 22.9 % (10-50); Mean Corpuscular HGB Conc 31.2 g/dL (31.8-35.4); Mean Corpuscular Hemoglobin 28.8 pg (27.0-31.2); Mean Corpuscular Volume 92.3 fl (81-99); Monocytes % 14.7 % (1.7-9.3); Neutrophils # 3.5 K/mm3 (1.8-7.8); Neutrophils % 51.8 % (37.0-80.0); Platelet Count 236 K/mm3 (142-424); Red Blood Count 4.17 M/mm3 (4.20-5.40); Red Cell Distribution Width 13.2 % (11.5-17.5); White Blood Count 6.8 K/mm3 (4.8-10.8)
[2024-09-05 07:22] LABS: Alanine Aminotransferase 32 U/L (12-78); Albumin/Globulin Ratio 1.2 (1.1-1.8); Alkaline Phosphatase 133 U/L (38-126); Anion Gap 11.3 mEq/L (5-15); Aspartate Amino Transferase 55 U/L (14-36); Bilirubin,Total 0.4 mg/dl (0.2-1.3); Calcium 8.7 mg/dl (8.4-10.2); Carbon Dioxide 21 mmol/L (22.0-30.0); Chloride 113 mmol/L (98-107); Creatinine Clearance Estimated 49 mL/min (50-200); Estimated Glomerular Filt Rate 124 ml/min (>60); GFR (African American) 150 ML/MIN (>60); Globulin 2.6 g/dL (1.3-3.2); Glucose 79 mg/dl (74-100); Magnesium 1.9 mg/dl (1.6-2.3); Potassium 3.3 mmoL/L (3.5-5.1); Sodium 142 mmol/L (136-145); Total Protein,Serum 5.6 g/dl (6.3-8.2)
[2024-09-05 07:25] LABS: Blood Urea Nitrogen < 2 mg/dl (7-17)
--- NOTE | 2024-09-05 07:54 | P.PN_ITS ---
Subjective *Date: 09/05/24 *Time: 07:54 Medical Exam Vital signs and Labs for Last 24 Hours: Vital Signs Temp Pulse Pulse Resp BP Pulse Ox O2 Del Method 09/05/24 06:58 Room Air 09/05/24 05:00 Room Air 09/05/24 04:00 98.4 F 81 16 155/66 H 98 Room Air 09/05/24 04:00 80 09/05/24 03:00 Room Air 09/05/24 01:00 Room Air 09/05/24 00:00 98.5 F 71 18 162/76 H 93 L Room Air 09/05/24 00:00 100 H 09/04/24 23:00 Room Air 09/04/24 21:00 Room Air 09/04/24 20:00 Room Air 09/04/24 20:00 120 H 09/04/24 20:00 98.6 F 116 H 20 165/78 H 99 Room Air 09/04/24 19:00 Room Air 09/04/24 17:00 Room Air 09/04/24 16:00 99 H 09/04/24 16:00 94 H 18 151/58 H 98 Room Air 09/04/24 15:00 Room Air 09/04/24 13:00 Room Air 09/04/24 12:01 80 09/04/24 12:00 77 152/97 H 98 Room Air 09/04/24 11:00 Room Air 09/04/24 09:00 Room Air 09/04/24 08:00 Room Air 09/04/24 08:00 70 09/04/24 08:00 97.7 F 72 20 160/78 H 97 Room Air Intake and Output 09/04/24 09/04/24 09/05/24 15:59 23:59 07:59 Intake Total 540 / 1620 230 / 1620 850 / 850 Output Total 0 / 500 0 / 0 Balance 540 / 1120 230 / 1120 850 / 850 Intake: Intake, Oral Amount 440 / 740 300 / 300 Intake, Total IV Amount 100 / 880 230 / 880 550 / 550 Ceftriaxone 1 gm 1 gm In 0.9 % 50 / 50 Sodium Chloride 50 ml @ 100 mls /hr IV Q24H [facility]IA M Rx#:[id number] KCl 10mEq/100ml 100 ml @ 100 100 / 100 mls/hr IV Q1H MARIA M Rx#:[id number] Sulfamethoxazole/Trimethoprim 230 / 480 250 / 250 20 ml In Dextrose 5 % in Water 250 ml @ 180 mls/hr IV Q12H [facility] Rx#:[id number] Vancomycin HCl 1,000 mg In 0.9 250 / 250 % Sodium Chloride 250 ml @ 125 mls/hr IV Q12H [facility] Rx#:[id number] Output: Output, Urine Amount 0 / 500 0 / 0 Other: Number of Unmeasured Voids 1 1 Number of Bowel Movements 1 Weight 54.114 kg 54.114 kg Patient Weight 09/05/24 23:59 Weight 54.114 kg Laboratory Results - last 24 hr 09/04/24 09:53: PT 10.3, INR 0.91, Vancomycin Trough 13.8 H 09/05/24 06:44: WBC 6.8, RBC 4.17 L, Hgb 12.0 L D, Hct 38.5, MCV 92.3, MCH 28.8, MCHC 31.2 L, RDW 13.2, Plt Count 236, MPV 10.0, Neut % (Auto) 51.8, Lymph % (Auto) 22.9, [place] % (Auto) 14.7 H, Eos % (Auto) 5.9, Baso % (Auto) 1.5, Neut # (Auto) 3.5, Lymph # (Auto) 1.6, [place] # (Auto) 1.0, Eos # (Auto) 0.4, Baso # (Auto) 0.1, Sodium 142, Potassium 3.3 L, Chloride 113 H, Carbon Dioxide 21 L, Anion Gap 11.3, BUN < 2 L, Creatinine 0.50 L, Estimated Creat Clear 49, Estimated GFR 124, Est GFR ( Amer) 150, Glucose 79, Calcium 8.7, Magnesium 1.9, Total Bilirubin 0.4, AST 55 H, ALT 32 D, Alkaline Phosphatase 133 H, Total Protein 5.6 L, Albumin 3.0 L, Globulin 2.6, Albumin/Globulin Ratio 1.2 I & O for Labs for Last 24 Hours: Intake & Output 09/02/24 09/03/24 09/04/24 09/05/24 23:59 23:59 23:59 23:59 Intake Total 3120 / 4020 1150 / 1150 770 / 1620 850 / 850 Output Total 1800 / 1800 500 / 1000 500 / 500 0 / 0 Balance 1320 / 2220 650 / 150 270 / 1120 850 / 850 Weight 53.932 kg 55.11 kg 54.114 kg 54.114 kg Microbiology Reports for the Last 24 Hours: Microbiology 08/30/24 16:20 Blood Blood Culture - Final NO GROWTH AFTER 5 DAYS 08/30/24 16:20 Blood Blood Culture - Final NO GROWTH AFTER 5 DAYS 09/03/24 10:00 Cerebral Spinal Fluid CSF Culture - Preliminary NO GROWTH AFTER 24 HOURS The patient's infection will respond to the chosen ABx?: Yes (CSF CX = NO GROWTH AT 24 HRS, URINE/BLOOD CX NO GROWTH, AFEBRILE OVER 24 HR) Is the patient receiving the right drug, dose, and route?: Yes Could a more targeted ABx be ordered?: No How long ABx needed (days)?: 14 (BACTRIM DURATION IF TREATING FOR SUSPECTED MENINGITIS, 7-21 DAYS FOR ROCEPHIN.)
[2024-09-05 08:00] VITALS: BP 126/60; PULSE 64; PULSE 70; RESP 16; TEMP 36.6; O2SAT 95
[2024-09-05] MEDS: SULFAMETHOXAZOLE IV (08:42)
[2024-09-05] MEDS: WATER IV (08:42)
[2024-09-05] MEDS: TRIMETHOPRIM IV (08:42)
[2024-09-05] MEDS: DEXTROSE IV (08:42)
[2024-09-05] MEDS: FOLIC ACID 1MG TABLET 1 MG PO (08:43)
[2024-09-05] MEDS: buPROPion HCl SR 150MG TAB 150 MG PO (08:43)
[2024-09-05] MEDS: POLYETHYLENE GLYCOL 3350 17 GM PACKET PO (08:43)
[2024-09-05] MEDS: ROPINIROLE 1MG TABLET 1 MG PO (08:43)
[2024-09-05] MEDS: DIVALPROEX 250MG (Delayed-Release) TABLET 250 MG PO (08:43)
[2024-09-05] MEDS: DOCUSATE SODIUM 100 MG CAPSULE PO (08:43)
[2024-09-05] MEDS: POTASSIUM CHLORIDE 20MEQ TAB 40 MEQ PO ×2 (08:46→12:34)
[2024-09-05] MEDS: CEFTRIAXONE SODIUM 2 GM in 0.9 % SODIUM CHLORIDE 100 ML IV (10:23)
[2024-09-05] MEDS: VENLAFAXINE 37.5MG TABLET 75 MG PO (10:24)
[2024-09-05] MEDS: VENLAFAXINE XR 75MG CAPSULE 150 MG PO (10:24)
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
[2024-09-05] MEDS: MAGNESIUM SULFATE IN WATER 2 GM/50 ML PIGGYBACK IV (11:02)
[2024-09-05 12:00] VITALS: BP 161/69; PULSE 90; PULSE 97; RESP 16; TEMP 36.6; O2SAT 98
[2024-09-05] MEDS: DIVALPROEX 250MG (Delayed-Release) TABLET 500 MG PO (12:34)
--- NOTE | 2024-09-05 13:03 | PC.NURSE ---
[facility] Iv removed.
[2024-09-05 15:13] LABS: Albumin, CSF 10 mg/dL (8-37)
[2024-09-07 08:14] LABS: Enterovirus,CSF PCR Negative (Negative)
[2024-09-07 15:29] LABS: CSF Lyme (B. burgdorferi) PCR Negative (Negative)
[2024-09-07 19:19] LABS: CAP Mandated Reflex to Culture Not Indicated (.); Cryptococcus Antigen, CSF Negative (Negative)
[2024-09-10 09:37] LABS: Free Valproic Acid (Depakote) 27.9
[2024-09-10 13:10] LABS: Epstein-Barr Virus CSF/WB PCR Negative (Negative)
== END 2024-09-05 14:30 ==
LOC: ER 15:59 → 2ND 18:45
PROVIDERS: Internal Medicine Adolescent Medicine; Nurse Practitioner Family; Admitting Provider Student in an Organized Health Care Education/Training Program; Emergency Provider Emergency Medicine; PCP Nurse Practitioner; Visit Provider Student in an Organized Health Care Education/Training Program
DX: A41.9 Sepsis, unspecified organism (principal); R65.20 Severe sepsis without septic shock; G93.41 Metabolic encephalopathy; K21.9 Gastro-esophageal reflux disease without esophagitis; F31.9 Bipolar disorder, unspecified; F06.1 Catatonic disorder due to known physiological condition; I10 Essential (primary) hypertension; R44.1 Visual hallucinations; E78.5 Hyperlipidemia, unspecified; Z87.891 Personal history of nicotine dependence; Z79.899 Other long term (current) drug therapy; Z79.82 Long term (current) use of aspirin
CPT/HCPCS: 62270; 36415; 70450; 70496; 70498; 71045; 71275; 74174; 80048; 80050; 80053; 80165; 80178; 80202; 80307; 80320; 80329; 81001; 82042; 82140; 82550; 82570; 82607; 82728; 82746; 82803; 82945; 83540; 83550; 83605; 83690; 83735; 84145; 84155; 84436; 84443; 84540; 85007; 85014; 85018; 85025; 85027; 85048; 85049; 85610; 85651; 85730; 86140; 86215; 87040; 87070; 87086; 87205; 87265; 87476; 87498; 87529; 87631; 87899; 89051; 93005; 97162; 97166; 97530; 99291; G0378; G0480; J0696; J1650; J2060; J2405; J3370; J3372; J3411; J3430; J3475; J3480; J7030; J7050; J7060; J7120; Q9967

== ENCOUNTER 2024-11-10 10:13 | Emergency (ER) | payer MEDICARE, OTHER, SELFPAY ==
[2024-11-10 10:22] VITALS: BP 148/85; PULSE 108; O2SAT 96
[2024-11-10 10:25] VITALS: BP 148/85; PULSE 106; RESP 15; TEMP 36.7; O2SAT 94; BMI 26.1
[2024-11-10 10:49] LABS: Albumin Level 4.2 g/dl (3.5-5.0); Basophils # 0.1 K/mm3 (0-0.2); Basophils % 0.6 % (0.1-2.0); Chloride 107 mmol/L (98-107); Eosinophils # 0.2 K/mm3 (0.0-0.4); Eosinophils % 2.3 % (0.1-12.0); Hematocrit 38.2 % (37.0-47.0); Hemoglobin 12.4 g/dL (12.2-16.2); Lymphocytes # 1.1 K/mm3 (0.7-4.5); Lymphocytes % 14.3 % (10-50); Mean Corpuscular HGB Conc 32.5 g/dL (31.8-35.4); Mean Corpuscular Hemoglobin 29.3 pg (27.0-31.2); Mean Corpuscular Volume 90.3 fl (81-99); Monocytes # 0.7 K/mm3 (0.1-1.0); Monocytes % 8.4 % (1.7-9.3); Neutrophils # 5.8 K/mm3 (1.8-7.8); Neutrophils % 73.9 % (37.0-80.0); Platelet Count 179 K/mm3 (142-424); Red Blood Count 4.23 M/mm3 (4.20-5.40); Red Cell Distribution Width 13.4 % (11.5-17.5); White Blood Count 7.8 K/mm3 (4.8-10.8)
[2024-11-10 10:50] LABS: Potassium 4.3 mmoL/L (3.5-5.1); Sodium 140 mmol/L (136-145)
[2024-11-10 10:52] LABS: Alanine Aminotransferase 31 U/L (12-78); Anion Gap 11.3 mEq/L (5-15); Aspartate Amino Transferase 44 U/L (14-36); Blood Urea Nitrogen 14 mg/dl (7-17); Carbon Dioxide 26 mmol/L (22.0-30.0); Creatinine Clearance Estimated 51 mL/min (50-200); Estimated Glomerular Filt Rate 84 ml/min (>60); GFR (African American) 102 ML/MIN (>60)
[2024-11-10 10:53] LABS: Albumin/Globulin Ratio 1.8 (1.1-1.8); Alkaline Phosphatase 83 U/L (38-126); Bilirubin,Total 0.3 mg/dl (0.2-1.3); Calcium 9.3 mg/dl (8.4-10.2); Globulin 2.4 g/dL (1.3-3.2); Glucose 117 mg/dl (74-100); Total Protein,Serum 6.6 g/dl (6.3-8.2)
[2024-11-10 10:58] VITALS: BP 167/73; PULSE 100; O2SAT 96
[2024-11-10 11:00] VITALS: BP 143/73; PULSE 97; O2SAT 97
[2024-11-10 11:05] LABS: Microscopic, Urine URINE MICROSCOPIC (MICROSCOPIC)
--- NOTE | 2024-11-10 11:07 | CT_ITS ---
PROCEDURE INFORMATION: Exam: CT Abdomen And Pelvis Without Contrast Exam date and time: 11/10/2024 11:35 AM Age: 63 years old Clinical indication: Abdominal pain; Additional info: Hematuria, pain TECHNIQUE: Imaging protocol: Computed tomography of the abdomen and pelvis without contrast. Radiation optimization: All CT scans at this facility use at least one of these dose optimization techniques: automated exposure control; mA and/or kV adjustment per patient size (includes targeted exams where dose is matched to clinical indication); or iterative reconstruction. COMPARISON: CT ANGIO ABDOMEN PELVIS 08/30/2024 4:55 PM FINDINGS: Liver: Normal. No mass. Gallbladder and biliary ducts: Previous cholecystectomy. Pancreas: Normal. No ductal dilation. Spleen: Normal. No splenomegaly. Adrenal glands: Normal. No mass. Kidneys and ureters: No obstructive uropathy or renal calculus. Stomach and bowel: Continued moderate stool retention in the proximal colon. Appendix: No evidence of appendicitis. Intraperitoneal space: Unremarkable. No free air. No significant fluid collection. Vasculature: Unremarkable. No abdominal aortic aneurysm. Lymph nodes: Unremarkable. No enlarged lymph nodes. Urinary bladder: Unremarkable as visualized. Reproductive: Unremarkable as visualized. Bones/joints: Broad disc bulge at L5-S1 extending 5 mm into the lumbar canal. Soft tissues: Unremarkable. IMPRESSION: 1. Continued moderate stool retention in the proximal colon. 2. No obstructive uropathy or renal calculus. 3. Broad disc bulge at L5-S1 extending 5 mm into the lumbar canal.
[2024-11-10 11:30] VITALS: BP 123/69; PULSE 97; O2SAT 96
--- NOTE | 2024-11-10 11:41 | HMH.EDGENADL ---
Discharge Plan Disposition Patient Disposition: Home, Self-Care Condition: Good Prescriptions Prescriptions: New sulfamethoxazole-trimethoprim [Bactrim DS] 800-160 mg tablet 1 tab PO BID 10 Days Qty: 20 0RF ondansetron 4 mg tablet,disintegrating 4 mg PO Q8H PRN (Reason: nausea and vomiting) 4 Days Qty: 12 0RF polyethylene glycol 3350 [Miralax] 17 gram/dose powder 17 g PO DAILY Qty: 510 0RF sennosides [Senna Lax] 8.6 mg tablet 8.6 mg PO HS PRN (Reason: constipation) Qty: 30 0RF No Action metformin 500 mg tablet extended release 24 hr 500 mg PO DAILY 30 Days Qty: 30 0RF Rx Instructions: take one tablet by mouth once daily with breakfast loratadine 10 mg tablet 10 mg PO DAILY 30 Days Qty: 30 0RF bupropion HCl 150 mg tablet extended release 24 hr 150 mg PO DAILY 30 Days Qty: 30 0RF polyethylene glycol 3350 [HealthyLax] 17 gram Powder In Packet 17 g PO DAILY 30 Days Qty: 30 0RF potassium chloride [Klor-Con M20] 20 mEq Tablet,Er Particles/Crystals 20 meq PO BID 30 Days Qty: 60 0RF venlafaxine 75 mg capsule,extended release 24hr 75 mg PO DAILY 30 Days Qty: 30 0RF ropinirole 1 mg tablet 1 mg PO BID 30 Days Qty: 60 0RF venlafaxine 150 mg capsule,extended release 24hr 150 mg PO DAILY 30 Days Qty: 30 0RF divalproex [Depakote ER] 250 mg Tablet Extended Release 24 Hr 500 mg PO TID 30 Days Qty: 180 0RF diazepam 5 mg tablet 5 mg PO BIDP PRN (Reason: Anxiety) 10 Days Qty: 20 0RF Rx Instructions: take 1-2 tablets by mouth Nightly as needed for anxiety Referrals Follow up/Referrals: Krista Neville APRN [Primary Care Provider] - See instructions Activity Restrictions/Add. Instructions Additional Instructions/Restrictions: You were evaluated in the emergency department today and diagnosed with constipation and a urinary tract infection. Please nut picker the prescriptions at the pharmacy and take them as prescribed. Follow-up closely with your primary care provider over the next 3 days for reassessment. Return to the emergency department for new or worsening symptoms. Clinical Impressions Clinical Impression: UTI (urinary tract infection), Constipation Instructions Patient Instructions: DI for Urinary Tract Infection (UTI), DI for Constipation Print Language Print Language: Citizen Of [place] Discharge ED Provider: Roxanna Baker General Adult HPI General Chief complaint: Urogenital-Female Stated complaint: blood in urine Time Seen by Provider: 11/10/24 10:40 Mode of Arrival: Ambulatory Source of Information: Patient Description of Symptoms (Recalled from ER Triage Doc. by RN): patient states she has been having frequent urination and burning with urination since may. today she had blood in her urine. History of Present Illness HPI narrative: This patient is a 63-year-old female with a history of bipolar disorder presenting to the emergency department for evaluation with concern for blood in her urine. Patient has had burning when she pee and has had to strain hard to pee s since May, and her care team thought it could be related to her medications. They have been taking her off of Depakote and instead putting her on ropinirole. Today, however, the patient has blood in her urine. She notes that she has some pressure in her lower abdomen and has some pain with urination, but denies any other concerns or complaints. No fevers, vomiting, or other issues noted. Related Data Previous Rx's ?Medication ?Instructions ?Recorded bupropion HCl 150 mg 24 hr tablet, 150 mg PO DAILY 30 days #30 tabs 09/05/24 extended release diazepam 5 mg tablet 5 mg PO BIDP PRN Anxiety 10 days 09/05/24 #20 tabs divalproex 250 mg tablet,extended 500 mg (2 x 250 mg) PO TID 30 days 09/05/24 release 24 hr (Depakote ER) #180 tabs loratadine 10 mg tablet 10 mg PO DAILY 30 days #30 tabs 09/05/24 metformin 500 mg tablet,extended 500 mg PO DAILY 30 days #30 tabs 09/05/24 release 24 hr polyethylene glycol 3350 17 gram 17 g PO DAILY 30 days #30 ea 09/05/24 oral powder packet (HealthyLax) potassium chloride 20 mEq 20 meq PO BID 30 days #60 tabs 09/05/24 tablet,extended release(part/cryst) (Klor-Con M) ropinirole 1 mg tablet 1 mg PO BID 30 days #60 tabs 09/05/24 venlafaxine 150 mg 150 mg PO DAILY 30 days #30 caps 09/05/24 capsule,extended release 24 hr venlafaxine 75 mg capsule,extended 75 mg PO DAILY 30 days #30 caps 09/05/24 release 24 hr ondansetron 4 mg disintegrating 4 mg PO Q8H PRN nausea and 11/10/24 tablet vomiting 4 days #12 tabs polyethylene glycol 3350 17 17 g PO DAILY #510 grams 11/10/24 gram/dose oral powder (Miralax) sennosides 8.6 mg tablet (Senna 8.6 mg PO HS PRN constipation #30 11/10/24 Lax) tabs sulfamethoxazole 800 1 tab PO BID 10 days #20 tabs 11/10/24 mg-trimethoprim 160 mg tablet (Bactrim DS) Allergies Allergy/AdvReac Type Severity Reaction Status Date / Time Penicillins (PENICILLINS) Allergy Unknown Verified 12/17/21 12:29 [facility] Disclaimer: The information contained in this section may have been updated after the patient was seen, as this information can be updated by other users. Medical History URI (upper respiratory infection) Mild acid reflux Seasonal allergies Abdominal pain GERD (gastroesophageal reflux disease) Sinusitis Cough Shoulder pain, left FH: total abdominal hysterectomy and bilateral salpingo-oophorectomy Anxiety Bladder leak Acute metabolic encephalopathy Hallucinations, visual Surgical History Hx of cholecystectomy History of appendectomy Social History Smoking Status: Never smoker smoking status stop date: 2022 alcohol intake: never substance use type: marijuana current occupational status: disabled Travel in the last 8 weeks: None household members: spouse housing: house number of children: 0 caffeine: Yes Have you lived/traveled outside [place] in past 30 days?: No Contact w/someone who lives/traveled outside [place] past 30 days?: No Exposure to someone with infectious disease in past 14 days?: No Do you have a fever (greater than 100.4 F or 38 C)?: No Have you tested positive for COVID-19: No Exposed to someone with COVID-19 in past 14 days?: No Do you have a sore throat?: No Do you have a cough?: No Do you have any weakness?: No Do you have any diarrhea?: No Are you experiencing any unusual bleeding?: No Do you have any muscle aches/pain?: No Do you have any abdominal pain?: No Are you experiencing loss of taste or smell?: No Other Medical History Have you received the Flu Vaccine for this season: No Have you received the Pneumonia Vaccine: No ROS Obtained: Yes All systems reviewed & no additional complaints except as documented Physical Exam General General appearance: alert and in no apparent distress Head Head exam: atraumatic and normocephalic Eye Eye exam: Present normal appearance, PERRL and EOMI ENT ENT exam: Present normal exam, normal oropharynx, mucous membranes moist and normal external ear exam Neck Neck exam: Present normal inspection, full ROM and trachea midline; Absent tenderness Chest Chest inspection: Present normal inspection and symmetric chest wall rise; Absent tenderness Respiratory Respiratory exam: Present normal lung sounds bilaterally; Absent respiratory distress, wheezes, stridor or accessory muscle use Cardiovascular Cardiovascular exam: Present regular rate and normal rhythm Abdominal Exam Abdominal exam: Present soft and tenderness (Suprapubic); Absent distention, guarding, rebound or rigidity Extremities Exam Extremities exam: Present normal inspection, full ROM and normal capillary refill; Absent tenderness or edema Back Exam Back exam: Present normal inspection and full ROM; Absent tenderness Neurological Exam Neurological exam: Present alert, oriented X3, CN II-XII intact and normal gait; Absent motor sensory deficit Psychiatric Psychiatric exam: Present normal affect and normal mood Skin Skin exam: Present warm and dry Medical Decision Making Medical Records Medical records reviewed: Yes I reviewed the patient's medical records. Screening: Per USPSTF and CDC recommendations, given the prevalence of disease in our region, it is our hospital?s policy to screen for HIV and viral Hepatitis for all patients aged 18 and over and those with ongoing risk factors. Jd Inquiry Pt receiving controlled substance: No Vital Signs: 11/10/24 10:22 11/10/24 10:25 11/10/24 10:58 Temperature 98.1 F Temperature Source Oral Pulse Rate 108 H 100 H Pulse Rate [Right] 106 H Respiratory Rate 15 Blood Pressure 148/85 H 167/73 H Blood Pressure [Right Arm] 148/85 H Blood Pressure Mean [Right Arm] 106 Blood Pressure Source [Right Arm] Automatic Cuff Blood Pressure Position [Right Arm] Sitting 02 Sat by Pulse Oximetry 96 94 L 96 Oxygen Delivery Method Room Air Room Air 11/10/24 11:00 11/10/24 11:30 11/10/24 12:51 Temperature 98.1 F Temperature Source Pulse Rate 97 H 97 H 96 H Pulse Rate [Right] Respiratory Rate 13 Blood Pressure 143/73 H 123/69 123/69 Blood Pressure [Right Arm] Blood Pressure Mean [Right Arm] Blood Pressure Source [Right Arm] Blood Pressure Position [Right Arm] 02 Sat by Pulse Oximetry 97 96 Oxygen Delivery Method Room Air Room Air Lab Data Lab results reviewed: Yes I reviewed the patient's lab results. Lab Results 11/10/24 10:28: WBC 7.8, RBC 4.23, Hgb 12.4, Hct 38.2, MCV 90.3, MCH 29.3, MCHC 32.5, RDW 13.4, Plt Count 179, MPV 10.0, Neut % (Auto) 73.9, Lymph % (Auto) 14.3, [place] % (Auto) 8.4, Eos % (Auto) 2.3, Baso % (Auto) 0.6, Neut # (Auto) 5.8, Lymph # (Auto) 1.1, [place] # (Auto) 0.7, Eos # (Auto) 0.2, Baso # (Auto) 0.1, Sodium 140, Potassium 4.3, Chloride 107, Carbon Dioxide 26, Anion Gap 11.3, BUN 14, Creatinine 0.70, Estimated Creat Clear 51, Estimated GFR 84, Est GFR ( Amer) 102, Glucose 117 H, Calcium 9.3, Total Bilirubin 0.3, AST 44 H, ALT 31, Alkaline Phosphatase 83, Total Protein 6.6, Albumin 4.2, Globulin 2.4, Albumin/Globulin Ratio 1.8 11/10/24 10:57: Urine Color [place], Urine Appearance Slightly cloudy, Urine pH 6.5, Ur Specific [place] 1.030, Urine Protein 2+ A, Urine Glucose (UA) Negative, Urine Ketones Small, Urine Blood 3+ A, Urine Nitrate Negative, Urine Bilirubin Negative, Urine Urobilinogen 0.2, Ur Leukocyte Esterase Trace A, Urine RBC 10-20, Urine WBC Occasional, Ur Squamous Epith Cells Occasional, Urine Bacteria 1+ 11/10/24 10:28 11/10/24 10:28 Orders (Tests/Meds): ED MEDICATIONS Discontinued Medications Generic Name Dose Route Start Last Admin Trade Name Chante PRN Reason Stop Dose Admin Trimethoprim/Sulfamethoxazole 1 each 11/10/24 12:28 11/10/24 12:44 Sulfa/Trimethoprim 1 Tablet PO 11/10/24 12:29 1 each ONCE ONE Administration ORDERS Category Date Time Status CT abdomen pelvis wo con Stat Cat Scan 11/10/24 11:07 Completed Complete Blood Count Auto Diff Stat Lab 11/10/24 10:28 Completed Comprehensive Metabolic Panel Stat Lab 11/10/24 10:28 Completed UA [Urinalysis and Microscopic] Stat Lab 11/10/24 10:57 Completed Urine Culture Stat Micro 11/10/24 10:57 Received Medical Decision Narrative: In summary, this patient is a 63-year-old female presenting to the Emergency Department for evaluation of burning when she pees and hematuria. Differential diagnoses considered include but are not limited to cystitis, pyelonephritis, ureterolithiasis, interstitial cystitis, vaginal atrophy/vaginitis. Ruling out the most morbid conditions drove assessment. It should be noted patient's history includes bipolar disorder which is not at goal therapy. This complicates all aspects of care by increasing patient's risk for morbidity. I reviewed patient's past medical records and noted admission in August for encephalopathy, presumed metabolic. On exam, the patient is lying in bed in no acute distress. She has no concerns or complaints except for the difficulty with urinating and burning when she pees. She does have some suprapubic tenderness but otherwise abdominal exam is benign. Workup included CBC, CMP, urinalysis, urine culture, CT abdomen and pelvis without IV contrast. I independently interpreted CT scan prior to the radiologist read and noted no obvious obstructive uropathy. She is constipated. Please see their read for final interpretation. Labs were obtained that demonstrated reassuring CBC with no significant leukocytosis, reassuring chemistry with no CONNOR. Urine is concerning for infection with proteinuria, 3+ blood, trace leukocyte esterase, 1+ bacteria. On reassessment, patient is resting comfortably at her baseline. I feel she does have a urinary tract infection I feel she is appropriate for discharge with antibiotics and bowel cleanout. Will treat with Bactrim. She was given instructions for supportive management, strict return precautions, and instructions for close follow-up with primary care. Patient was discharged after all questions were answered. Critical Care Critical Care Time Critical Care Time: No
[2024-11-10 12:20] LABS: Appearance,Urine Slightly Cloudy (Clear); Color,Urine PINK (Yellow); PH,Urine 6.5 (5.0-8.5)
[2024-11-10 12:21] LABS: Glucose,Urine (UA) Negative (Negative); Protein,Urine 2+ (Negative)
[2024-11-10 12:22] LABS: Bilirubin,Urine Negative (Negative); Blood, Urine 3+ (Negative); Ketones,Urine Small (Negative); Leukocyte Esterase,Urine Trace (Negative); Nitrate,Urine Negative (Negative); Urobilinogen,Urine 0.2 EU/dl (0.2)
[2024-11-10 12:23] LABS: Bacteria,Urine 1+ /lpf; Squamous Epithelial Cell,Urine Occasional #/hpf (0-5); WBC,Urine Occasional #/hpf (0-3)
[2024-11-10] MEDS: SULFA/TRIMETHOPRIM 1 TABLET 1 EACH PO (12:44)
[2024-11-10 12:51] VITALS: BP 123/69; PULSE 96; RESP 13; TEMP 36.7
== END 2024-11-10 12:52 | disposition home or self-care (01) ==
PROVIDERS: Emergency Provider Emergency Medicine; PCP Nurse Practitioner
DX: N39.0 Urinary tract infection, site not specified (principal); K59.00 Constipation, unspecified; R35.0 Frequency of micturition; R30.9 Painful micturition, unspecified; R31.9 Hematuria, unspecified
CPT/HCPCS: 74176; 80053; 81001; 85025; 87086; 99284

== ENCOUNTER 2024-11-20 11:19 | Emergency (ER) | payer MEDICARE, OTHER, SELFPAY ==
[2024-11-20 11:54] VITALS: BP 184/81; PULSE 117; RESP 15; TEMP 36.6; O2SAT 100; BMI 25.4
[2024-11-20 12:00] VITALS: BP 126/73; PULSE 105; O2SAT 96
--- NOTE | 2024-11-20 12:00 | XR_ITS ---
FINAL REPORT CLINICAL HISTORY: left little toe injury, redness and swelling to 5th digit COMPARISON: None FINDINGS: AP, oblique and lateral views of the left foot were obtained. There is no acute fracture or dislocation. The joint spaces are preserved. Soft tissues are unremarkable. IMPRESSION: No acute osseous abnormality of the left foot. Reviewed, Interpreted and Dictated by Binta Gan MD Transcribed by Fern Nice Authenticated and . [facility]
[2024-11-20] MEDS: IBUPROFEN 400 MG TABLET PO (12:10)
[2024-11-20 12:32] LABS: Microscopic, Urine URINE MICROSCOPIC (MICROSCOPIC)
[2024-11-20 12:33] VITALS: BP 140/121; PULSE 95; O2SAT 91
[2024-11-20 12:33] LABS: Basophils % 0.7 % (0.1-2.0); Eosinophils # 0.2 K/mm3 (0.0-0.4); Eosinophils % 3.6 % (0.1-12.0); Hemoglobin 10.5 g/dL (12.2-16.2); Lymphocytes # 1.3 K/mm3 (0.7-4.5); Lymphocytes % 28.1 % (10-50); Mean Corpuscular HGB Conc 32.8 g/dL (31.8-35.4); Mean Corpuscular Volume 91.4 fl (81-99); Mean Platelet Volume 9.1 fl (7.4-10.4); Monocytes # 0.5 K/mm3 (0.1-1.0); Monocytes % 10.7 % (1.7-9.3); Neutrophils # 2.5 K/mm3 (1.8-7.8); Neutrophils % 56.2 % (37.0-80.0); Platelet Count 249 K/mm3 (142-424); Red Cell Distribution Width 13.7 % (11.5-17.5); White Blood Count 4.5 K/mm3 (4.8-10.8)
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
[2024-11-20 12:42] LABS: Chloride 105 mmol/L (98-107); Potassium 4.4 mmoL/L (3.5-5.1); Sodium 136 mmol/L (136-145)
[2024-11-20 12:45] LABS: Alanine Aminotransferase 25 U/L (12-78); Albumin/Globulin Ratio 1.7 (1.1-1.8); Alkaline Phosphatase 85 U/L (38-126); Anion Gap 8.4 mEq/L (5-15); Aspartate Amino Transferase 43 U/L (14-36); Bilirubin,Total 0.3 mg/dl (0.2-1.3); Blood Urea Nitrogen 16 mg/dl (7-17); Carbon Dioxide 27 mmol/L (22.0-30.0); Creatinine Clearance Estimated 52 mL/min (50-200); Estimated Glomerular Filt Rate 63 ml/min (>60); GFR (African American) 76 ML/MIN (>60); Globulin 2.3 g/dL (1.3-3.2); Total Protein,Serum 6.3 g/dl (6.3-8.2)
[2024-11-20 12:46] LABS: Calcium 9.8 mg/dl (8.4-10.2); Glucose 167 mg/dl (74-100)
[2024-11-20 13:00] VITALS: BP 116/64; PULSE 87; O2SAT 98
[2024-11-20 13:17] LABS: Appearance,Urine CLEAR (Clear); Blood, Urine Negative (Negative); Color,Urine YELLOW (Yellow); Glucose,Urine (UA) Negative (Negative); Ketones,Urine TRACE (Negative); Leukocyte Esterase,Urine Negative (Negative); Nitrate,Urine Negative (Negative); Protein,Urine Negative (Negative); Specific Gravity, Urine >= 1.030 (1.005-1.030); Urobilinogen,Urine 0.2 EU/dl (0.2)
--- NOTE | 2024-11-20 13:29 | ECG_ITS ---
APPROVED REPORT Exam: Resting ECG HR:81 bpm ECG Measurements Heart Rate 81 AXES WA 182 P 82 QRSd 89 QRS 77 QT 337 T 80 QTc 375 Conclusion Sinus rhythm Electronically signed by : MAGALIE TRIVEDI, 11/21/2024 07:31:26
[2024-11-20 13:30] VITALS: BP 125/67; PULSE 82; O2SAT 98
[2024-11-20 13:33] LABS: Barbiturates Screen,Urine Negative ng/ml (<200)
[2024-11-20 13:34] LABS: Benzodiazepines Screen,Urine Positive ng/ml (<200)
[2024-11-20 13:35] LABS: Amphetamine/Metha Screen,Urine Negative ng/ml (<1000); Methadone Screen,Urine Negative ng/ml (<300)
[2024-11-20 13:36] LABS: Cannabinoid Screen,Urine Negative ng/ml (<50)
[2024-11-20 13:37] LABS: Cocaine Screen,Urine Negative ng/ml (<300); Opiate Screen,Urine Negative ng/ml (<300)
[2024-11-20 13:38] LABS: Acetaminophen 21 ug/ml (10-30)
[2024-11-20 13:38] LABS: Phencyclidine Screen,Urine Negative ng/ml (<25)
[2024-11-20 13:39] LABS: Ethyl Alcohol < 10 mg/dl (0-10); Salicylate < 1.0 mg/dL (2.0-20.0)
[2024-11-20 13:52] LABS: Bilirubin,Urine Negative (Negative)
[2024-11-20 13:53] VITALS: BP 125/67; PULSE 82; RESP 19; TEMP 37.1; O2SAT 98
[2024-11-20 13:54] LABS: Bacteria,Urine Trace /lpf; Squamous Epithelial Cell,Urine Occasional #/hpf (0-5); Uric Acid Crystals,Urine 4+ /lpf
[2024-11-22 16:24] LABS: Free Valproic Acid (Depakote) 8.4 ug/mL (6.0-22.0)
== END 2024-11-20 13:53 | disposition home or self-care (01) ==
PROVIDERS: Emergency Provider Emergency Medicine; PCP Nurse Practitioner
DX: F30.9 Manic episode, unspecified (principal)
CPT/HCPCS: 73630; 80053; 80165; 80307; 80320; 80329; 81001; 85025; 93005; 99284